=== PATIENT | male | born 1960 | race Caucasian/White ===

== ENCOUNTER → 2018-01-14 | Outpatient (CLI) | payer MEDICARE ==
--- NOTE | 2018-01-15 10:35 | XCELERA REPORT ---
[address] [address] Lower Extremity Arterial Evaluation Name: PATRICE MORGAN Age: 57 yrs Gender: Male : 1960 Patient Status: Outpatient Patient Location: Study Date: 01/14/2018 11:11 AM Procedure: A color flow and duplex scan of the lower extremity arteries was performed bilaterally with velocity and waveform anaylsis. Reason For Study: ULCER Ordering Physician: SONU NEWMAN Performed By: Joanie Mora Measurements and Calculations Right Left SLITTER CUT OFF OPERATOR PSV 161.5 188.6 cm/sec Prox PFA PSV 79.1 51.9 cm/sec Prox SFA PSV 143.8 139.0 cm/sec Mid SFA PSV -96.8 -87.7 cm/sec Dist SFA PSV -76.6 -95.9 cm/sec Prox Pop A PSV 52.8 114.1 cm/sec Dist KAUSHAL PSV 72.3 cm/sec Dist AUTO RESEARCH ENGINEER PSV 75.4 cm/sec Devaughn Pedis PSV 23.2 cm/sec Right Side Arterial Evaluation Below Knee amputation . Normal velocity and triphasic waveforms noted from the Common Femoral artery to the Popliteal artery . 0 % stenosis noted. Ankle Brachial index not applicable.. Left Side Arterial Evaluation Normal velocity and triphasic waveforms noted from the Common Femoral artery to the Popliteal artery. Biphasic in the infrageniculate vessels. 0-19% stenosis at the infrageniculate vessels. Ankle Brachial index not done due to bandaging. Interpretation Summary No hemodynamically significant lesions in the right lower extremity only, on duplex imaging, at rest. BKA. Mild hemodynamically significant lesions in the left lower extremity only, on duplex imaging, at rest. : SONU NEWMAN > Sonu Newman
== END ==
LOC: SP 10:41
PROVIDERS: ATTEND Surgery
DX: L97.222 Non-pressure chronic ulcer of left calf with fat layer exposed (principal)
CPT/HCPCS: 93925

== ENCOUNTER → 2018-02-15 | Outpatient (CLI) | payer MEDICARE ==
[2018-02-15 10:50] LABS: ABSOLUTE EOSINOPHILS # (AUTO) 0.1 10^3/uL (0.0-0.6); ABSOLUTE LYMPHOCYTES (AUTO) 1.5 10^3/uL (0.5-4.7); ABSOLUTE MONOCYTES (AUTO) 0.5 10^3/uL (0.1-1.4); ABSOLUTE NEUT (AUTO) 5.9 10^3/uL (1.7-8.2); BASOPHILS % (AUTO) 0.3 % (0-2); EOSINOPHILS % (AUTO) 1.4 % (0-6); HEMATOCRIT 39.7 % (37.9-51.0); HEMOGLOBIN 13.4 g/dL (13.5-17.0); LYMPHOCYTES % (AUTO) 18.4 % (13-45); MEAN CORPUSCULAR HEMOGLOBIN 28.6 pg (27.0-33.4); MEAN CORPUSCULAR HGB CONC 33.6 g/dL (32.0-36.0); MEAN CORPUSCULAR VOLUME 85 fl (80-97); MONOCYTES % (AUTO) 6.1 % (3-13); PLATELET COUNT 215 10^3/uL (150-450); RED BLOOD COUNT 4.67 10^6/uL (4.35-5.55); RED CELL DISTRIBUTION WIDTH 13.5 % (11.5-14.0); SEGMENTED NEUTROPHILS % (AUTO) 73.8 % (42-78); TOTAL CELLS COUNTED % (AUTO) 100 %
[2018-02-15 11:07] LABS: ALANINE AMINOTRANSFERASE 29 U/L (21-72); ALKALINE PHOSPHATASE 65 U/L (38-126); ANION GAP 12 (5-19); ASPARTATE AMINO TRANSFERASE 23 U/L (17-59); BILIRUBIN,DIRECT 0.3 mg/dL (0.0-0.4); BILIRUBIN,TOTAL 0.7 mg/dL (0.2-1.3); BLOOD UREA NITROGEN 15 mg/dL (7-20); CARBON DIOXIDE 36 mmol/L (22-30); CHLORIDE 94 mmol/L (98-107); GLUCOSE 164 mg/dL (75-110); POTASSIUM 4.2 mmol/L (3.6-5.0); SODIUM 141.8 mmol/L (137-145); TOTAL PROTEIN 7.5 g/dL (6.3-8.2)
== END ==
LOC: OD 09:47
PROVIDERS: ATTEND Surgery
DX: L97.222 Non-pressure chronic ulcer of left calf with fat layer exposed (principal)
CPT/HCPCS: 36415; 80053; 85025

== ENCOUNTER 2018-05-01 15:47 | Emergency (ER) | payer MEDICARE ==
[2018-05-01 15:55] VITALS: BP 144/66
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
== END 2018-05-01 16:26 | disposition home or self-care (01) ==
LOC: ER 15:47
DX: S29.9XXA Unspecified injury of thorax, initial encounter (principal); V89.2XXA Person injured in unspecified motor-vehicle accident, traffic, initial encounter; Z88.3 Allergy status to other anti-infective agents; E11.9 Type 2 diabetes mellitus without complications; Z89.511 Acquired absence of right leg below knee
CPT/HCPCS: 99282

== ENCOUNTER 2018-12-18 08:48 | Observation (INO) | payer MEDICARE ==
--- NOTE | 2018-12-18 10:20 | ER Document Report ---
ED Medical Screen (RME) - General Chief Complaint: Wound Infection Stated Complaint: FOOT PAIN Time Seen by Provider: 12/18/18 10:15 Primary Care Provider: TG ARANDA MD [Primary Care Provider] - Follow up as needed Notes: 58 years old male with a history of diabetes presents today with left foot ulcer which is oozing pus. He is an uncontrolled diabetic. He cannot afford to buy medications therefore he does not take anything. TRAVEL OUTSIDE OF THE [place] IN LAST 30 DAYS: No - Related Data Allergies/Adverse Reactions: sulfamethoxazole [From Bactrim] Allergy (Mild, Verified 12/18/18 08:49) trimethoprim [From Bactrim] Allergy (Mild, Verified 12/18/18 08:49) Past Medical History Endocrine Medical History: Reports: Hx Diabetes Mellitus Type 2 Renal/ Medical History: Denies: Hx Peritoneal Dialysis Past Surgical History: Reports: Hx Orthopedic Surgery - Right BKA Physical Exam - Vital signs Vitals: Temp Pulse Resp BP Pulse Ox 98.6 F 85 20 187/81 H 96 12/18/18 08:57 12/18/18 08:57 12/18/18 08:57 12/18/18 08:57 12/18/18 08:57 Course - Vital Signs Vital signs: Temp Pulse Resp BP Pulse Ox 98.6 F 85 20 187/81 H 96 12/18/18 08:57 12/18/18 08:57 12/18/18 08:57 12/18/18 08:57 12/18/18 08:57 Doctor's Discharge - Discharge Referrals: TG ARANDA MD [Primary Care Provider] - Follow up as needed
[2018-12-18 10:56] LABS: ABSOLUTE EOSINOPHILS # (AUTO) 0.1 10^3/uL (0.0-0.6); ABSOLUTE LYMPHOCYTES (AUTO) 1.3 10^3/uL (0.5-4.7); ABSOLUTE MONOCYTES (AUTO) 0.4 10^3/uL (0.1-1.4); BASOPHILS % (AUTO) 0.5 % (0-2); EOSINOPHILS % (AUTO) 1.6 % (0-6); HEMOGLOBIN 13.1 g/dL (13.5-17.0); LYMPHOCYTES % (AUTO) 19.6 % (13-45); MEAN CORPUSCULAR HGB CONC 34.4 g/dL (32.0-36.0); MEAN CORPUSCULAR VOLUME 87 fl (80-97); MONOCYTES % (AUTO) 5.5 % (3-13); PLATELET COUNT 191 10^3/uL (150-450); RED BLOOD COUNT 4.37 10^6/uL (4.35-5.55); RED CELL DISTRIBUTION WIDTH 12.9 % (11.5-14.0); SEGMENTED NEUTROPHILS % (AUTO) 72.8 % (42-78); TOTAL CELLS COUNTED % (AUTO) 100 %; WHITE BLOOD COUNT 6.9 10^3/uL (4.0-10.5)
[2018-12-18 11:23] LABS: ALANINE AMINOTRANSFERASE 13 U/L (21-72); ALBUMIN 4.1 g/dL (3.5-5.0); ALKALINE PHOSPHATASE 60 U/L (38-126); ANION GAP 10 (5-19); ASPARTATE AMINO TRANSFERASE 17 U/L (17-59); BILIRUBIN,DIRECT 0.3 mg/dL (0.0-0.4); BLOOD UREA NITROGEN 15 mg/dL (7-20); CALCIUM 9.5 mg/dL (8.4-10.2); CARBON DIOXIDE 29 mmol/L (22-30); CHLORIDE 100 mmol/L (98-107); GLUCOSE 216 mg/dL (75-110); POTASSIUM 4.5 mmol/L (3.6-5.0); SODIUM 139.4 mmol/L (137-145); TOTAL PROTEIN 7.4 g/dL (6.3-8.2)
--- NOTE | 2018-12-18 11:48 | RADIOLOGY REPORT (SQ) ---
EXAM DESCRIPTION: FOOT LEFT COMPLETE COMPLETED DATE/TIME: 12/18/2018 11:21 am REASON FOR STUDY: Osteomyelitis COMPARISON: None. NUMBER OF VIEWS: Three views. TECHNIQUE: AP, lateral and oblique without weight bearing radiographic images acquired of the left f oot. LIMITATIONS: None. FINDINGS: MINERALIZATION: Osteopenia. BONES: Deformity of the 5th digit. No obvious osteomyelitis. JOINTS: No erosions. No ray-articular osteopenia. No chondrocalcinosis. SOFT TISSUES: Soft tissue ulcer adjacent to the distal 5th metatarsal. OTHER: No other significant finding. IMPRESSION: Soft tissue ulcer. No obvious osteomyelitis. TECHNICAL DOCUMENTATION: JOB ID: [id number] [email or web address])- All Rights Reserved Reading location - IP/workstation name: [email or web address]
[2018-12-18] MEDS ORDERED: PIPERACILLIN/TAZOBACTAM 3.375 GM VIAL IV ONE (14:44)
[2018-12-18] MEDS ORDERED: VANCOMYCIN HCL INJ 1000 MG VIAL IV ONE (14:44)
[2018-12-18] MEDS ORDERED: FENTANYL CITRATE INJ/PF 100 MCG/2 ML AMPUL IV ONE (14:50)
[2018-12-18] MEDS ORDERED: ONDANSETRON HCL INJ/PF 4 MG/2 ML SDV IV ONE (14:50)
[2018-12-18] MEDS ORDERED: NORMAL SALINE 1000 ML 1,000 ML IV PRN (15:48)
[2018-12-18] MEDS ORDERED: GLUCAGON,HUMAN RECOMB 1 MG INJ IM PRN (15:48)
[2018-12-18] MEDS ORDERED: DEXTROSE 40% GEL 15 GM TUBE PO PRN ×2 (15:48)
[2018-12-18] MEDS ORDERED: DEXTROSE 50%-WATER 25 GM/50 ML DISP.SYRIN IV PRN ×2 (15:48)
[2018-12-18] MEDS ORDERED: VANCOMYCIN HCL 0 MG in DEXTROSE 5%-WATER 250 ML IV NR (16:00)
[2018-12-18 16:10] LABS: INTERNATIONAL RATION (INR) 0.94; PARTIAL THROMBOPLASTIN TIME 25.2 SEC (23.5-35.8); PROTHROMBIN TIME 13.1 SEC (11.4-15.4)
--- NOTE | 2018-12-18 17:40 | PDOC H&P ---
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 Patient says that he underwent shaving of a large painful callus on his left foot 4 weeks ago by his hull grinder. He says that during the procedure he did had some bleeding and thought it would eventually healed. He said that he started developing an increasing wound on the left plantar aspect of his left foot. He said that a week ago, he started noticing mostly serous discharge from the wound but later noticed foul-smelling discharge coming from the ulcer. He denies any fever or chills. In the ER, he was evaluated by surgery who did not deem he needs debridement or surgical intervention at this time but did recommend IV antibiotics. Past Medical History Endocrine Medical History: Reports: Diabetes Mellitus Type 2 Past Surgical History Past Surgical History: Reports: Orthopedic Surgery - Right BKA Social History Smoking Status: Former Smoker Family History Family History: Reviewed & Not Pertinent Parental Family History Reviewed: Yes - no premature CAD Children Family History Reviewed: No Sibling(s) Family History Reviewed.: No Medication/Allergy Allergies/Adverse Reactions: sulfamethoxazole [From Bactrim] Allergy (Mild, Verified 12/18/18 08:49) trimethoprim [From Bactrim] Allergy (Mild, Verified 12/18/18 08:49) Review of Systems All systems: reviewed and no additional remarkable complaints except as stated - as mentioned in HPI Physical Exam Vital Signs: Temp Pulse Resp BP Pulse Ox 98.6 F 85 20 187/81 H 96 12/18/18 08:57 12/18/18 08:57 12/18/18 08:57 12/18/18 08:57 12/18/18 08:57 Intake & Output 12/17/18 12/18/18 12/19/18 06:59 06:59 06:59 Weight 320 lb 8.834 oz General appearance: PRESENT: no acute distress, well-developed, well-nourished Head exam: PRESENT: atraumatic, normocephalic Eye exam: PRESENT: conjunctiva pink, EOMI, PERRLA. ABSENT: scleral icterus Ear exam: PRESENT: normal external ear exam Mouth exam: PRESENT: moist, tongue midline Neck exam: ABSENT: carotid bruit, JVD, lymphadenopathy, thyromegaly Respiratory exam: PRESENT: clear to auscultation flower. ABSENT: rales, rhonchi, wheezes Cardiovascular exam: PRESENT: RRR. ABSENT: diastolic murmur, rubs, systolic mur mur Pulses: PRESENT: normal dorsalis pedis pul Vascular exam: PRESENT: normal capillary refill GI/Abdominal exam: PRESENT: normal bowel sounds, soft. ABSENT: distended, guarding, mass, organolmegaly, rebound, tenderness Rectal exam: PRESENT: deferred Extremities exam: PRESENT: other - right BKA, note of an ulcer on the left foot, appears fluctuant with no active draiange on encounter or warmth Neurological exam: PRESENT: alert, awake, oriented to person, oriented to place, oriented to time, oriented to situation, CN II-XII grossly intact. ABSENT: motor sensory deficit Results Laboratory Results: 12/18/18 10:45 12/18/18 10:45 12/18/18 12/18/18 10:45 10:45 WBC 6.9 RBC 4.37 Hgb 13.1 L Hct 38.0 MCV 87 MCH 30.0 MCHC 34.4 RDW 12.9 Plt Count 191 Seg Neutrophils % 72.8 Lymphocytes % 19.6 Monocytes % 5.5 Eosinophils % 1.6 Basophils % 0.5 Absolute Neutrophils 5.0 Absolute Lymphocytes 1.3 Absolute Monocytes 0.4 Absolute Eosinophils 0.1 Absolute Basophils 0.0 Sodium 139.4 Potassium 4.5 Chloride 100 Carbon Dioxide 29 Anion Gap 10 BUN 15 Creatinine 0.72 Est GFR ( Amer) > 60 Est GFR (Non-Af Amer) > 60 Glucose 216 H Calcium 9.5 Total Bilirubin 1.0 AST 17 ALT 13 L Alkaline Phosphatase 60 Total Protein 7.4 Albumin 4.1 Impressions: Foot X-Ray 12/18/18 10:19 IMPRESSION: Soft tissue ulcer. No obvious osteomyelitis. Assessment & Plan - Diagnosis (1) Cellulitis Is this a current diagnosis for this admission?: Yes Plan: There is noticeable ulcer on the plantar aspect of the left foot. There is fluctuance but no noticeable significant erythema. No apparent necrotic tissue. As mentioned surgery has evaluated patient and has recommended IV antibiotics at this time. Per ER provider, day did not is some foul-smelling discharge coming out from the wound earlier. Unable to appreciate this during encounter. This could be likely a mild beginning cellulitis. Patient does have history of MRSA cellulitis on the same extremity. Will start patient on vancomycin for now. Will also order for wound culture. Surgery will reassess the patient tomorrow morning. (2) Diabetes mellitus Is this a current diagnosis for this admission?: Yes Plan: Accu-Cheks AC at bedtime. Start sliding scale insulin. - Time Time Spent: 30 to 50 Minutes
--- NOTE | 2018-12-18 17:55 | RADIOLOGY REPORT (SQ) ---
EXAM DESCRIPTION: MRI LT LOWER EXTREMITY COMBO COMPLETED DATE/TIME: 12/18/2018 5:42 pm REASON FOR STUDY: Left foot infection COMPARISON: Plain radiograph TECHNIQUE: Multiplanar imaging of the left foot to include T1-weighted, postcontrast T1-weighted, an d T2-weighted images. CONTRAST TYPE AND DOSE: 20 mL Dotarem. RENAL FUNCTION: Not indicated. ACR Type II contrast agent associated with few, if any, unconfounded cases of NSF LIMITATIONS: None. FINDINGS: BONE MARROW: No marrow signal alteration. Specifically no marrow replacement or marrow ed kalyan. No evidence for osteomyelitis. No cortical break through. Marked deformity secondary to prior amputations. SOFT TISSUES: Soft tissue granulation tissue along the 5th metatarsal. No focal abscess. Enhancemen t. OTHER: No other significant finding. IMPRESSION: NO EVIDENCE FOR OSTEOMYELITIS. Granulation tissue. No soft tissue abscess. TECHNICAL DOCUMENTATION: JOB ID: [id number] [employer]- All Rights Reserved Reading location - IP/workstation name: [email or web address]
[2018-12-18] MEDS: INSULIN LISPRO 100 UNIT/ML 3 ML VIAL SUBCUT SCH ×2 (20:04→22:57)
--- NOTE | 2018-12-18 20:49 | PDOC CONSULTATION ---
Consultation Consult Date: 12/18/18 Consult reason:: left foot ulcer History of Present Illness Admission Date/PCP: 12/18/18 16:12 TG ARANDA MD Patient complains of: drainage from left foot ulcer History of Present Illness: PATRICE MORGAN is a 58 year old male who is an insulin dependent diabetic post right BKA had callous from left foot debrided by his oil sprayer about 4 weeks ago. There was some bleeding at that time. A week ago started draining from the left foot and today noted foul smelling drainage. I have seen initially in ED when asked by one of the ED physicians to check the wound. There was a small amount of foul smelling drainage from a very small ulcer in the middle of callous from left lateral foot. No abscess could be appreciated, subsequent MRI showed no osteomyelitis and no abscess. Past Medical History Endocrine Medical History: Reports: Diabetes Mellitus Type 2 Past Surgical History Past Surgical History: Reports: Orthopedic Surgery - Right BKA Social History Smoking Status: Former Smoker - Advance Directive Resuscitation Status: Full Code Family History Family History: Reviewed & Not Pertinent Parental Family History Reviewed: Yes Children Family History Reviewed: No Sibling(s) Family History Reviewed.: No Medication/Allergy Allergies/Adverse Reactions: sulfamethoxazole [From Bactrim] Allergy (Mild, Verified 12/18/18 08:49) trimethoprim [From Bactrim] Allergy (Mild, Verified 12/18/18 08:49) Review of Systems Constitutional: ABSENT: other - no feve/chills Eyes: PRESENT: other - no visual/hearing changes Cardiovascular: PRESENT: other - no chest pains/cough Gastrointestinal: PRESENT: other - no pains Integumentary: PRESENT: other - left lateral foot with callous and a very small ulcer about 3-4 mm with small amount of foul smelling drainage Physical Exam Vital Signs: Temp Pulse Resp BP Pulse Ox 98.5 F 77 16 181/77 H 98 12/18/18 18:19 12/18/18 18:19 12/18/18 18:19 12/18/18 18:19 12/18/18 18:19 Intake & Output 12/17/18 12/18/18 12/19/18 06:59 06:59 06:59 Weight 2.58 kg General appearance: PRESENT: no acute distress Head exam: PRESENT: atraumatic Eye exam: PRESENT: conjunctiva pink Mouth exam: PRESENT: moist Neck exam: PRESENT: full ROM Respiratory exam: PRESENT: clear to auscultation flower Cardiovascular exam: PRESENT: RRR Pulses: PRESENT: normal radial pulses Vascular exam: PRESENT: normal capillary refill GI/Abdominal exam: PRESENT: soft, other - non tender Rectal exam: PRESENT: deferred Extremities exam: PRESENT: other - Right BKA Musculoskeletal exam: PRESENT: ambulatory Neurological exam: PRESENT: alert, oriented to person, oriented to place, oriented to time, oriented to situation Psychiatric exam: PRESENT: appropriate affect Skin exam: PRESENT: normal color, warm Results Laboratory Results: 12/18/18 10:45 12/18/18 10:45 12/18/18 12/18/18 12/18/18 10:45 10:45 15:44 WBC 6.9 RBC 4.37 Hgb 13.1 L Hct 38.0 MCV 87 MCH 30.0 MCHC 34.4 RDW 12.9 Plt Count 191 Seg Neutrophils % 72.8 Lymphocytes % 19.6 Monocytes % 5.5 Eosinophils % 1.6 Basophils % 0.5 Absolute Neutrophils 5.0 Absolute Lymphocytes 1.3 Absolute Monocytes 0.4 Absolute Eosinophils 0.1 Absolute Basophils 0.0 Sodium 139.4 Potassium 4.5 Chloride 100 Carbon Dioxide 29 Anion Gap 10 BUN 15 Creatinine 0.72 Est GFR ( Amer) > 60 Est GFR (Non-Af Amer) > 60 Glucose 216 H Lactic Acid Calcium 9.5 Total Bilirubin 1.0 AST 17 ALT 13 L Alkaline Phosphatase 60 Total Protein 7.4 Albumin 4.1 Blood Type O NEGATIVE Antibody Screen NEGATIVE 12/18/18 18:00 WBC RBC Hgb Hct MCV MCH MCHC RDW Plt Count Seg Neutrophils % Lymphocytes % Monocytes % Eosinophils % Basophils % Absolute Neutrophils Absolute Lymphocytes Absolute Monocytes Absolute Eosinophils Absolute Basophils Sodium Potassium Chloride Carbon Dioxide Anion Gap BUN Creatinine Est GFR ( Amer) Est GFR (Non-Af Amer) Glucose Lactic Acid 1.7 Calcium Total Bilirubin AST ALT Alkaline Phosphatase Total Protein Albumin Blood Type Antibody Screen Impressions: Foot X-Ray 12/18/18 10:19 IMPRESSION: Soft tissue ulcer. No obvious osteomyelitis. Lower Extremity MRI 12/18/18 14:51 IMPRESSION: NO EVIDENCE FOR OSTEOMYELITIS. Granulation tissue. No soft tissue abscess. Assessment & Plan - Diagnosis (1) Cellulitis Is this a current diagnosis for this admission?: Yes (2) Diabetes mellitus Is this a current diagnosis for this admission?: Yes - Time Time Spent: 30 to 50 Minutes - Inpatient Certification Medical Necessity: Need for IV Antibiotics - Plan Summary Plan Summary: Continue with IV antibiotics. No indication for surgical intervention at this time Agree with the patient to be followed at the wound care center
[2018-12-18] MEDS ORDERED: ACETAMINOPHEN 325 MG TABLET PO PRN (22:14)
[2018-12-18] MEDS ORDERED: HYDRALAZINE HCL INJ/PF 20 MG/1 ML SDV IV PRN (22:14)
[2018-12-18] MEDS ORDERED: SERTRALINE HCL 50 MG TABLET PO ONE (22:30)
[2018-12-18] MEDS ORDERED: INSULIN NPH (ISOPHANE), HUMAN 100 UNIT/ML 3 ML SUBCUT ONE (22:45)
[2018-12-18] MEDS ORDERED: AMLODIPINE BESYLATE 10 MG TABLET PO ONE (23:00)
[2018-12-18] MEDS: VANCOMYCIN HCL 1,500 MG in DEXTROSE 5%-WATER 250 ML IV SCH (23:00)
[2018-12-18] MEDS: KETOROLAC TROMETHAMINE INJ/PF 30 MG/1 ML SDV IV PRN (23:03)
--- NOTE | 2018-12-18 23:03 | ER Document Report ---
Entered by MARIA E VILLALTA SCRIBE 12/18/18 1511 Acting as scribe for:KAILA NIEVES DO ED Wound - General Chief Complaint: Wound Infection Stated Complaint: FOOT PAIN Time Seen by Provider: 12/18/18 10:15 Mode of Arrival: Ambulatory Information source: Patient Notes: 58-year-old male with diabetes who presents to the emergency department today with complaints of an infection to his left foot. Patient states this originally started when he was getting a callus shaved off by a flight service agent. Patient states that this area on his foot has been worsening over the last two weeks. 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 Patient denies usage of blood thinning medications. TRAVEL OUTSIDE OF THE [place] IN LAST 30 DAYS: No - Related Data Allergies/Adverse Reactions: sulfamethoxazole [From Bactrim] Allergy (Mild, Verified 12/18/18 08:49) trimethoprim [From Bactrim] Allergy (Mild, Verified 12/18/18 08:49) Past Medical History - General Information source: Patient - Social History Smoking Status: Former Smoker Cigarette use (# per day): No Chew tobacco use (# tins/day): No Frequency of alcohol use: None Drug Abuse: None Lives with: Family Family History: Reviewed & Not Pertinent Patient has suicidal ideation: No Patient has homicidal ideation: No Endocrine Medical History: Reports: Hx Diabetes Mellitus Type 2 Past Surgical History: Reports: Hx Orthopedic Surgery - Right BKA Review of Systems - Review of Systems Constitutional: See HPI, Diaphoresis EENT: No symptoms reported Cardiovascular: No symptoms reported Respiratory: No symptoms reported Gastrointestinal: No symptoms reported Genitourinary: No symptoms reported Male Genitourinary: No symptoms reported Musculoskeletal: No symptoms reported Skin: See HPI, Lesions Hematologic/Lymphatic: No symptoms reported Neurological/Psychological: No symptoms reported -: Yes All other systems reviewed and negative Physical Exam - Vital signs Vitals: Temp Pulse Resp BP Pulse Ox 98.6 F 85 20 187/81 H 96 12/18/18 08:57 12/18/18 08:57 12/18/18 08:57 12/18/18 08:57 12/18/18 08:57 Interpretation: Normal - General General appearance: Appears well, Alert - HEENT Head: Normocephalic, Atraumatic Eyes: Normal Pupils: PERRL - Respiratory Respiratory status: No respiratory distress Chest status: Nontender Breath sounds: Normal Chest palpation: Normal - Cardiovascular Rhythm: Regular Heart sounds: Normal auscultation Murmur: No - Abdominal Inspection: Normal Distension: No distension Bowel sounds: Normal Tenderness: Nontender Organomegaly: No organomegaly - Back Back: Normal, Nontender - Extremities General upper extremity: Normal inspection, Nontender, Normal color, Normal ROM, Normal temperature General lower extremity: Tender, Normal ROM. No: Negin's sign Notes: Patient with BKA on right Left foot with area of edema, tenderness, and drainage over fifth metatarsal. - Neurological Neuro grossly intact: Yes Cognition: Normal Orientation: AAOx4 [place] Coma Scale Eye Opening: Spontaneous [place]za Coma Scale Verbal: Oriented [place] Coma Scale Motor: Obeys Commands [place] Coma Scale Total: 15 Speech: Normal Motor strength normal: LUE, RUE, LLE, RLE Sensory: Normal - Psychological Associated symptoms: Normal affect, Normal mood - Skin Skin Temperature: Warm Skin Moisture: Dry Skin Color: Normal Course - Re-evaluation Re-evalutation: 12/18/18 14:30 Dr. Reese came to see the patient, requests admission for IV antibiotics, will not go to OR now. Patient with infection of left foot and concern for deeper infection. General surgery has been consulted and patient does not need debridement at this time. Discussed with hospitalist and will keep for IV antibiotics. Culture sent. Patient is agreeable to this plan. - Vital Signs Vital signs: Temp Pulse Resp BP Pulse Ox 98.5 F 77 16 181/77 H 98 12/18/18 18:19 12/18/18 18:19 12/18/18 18:19 12/18/18 18:19 12/18/18 18:19 - Laboratory Result Diagrams: 12/18/18 10:45 12/18/18 10:45 Laboratory results interpreted by me: 12/18/18 12/18/18 12/18/18 10:45 10:45 10:45 Hgb 13.1 L Glucose 216 H Hemoglobin A1c % 7.8 H ALT 13 L Discharge - Discharge Clinical Impression: Diabetic infection of left foot Condition: Stable Disposition: ADMITTED OBSERVATION Scribe Attestation: 12/18/18 23:03 I personally performed the services described in the documentation, reviewed and edited the documentation which was dictated to the scribe in my presence, and it accurately records my words and actions. I personally performed the services described in the documentation, reviewed and edited the documentation which was dictated to the scribe in my presence, and it accurately records my words and actions.
[2018-12-19] MEDS: VANCOMYCIN HCL 1,500 MG in DEXTROSE 5%-WATER 250 ML IV SCH ×2 (05:14→14:26)
[2018-12-19] MEDS ORDERED: LISINOPRIL 10 MG TABLET PO SCH (08:00)
[2018-12-19] MEDS ORDERED: FONDAPARINUX SODIUM INJ 2.5 MG/0.5 ML DISP.SYRIN SUBCUT SCH (08:00)
[2018-12-19] MEDS: INSULIN LISPRO 100 UNIT/ML 3 ML VIAL SUBCUT SCH ×2 (09:05→12:28)
[2018-12-19] MEDS: KETOROLAC TROMETHAMINE INJ/PF 30 MG/1 ML SDV IV PRN (09:57)
[2018-12-19] MEDS ORDERED: AMLODIPINE BESYLATE 10 MG TABLET PO SCH (10:00)
[2018-12-19] MEDS ORDERED: INSULIN NPH (ISOPHANE), HUMAN 100 UNIT/ML 3 ML SUBCUT SCH (10:00)
--- NOTE | 2018-12-19 15:28 | PDOC DISCHARGE SUMMARY ---
General - Admit/Disc Date/PCP Admission Date/Primary Care Provider: 12/18/18 16:12 TG ARANDA MD Discharge Date: 12/19/18 - Discharge Diagnosis (1) Diabetic infection of left foot Is this a current diagnosis for this admission?: Yes (2) Type 2 diabetes mellitus Is this a current diagnosis for this admission?: Yes (3) Hypertension Is this a current diagnosis for this admission?: Yes - Additional Information Resuscitation Status: Full Code Prescriptions: Clindamycin HCl 300 mg PO TID #30 capsule Home Medications: Amlodipine Besylate [Norvasc 10 mg Tablet] 10 mg PO DAILY 12/18/18 Aspirin [Ecotrin 81 mg EC Tablet] 81 mg PO DAILY 12/18/18 Calcium Carbonate/Vitamin D3 [Calcium 600 + Vit D Tablet] 1 tab PO DAILY 9 Cholecalciferol (Vitamin D3) [Vitamin D3 1000 Unit Tablet] 1,000 unit PO DAILY 12/18/18 Diclofenac Sodium [Voltaren 50 mg Tablet.dr] 100 mg PO QPM 12/18/18 Furosemide [Lasix 40 mg Tablet] 80 mg PO QAM 12/18/18 Gabapentin [Neurontin] 1,200 mg PO QAM 12/18/18 Glipizide [Glucotrol] 10 mg PO DAILY 12/18/18 Insulin Regular, Human [Humulin R (Reg) Insulin 100 unit/mL] 15 unit SUBCUT TID 12/18/18 Lisinopril [Prinivil] 10 mg PO QAM 12/18/18 Lovastatin 40 mg PO QPM 12/18/18 Metformin HCl [Glucophage Xr] 1,500 mg PO QAM 12/18/18 Metformin HCl [Glucophage Xr] 750 mg PO QPM 12/18/18 Multivitamin [Multiple Vitamins] 1 each PO DAILY 12/18/18 NPH, Human Insulin Isophane [Novolin N (NPH) Insulin 100 unit/mL] 40 unit SUBCUT BID 12/18/18 Mclain-3 Fatty Acids/Fish Oil [Fish Oil 300 mg Softgel] 1 each PO DAILY 12/18/18 Potassium Gluconate [Potassium] 600 mg PO DAILY 12/18/18 Sertraline HCl [Zoloft] 200 mg PO QPM 12/18/18 Vitamin A 8,000 unit PO DAILY 12/18/18 Clindamycin HCl 300 mg PO TID #30 capsule 12/19/18 History of Present Illness History of Present Illness: PATRICE MORGAN is a 58 year old male with a past medical history of insulin- dependent diabetes mellitus, diabetic neuropathy, prior right BKA, history of MRSA cellulitis on the left leg and hypertension who presented with draining wound on the left foot. Patient says that he underwent shaving of a large painful callus on his left foot 4 weeks ago by his health inspector. He says that during the procedure he did had some bleeding and thought it would eventually healed. He said that he started developing an increasing wound on the left plantar aspect of his left foot. He said that a week ago, he started noticing mostly serous discharge from the wound but later noticed foul-smelling discharge coming from the ulcer. He denies any fever or chills. In the ER, he was evalu ated by surgery who did not deem he needs debridement or surgical intervention at this time but did recommend IV antibiotics. Hospital Course Hospital Course: This is a very pleasant 58 years old male patient with past medical history of diabetes mellitus, hypertension, morbid obesity, history of right BKA and history of MRSA cellulitis in the left leg, presented with left diabetic wound. Of note about 4 weeks ago his health inspector debrided large painful callus on his left foot, and following the debridement he started to bleed and later it is secondarily infected and started to drain foul-smelling discharge. Patient denies any fever chills palpitation, diaphoresis, nausea or vomiting. His MRI of the involved foot ruled out osteomyelitis. Patient has been started empirically on Zosyn and vancomycin. Patient has been evaluated by Dr. Macias who states no need for debridement and he recommended to local wound care at wound care center. 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 I advised him to follow-up at the wound care clinic. I will discharge him with clindamycin. Physical Exam Vital Signs: Temp Pulse Resp BP Pulse Ox 98.3 F 81 16 164/72 H 95 12/19/18 12:00 12/19/18 12:00 12/19/18 12:00 12/19/18 12:00 12/19/18 12:00 Intake & Output 12/18/18 12/19/18 12/20/18 06:59 06:59 06:59 Intake Total 1337 Balance 1337 Weight 146.8 kg General appearance: PRESENT: no acute distress, morbidly obese Neck exam: ABSENT: carotid bruit, JVD, lymphadenopathy, thyromegaly Respiratory exam: PRESENT: clear to auscultation flower. ABSENT: rales, rhonchi, wheezes Cardiovascular exam: PRESENT: RRR. ABSENT: diastolic murmur, rubs, systolic murmur GI/Abdominal exam: PRESENT: normal bowel sounds, soft. ABSENT: distended, guarding, mass, organolmegaly, rebound, tenderness Extremities exam: PRESENT: other - Right BKA. Small draining ulcer on the left foot. Neurological exam: PRESENT: alert, awake, oriented to time, oriented to situation Psychiatric exam: PRESENT: normal mood Results Laboratory Results: 12/18/18 10:45 12/18/18 10:45 12/18/18 12/18/18 15:44 18:00 Lactic Acid 1.7 Blood Type O NEGATIVE Antibody Screen NEGATIVE Impressions: Foot X-Ray 12/18/18 10:19 IMPRESSION: Soft tissue ulcer. No obvious osteomyelitis. Lower Extremity MRI 12/18/18 14:51 IMPRESSION: NO EVIDENCE FOR OSTEOMYELITIS. Granulation tissue. No soft tissue abscess. Qualifiers - * PATIENT BEING DISCHARGED WITH ANY OF THE FOLLOWING DIAGNOSIS: No
[2018-12-19 16:21] VITALS: BP 181/77
[2018-12-19] MEDS ORDERED: SERTRALINE HCL 50 MG TABLET PO SCH (18:00)
== END 2018-12-19 17:28 | disposition home or self-care (01) ==
LOC: ER 08:48 → EH 16:12 → 4S 18:17
PROVIDERS: ADMIT Internal Medicine; ATTEND Internal Medicine
DX: E11.621 Type 2 diabetes mellitus with foot ulcer (principal); L97.529 Non-pressure chronic ulcer of other part of left foot with unspecified severity; E11.40 Type 2 diabetes mellitus with diabetic neuropathy, unspecified; I10 Essential (primary) hypertension; E66.01 Morbid (severe) obesity due to excess calories; L84 Corns and callosities; R61 Generalized hyperhidrosis; Z89.511 Acquired absence of right leg below knee; Z79.82 Long term (current) use of aspirin; Z79.899 Other long term (current) drug therapy; Z79.4 Long term (current) use of insulin; Z86.14 Personal history of Methicillin resistant Staphylococcus aureus infection; Z63.6 Dependent relative needing care at home; Z87.891 Personal history of nicotine dependence; Z98.890 Other specified postprocedural states
CPT/HCPCS: 99285; 96375; 96365; 96367; 86900; 86901; 36415 ×2; 87040; 87070; 87205; 86850; 82962 ×2; 85025; 85610; 85730; 87077; 80053; 87186; 80202; 83036; 83605; 73720; 73630; G0378 ×3; A9576; A9270 ×9; J3010; J1885 ×2; J1652; J2405; J7060 ×2; J7030; J3370 ×2; J2543; J1815

== ENCOUNTER 2019-01-01 15:01 | Inpatient (IN) | payer MEDICARE ==
[2019-01-01] MEDS ORDERED: VANCOMYCIN HCL INJ 1000 MG VIAL IV ONE (16:03)
[2019-01-01] MEDS ORDERED: NORMAL SALINE 1000 ML 1,000 ML IV ONE (16:03)
[2019-01-01] MEDS ORDERED: PIPERACILLIN/TAZOBACTAM 4.5 GM VIAL IV ONE (16:03)
[2019-01-01] MEDS ORDERED: ACETAMINOPHEN 325 MG TABLET PO ONE (16:03)
[2019-01-01] MEDS ORDERED: IBUPROFEN SUSP 100 MG/5 ML ORAL SYRINGE PO ONE (16:08)
--- NOTE | 2019-01-01 16:17 | ER Document Report ---
ED Medical Screen (RME) - General Chief Complaint: Fever Stated Complaint: FLU LIKE SYMPTOMS Time Seen by Provider: 01/01/19 16:15 Primary Care Provider: TG ARANDA MD [Primary Care Provider] - Follow up as needed TRAVEL OUTSIDE OF THE [place] IN LAST 30 DAYS: No - HPI Notes: 01/01/19 16:16 Patient presented to the ED complaining of fever and left foot ulcer which has eroded to the bone. Patient is a diabetic. Physical exam showed morbid obesity and left foot ulcer which is suspicious for osteomyelitis. - Related Data Allergies/Adverse Reactions: sulfamethoxazole [From Bactrim] Allergy (Mild, Verified 01/01/19 15:07) trimethoprim [From Bactrim] Allergy (Mild, Verified 01/01/19 15:07) Past Medical History - Social History Chew tobacco use (# tins/day): No Frequency of alcohol use: None Drug Abuse: None Endocrine Medical History: Reports: Hx Diabetes Mellitus Type 2 Renal/ Medical History: Denies: Hx Peritoneal Dialysis Past Surgical History: Reports: Hx Orthopedic Surgery - Right BKA Doctor's Discharge - Discharge Referrals: TG ARANDA MD [Primary Care Provider] - Follow up as needed
[2019-01-01 16:32] LABS: ABSOLUTE LYMPHOCYTES (AUTO) 0.5 10^3/uL (0.5-4.7); ABSOLUTE MONOCYTES (AUTO) 0.6 10^3/uL (0.1-1.4); ABSOLUTE NEUT (AUTO) 6.1 10^3/uL (1.7-8.2); BASOPHILS % (AUTO) 0.2 % (0-2); EOSINOPHILS % (AUTO) 0.4 % (0-6); HEMATOCRIT 37.7 % (37.9-51.0); HEMOGLOBIN 12.9 g/dL (13.5-17.0); LYMPHOCYTES % (AUTO) 6.4 % (13-45); MEAN CORPUSCULAR HEMOGLOBIN 29.3 pg (27.0-33.4); MEAN CORPUSCULAR HGB CONC 34.2 g/dL (32.0-36.0); MEAN CORPUSCULAR VOLUME 86 fl (80-97); MONOCYTES % (AUTO) 8.4 % (3-13); PLATELET COUNT 189 10^3/uL (150-450); RED CELL DISTRIBUTION WIDTH 12.7 % (11.5-14.0); SEGMENTED NEUTROPHILS % (AUTO) 84.6 % (42-78); TOTAL CELLS COUNTED % (AUTO) 100 %; WHITE BLOOD COUNT 7.2 10^3/uL (4.0-10.5)
[2019-01-01 16:36] LABS: VENOUS BLOOD BASE EXCESS 2.9 mmol/L; VENOUS BLOOD HCO3 26.2 mmol/L (20-32); VENOUS BLOOD PCO2 35.9 mmHg (35-63); VENOUS BLOOD PH 7.48 (7.30-7.42)
[2019-01-01 16:40] LABS: INTERNATIONAL RATION (INR) 1.09; PROTHROMBIN TIME 14.7 SEC (11.4-15.4)
[2019-01-01 16:41] LABS: PARTIAL THROMBOPLASTIN TIME 39.9 SEC (23.5-35.8)
[2019-01-01 16:54] LABS: ALANINE AMINOTRANSFERASE 29 U/L (21-72); ALBUMIN 3.8 g/dL (3.5-5.0); ALKALINE PHOSPHATASE 75 U/L (38-126); ANION GAP 13 (5-19); ASPARTATE AMINO TRANSFERASE 31 U/L (17-59); BILIRUBIN,DIRECT 0.4 mg/dL (0.0-0.4); BILIRUBIN,TOTAL 0.9 mg/dL (0.2-1.3); BLOOD UREA NITROGEN 16 mg/dL (7-20); CALCIUM 8.7 mg/dL (8.4-10.2); CARBON DIOXIDE 25 mmol/L (22-30); CHLORIDE 91 mmol/L (98-107); GLUCOSE 201 mg/dL (75-110); SODIUM 129.3 mmol/L (137-145); TOTAL PROTEIN 7.3 g/dL (6.3-8.2)
--- NOTE | 2019-01-01 16:58 | RADIOLOGY REPORT (SQ) ---
EXAM DESCRIPTION: CHEST SINGLE VIEW COMPLETED DATE/TIME: 01/01/2019 4:45 pm REASON FOR STUDY: fever COMPARISON: None. EXAM PARAMETERS: NUMBER OF VIEWS: One view. TECHNIQUE: Single frontal radiographic view of the chest acquired. RADIATION DOSE: NA LIMITATIONS: None. FINDINGS: LUNGS AND PLEURA: No opacities, masses or pneumothorax. No pleural effusion. MEDIASTINUM AND HILAR STRUCTURES: No masses. Contour normal. HEART AND VASCULAR STRUCTURES: Heart normal in size. Normal vasculature. BONES: No acute findings. HARDWARE: None in the chest. OTHER: No other significant finding. IMPRESSION: NO ACUTE RADIOGRAPHIC FINDING IN THE CHEST. TECHNICAL DOCUMENTATION: JOB ID: [id number] [employer]- All Rights Reserved Reading location - IP/workstation name: [email or web address]
--- NOTE | 2019-01-01 16:58 | RADIOLOGY REPORT (SQ) ---
EXAM DESCRIPTION: FOOT LEFT COMPLETE COMPLETED DATE/TIME: 01/01/2019 4:45 pm REASON FOR STUDY: Diabetic foot ulcer COMPARISON: 12/18/2018. NUMBER OF VIEWS: Three views. TECHNIQUE: AP, lateral and oblique radiographic images acquired of the left foot. LIMITATIONS: None. FINDINGS: MINERALIZATION: Normal. BONES: No acute fracture or dislocation. Chronic appearing deformity of the distal 5th metatarsal. No worrisome bone lesions. JOINTS: No effusions. SOFT TISSUES: Superficial ulceration in the soft tissues adjacent to the 5th MTP joint. No foreign b renate. OTHER: No other significant finding. IMPRESSION: SUPERFICIAL SOFT TISSUE ULCERATION ADJACENT TO THE 5TH TOE. NO RADIOPAQUE FOREIGN BODY. CHRONIC APPEARING DEFORMITY OF THE DISTAL 5TH METATARSAL. NO DEFINITIVE RADIOGRAPHIC FINDINGS OF O STEOMYELITIS. TECHNICAL DOCUMENTATION: JOB ID: [id number] [employer]- All Rights Reserved Reading location - IP/workstation name: [email or web address]
--- NOTE | 2019-01-01 18:11 | ER Document Report ---
ED Fever - General Chief Complaint: Fever Stated Complaint: FLU LIKE SYMPTOMS Time Seen by Provider: 01/01/19 18:11 Mode of Arrival: Ambulatory Information source: Patient Notes: HISTORY OF PRESENT ILLNESS: Patient is a 58-year-old male with a past medical history of poorly controlled diabetes status post right [id number] amputation who presents with pain and swelling to the left foot secondary to diabetic foot ulcer. Patient states he has been going to wound care for the past 2 months and was sent to the hospital today because "they probed it and it went to close to the bone." Location: Left foot Onset: 2 months ago Provocation: Walking Quality: Aching/burning Radiation: None Severity: Moderate Timing: Constant Associated symptoms: No fevers or chills, no cough or congestion, no chest pain or shortness of breath REVIEW OF SYSTEMS: CONSTITUTIONAL : Denies fever or chills, no sweats. Denies recent illness. EENT: Denies eye, ear, throat, or mouth pain or symptoms. Denies nasal or sinus congestion. CARDIOVASCULAR: Denies chest pain. RESPIRATORY: Denies cough, cold, or chest congestion. Denies shortness of breath, difficulty breathing, or wheezing. GASTROINTESTINAL: Denies abdominal pain. Denies nausea, vomiting, or diarrhea. Denies constipation. GENITOURINARY: Denies difficulty urinating, painful urination, burning, frequency, or blood in urine. MUSCULOSKELETAL: Positive for left foot pain and drainage from an ulcer. Denies neck or back pain or joint pain or swelling. SKIN: Denies rash or skin lesions. HEMATOLOGIC : Denies easy bruising or bleeding. LYMPHATIC: Denies swollen, enlarged glands. NEUROLOGICAL: Denies altered mental status or loss of consciousness. Denies headache. Denies weakness or paralysis or loss of use of either side. Denies problems with gait or speech. Denies sensory or motor loss. PSYCHIATRIC: Denies anxiety or stress or depression. All other systems reviewed and negative. PHYSICAL EXAMINATION: GENERAL: Well-appearing, well-nourished and in no acute distress. HEAD: Atraumatic, normocephalic. No scalp deformity, depression, or crepitance. EYES: Pupils are 3 mm and equal/round/reactive to light, extraocular movements intact, sclera anicteric, conjunctiva are normal. ENT: Nares patent bilaterally, oropharynx clear without exudates or palatal petechia. Moist mucous membranes. No tonsil hypertrophy. NECK: Normal range of motion, supple without lymphadenopathy. LUNGS: Breath sounds present, equal, and clear to auscultation bilaterally. No wheezes, rales, or rhonchi. HEART: Regular rate and rhythm without murmurs, rubs, or gallops. 2+ peripheral pulses. Normal capillary refill. ABDOMEN: Soft, nontender, nondistended. Normoactive bowel sounds. No guarding, no rebound. No masses appreciated. BACK: Normal contour, no midline tenderness. Rectal exam deferred. GENITAL: Deferred. EXTREMITIES: 2.5-3 cm ulceration to the volar surface of the left foot adjacent to the fifth metatarsal, mild purulent drainage, erythema and significant edema of the entire left foot. Normal range of motion, no pitting or edema. No cyanosis. NEUROLOGICAL: No focal neurological deficits. Moves all extremities spon taneously and on command. PSYCH: Normal mood, normal affect. No suicidal thoughts/ideations. No ho mocidal thoughts/ideations. No hallucinations. SKIN: Warm, dry, normal turgor, no rashes or lesions noted. ASSESSMENT AND PLAN: This patient is a 58-year-old male who presents with diabetic foot ulcer to the left foot with likely cellulitis of the entire foot, question osteomyelitis. 1. Will obtain labs, urine, x-ray of the left foot, CRP/ESR, and give IV vancomycin with cefepime. 2. Will admit to the hospital. TRAVEL OUTSIDE OF THE [place] IN LAST 30 DAYS: No - Related Data Allergies/Adverse Reactions: sulfamethoxazole [From Bactrim] Allergy (Mild, Verified 01/01/19 15:07) trimethoprim [From Bactrim] Allergy (Mild, Verified 01/01/19 15:07) Past Medical History - General Information source: Patient - Social History Smoking Status: Never Smoker Chew tobacco use (# tins/day): No Frequency of alcohol use: None Drug Abuse: None Lives with: Family Family History: Reviewed & Not Pertinent Patient has suicidal ideation: No Patient has homicidal ideation: No - Past Medical History Cardiac Medical History: Reports: None Pulmonary Medical History: Reports: None EENT Medical History: Reports: None Neurological Medical History: Reports: None Endocrine Medical History: Reports: Hx Diabetes Mellitus Type 2 Renal/ Medical History: Reports: None. Denies: Hx Peritoneal Dialysis Malignancy Medical History: Reports None GI Medical History: Reports: None Musculoskeletal Medical History: Reports Hx Musculoskeletal Deformity Skin Medical History: Reports None Psychiatric Medical History: Reports: None Traumatic Medical History: Reports: None Infectious Medical History: Reports: None Past Surgical History: Reports: Hx Orthopedic Surgery - Right BKA - Immunizations Immunizations up to date: Yes Hx Diphtheria, Pertussis, Tetanus Vaccination: Yes History of Influenza Vaccine for 07/2017 - 12/2017 Season: Yes Physical Exam - Vital signs Vitals: Temp Pulse Resp BP Pulse Ox 103.0 F H 126 H 20 123/62 93 01/01/19 15:36 01/01/19 15:36 01/01/19 15:36 01/01/19 15:36 01/01/19 15:36 Course - Re-evaluation Re-evalutation: 01/02/19 03:37 Patient is admitted to the hospital - Vital Signs Vital signs: Temp Pulse Resp BP Pulse Ox 98.5 F 92 19 134/73 H 99 01/02/19 00:46 01/02/19 00:46 01/02/19 00:46 01/02/19 00:46 01/02/19 00:46 - Laboratory Result Diagrams: 01/01/19 16:16 01/01/19 16:16 Laboratory results interpreted by me: 01/01/19 01/01/19 01/01/19 16:16 16:16 16:16 Hgb 12.9 L Hct 37.7 L Seg Neutrophils % 84.6 H Lymphocytes % 6.4 L ESR APTT 39.9 H VBG pH Sodium 129.3 L Chloride 91 L Glucose 201 H C-Reactive Protein Urine Protein Urine Ketones Ur Leukocyte Esterase 01/01/19 01/01/19 01/01/19 16:16 16:16 16:16 Hgb Hct Seg Neutrophils % Lymphocytes % ESR 92 H APTT VBG pH 7.48 H Sodium Chloride Glucose C-Reactive Protein 222.3 H Urine Protein Urine Ketones Ur Leukocyte Esterase 01/01/19 18:00 Hgb Hct Seg Neutrophils % Lymphocytes % ESR APTT VBG pH Sodium Chloride Glucose C-Reactive Protein Urine Protein 30 H Urine Ketones TRACE H Ur Leukocyte Esterase TRACE H - Diagnostic Test Radiology reviewed: Image reviewed, Reports reviewed - EKG Interpretation by Me EKG shows normal: Sinus rhythm Rate: Tachycardia Rhythm: NSR [place]/QRS: No: Right axis deviation, Left axis deviation, RBBB, LBBB, IVCD, LAHB/LAFB, LPHB/LPFB, Bifasicular block Voltage: No: Increased voltage, Consistant with LVH, Decreased voltage, Throughout, Limb leads P Waves: No: DEX, LAE, Absent, AV Dissociation, Other Heart block present: No: 1st Degree, Mobitz 1, Mobitz 2, CHB (3rd degree block) When compared to previous EKG there are: No significant change - Consults Dr. Christine Time consulted: 21:35 - will admit Consulted provider: will come to ER Dr. Staples Time consulted: 21:49 - will come see in the ER Consulted provider: will come to ER Discharge - Discharge Clinical Impression: Diabetic ulcer of foot associated with diabetes mellitus due to underlying condition, limited to breakdown of skin Qualifiers: Diabetic foot ulcer location: unspecified part of foot Laterality: left Qualified Code(s): E08.621 - Diabetes mellitus due to underlying condition with foot ulcer Condition: Stable Disposition: ADMITTED INPATIENT Admitting Provider: Hospitalist Unit Admitted: Medical Floor
[2019-01-01 18:25] LABS: APPEARANCE,URINE SLIGHTLY-CLOUDY; BILIRUBIN,URINE NEGATIVE (NEGATIVE); COLOR,URINE AMBER; GLUCOSE, URINE NEGATIVE (NEGATIVE); KETONES,URINE TRACE mg/dL (NEGATIVE); LEUKOCYTE ESTERASE,URINE TRACE (NEGATIVE); NITRITE,URINE NEGATIVE (NEGATIVE); PROTEIN,URINE 30 mg/dL (NEGATIVE); URINE SPECIFIC GRAVITY 1.025; UROBILINOGEN,URINE NEGATIVE mg/dL (<2.0)
[2019-01-01 18:49] LABS: A TYPE INFLUENZA AG NEGATIVE (NEGATIVE); B INFLUENZA AG NEGATIVE (NEGATIVE)
[2019-01-01] MEDS ORDERED: MORPHINE SULFATE 10 MG/ML INJ IV ONE (19:17)
--- NOTE | 2019-01-01 19:22 | EKG REPORT ---
SEVERITY:- OTHERWISE NORMAL ECG - SINUS TACHYCARDIA : Confirmed by: Vicente Jaimes MD 01-Jan-2019 19:22:09
[2019-01-02] MEDS ORDERED: ACETAMINOPHEN 325 MG TABLET PO PRN (00:10)
[2019-01-02] MEDS ORDERED: GLUCAGON,HUMAN RECOMB 1 MG INJ IM PRN (00:10)
[2019-01-02] MEDS ORDERED: MAG HYDROX/AL HYDROX/SIMETH SUSP 30 ML UDCUP PO PRN (00:10)
[2019-01-02] MEDS ORDERED: DEXTROSE 40% GEL 15 GM TUBE PO PRN ×4 (00:10→00:35)
[2019-01-02] MEDS ORDERED: IPRATROPIUM/ALBUTEROL 0.5-2.5 MG/3 ML AMPUL NEB PRN (00:10)
[2019-01-02] MEDS ORDERED: DEXTROSE 50%-WATER 25 GM/50 ML DISP.SYRIN IV PRN ×4 (00:10→00:35)
--- NOTE | 2019-01-02 00:23 | PDOC H&P ---
History of Present Illness Admission Date/PCP: 01/01/19 21:57 TG ARANDA MD Patient complains of: Draining left foot wound History of Present Illness: PATRICE MORGAN is a 58 year old male with a past medical history of hypertension, diabetes, diabetic neuropathy, morbid obesity, right BKA and cupcake dependency. Patient presents with chronic, malodorous, packed ulcer at the base of the left metatarsal head after referral from the wound care center. He has had purulent discharge without significant pain but developed subjective fever prompting his referral to the emergency department. Patient's wound culture from 2 weeks ago grew community acquired MRSA sensitive to clindamycin. He completed an oral regiment 1 week ago with return of symptoms. In the emergency room he receives empiric antibiotics and referred to the hospitalist for admission as he refuses surgical debridement. Patient insists on diabetic lifestyle and diet compliance while unwrapping a vending machine cupcake. Past Medical History Cardiac Medical History: Reports: None Pulmonary Medical History: Reports: None EENT Medical History: Reports: None Neurological Medical History: Reports: None Endocrine Medical History: Reports: Diabetes Mellitus Type 2 Renal/ Medical History: Reports: None Malignancy Medical History: Reports: None GI Medical History: Reports: None Skin Medical History: Reports: None Psychiatric Medical History: Reports: None Traumatic Medical History: Reports: None Infectious Medical History: Reports: None Past Surgical History Past Surgical History: Reports: Orthopedic Surgery - Right BKA Social History Information Source: Patient, [facility] Records Lives with: Family Smoking Status: Never Smoker - Advance Directive Resuscitation Status: Full Code Family History Family History: Reviewed & Not Pertinent Parental Family History Reviewed: Yes Children Family History Reviewed: Yes Sibling(s) Family History Reviewed.: Yes Medication/Allergy Home Medications: Amlodipine Besylate [Norvasc 10 mg Tablet] 10 mg PO DAILY 12/18/18 Aspirin [Ecotrin 81 mg EC Tablet] 81 mg PO DAILY 12/18/18 Calcium Carbonate/Vitamin D3 [Calcium 600 + Vit D Tablet] 1 tab PO DAILY 12/18/18 Cholecalciferol (Vitamin D3) [Vitamin D3 1000 Unit Tablet] 1,000 unit PO DAILY 12/18/18 Diclofenac Sodium [Voltaren 50 mg Tablet.dr] 100 mg PO QPM 12/18/18 Furosemide [Lasix 40 mg Tablet] 80 mg PO QAM 12/18/18 Gabapentin [Neurontin] 1,200 mg PO QAM 12/18/18 Glipizide [Glucotrol] 10 mg PO DAILY 12/18/18 Insulin Regular, Human [Humulin R (Reg) Insulin 100 unit/mL] 15 unit SUBCUT TID 12/18/18 Lisinopril [Prinivil] 10 mg PO QAM 12/18/18 Lovastatin 40 mg PO QPM 12/18/18 Metformin HCl [Glucophage Xr] 1,500 mg PO QAM 12/18/18 Metformin HCl [Glucophage Xr] 750 mg PO QPM 12/18/18 Multivitamin [Multiple Vitamins] 1 each PO DAILY 12/18/18 NPH, Human Insulin Isophane [Novolin N (NPH) Insulin 100 unit/mL] 40 unit SUBCUT BID 12/18/18 [place]-3 Fatty Acids/Fish Oil [Fish Oil 300 mg Softgel] 1 each PO DAILY 12/18/18 Potassium Gluconate [Potassium] 600 mg PO DAILY 12/18/18 Sertraline HCl [Zoloft] 200 mg PO QPM 12/18/18 Vitamin A 8,000 unit PO DAILY 12/18/18 Clindamycin HCl 300 mg PO TID #30 capsule 12/19/18 Allergies/Adverse Reactions: sulfamethoxazole [From Bactrim] Allergy (Mild, Verified 01/01/19 15:07) trimethoprim [From Bactrim] Allergy (Mild, Verified 01/01/19 15:07) Review of Systems Constitutional: ABSENT: chills, fever(s), headache(s), weight gain, weight loss Eyes: ABSENT: visual disturbances Ears: ABSENT: hearing changes Cardiovascular: ABSENT: chest pain, dyspnea on exertion, edema, orthropnea, palpitations Respiratory: ABSENT: cough, hemoptysis Gastrointestinal: ABSENT: abdominal pain, constipation, diarrhea, hematemesis, hematochezia, nausea, vomiting Genitourinary: ABSENT: dysuria, hematuria Musculoskeletal: ABSENT: joint swelling Integumentary: ABSENT: rash, wounds Neurological: ABSENT: abnormal gait, abnormal speech, confusion, dizziness, focal weakness, syncope Psychiatric: ABSENT: anxiety, depression, homidical ideation, suicidal ideation Endocrine: ABSENT: cold intolerance, heat intolerance, polydipsia, polyuria Hematologic/Lymphatic: ABSENT: easy bleeding, easy bruising Physical Exam Vital Signs: Temp Pulse Resp BP Pulse Ox 98.2 F 18 142/75 H 93 01/01/19 22:02 01/01/19 22:02 01/01/19 22:02 01/01/19 18:02 Intake & Output 12/31/18 01/01/19 01/02/19 11:59 11:59 11:59 Intake Total 1000 Balance 1000 Weight 146.964 kg General appearance: PRESENT: no acute distress, well-developed, well-nourished Head exam: PRESENT: atraumatic, normocephalic Eye exam: PRESENT: conjunctiva pink, EOMI, PERRLA. ABSENT: scleral icterus Ear exam: PRESENT: normal external ear exam Mouth exam: PRESENT: moist, tongue midline Neck exam: ABSENT: carotid bruit, JVD, lymphadenopathy, thyromegaly Respiratory exam: PRESENT: clear to auscultation flower. ABSENT: rales, rhonchi, wheezes Cardiovascular exam: PRESENT: RRR. ABSENT: diastolic murmur, rubs, systolic murmur Pulses: PRESENT: normal dorsalis pedis pul Vascular exam: PRESENT: normal capillary refill GI/Abdominal exam: PRESENT: normal bowel sounds, soft. ABSENT: distended, guar ding, mass, organolmegaly, rebound, tenderness Rectal exam: PRESENT: deferred Extremities exam: PRESENT: full ROM. ABSENT: calf tenderness, clubbing, pedal edema Neurological exam: PRESENT: alert, awake, oriented to person, oriented to place, oriented to time, oriented to situation, CN II-XII grossly intact. ABSENT: motor sensory deficit Psychiatric exam: PRESENT: appropriate affect, normal mood. ABSENT: homicidal ideation, suicidal ideation Skin exam: PRESENT: dry, intact, warm, other - 1 x 1 cm ulcer to the head of the right fifth metatarsal with packing and malodorous discharge. ABSENT: cyanosis, rash Results Laboratory Results: 01/01/19 16:16 01/01/19 16:16 01/01/19 01/01/19 01/01/19 16:16 16:16 16:16 WBC 7.2 RBC 4.40 Hgb 12.9 L Hct 37.7 L MCV 86 MCH 29.3 MCHC 34.2 RDW 12.7 Plt Count 189 Seg Neutrophils % 84.6 H Lymphocytes % 6.4 L Monocytes % 8.4 Eosinophils % 0.4 Basophils % 0.2 Absolute Neutrophils 6.1 Absolute Lymphocytes 0.5 Absolute Monocytes 0.6 Absolute Eosinophils 0.0 Absolute Basophils 0.0 VBG pH VBG pCO2 VBG HCO3 VBG Base Excess Sodium 129.3 L Potassium 4.0 Chloride 91 L Carbon Dioxide 25 Anion Gap 13 BUN 16 Creatinine 1.00 Est GFR ( Amer) > 60 Est GFR (Non-Af Amer) > 60 Glucose 201 H Lactic Acid 1.0 Calcium 8.7 Total Bilirubin 0.9 AST 31 ALT 29 Alkaline Phosphatase 75 C-Reactive Protein Total Protein 7.3 Albumin 3.8 Urine Color Urine Appearance Urine pH Ur Specific [place] Urine Protein Urine Glucose (UA) Urine Ketones Urine Blood Urine Nitrite Ur Leukocyte Esterase Urine WBC (Auto) Urine RBC (Auto) 01/01/19 01/01/19 01/01/19 16:16 16:16 18:00 WBC RBC Hgb Hct MCV MCH MCHC RDW Plt Count Seg Neutrophils % Lymphocytes % Monocytes % Eosinophils % Basophils % Absolute Neutrophils Absolute Lymphocytes Absolute Monocytes Absolute Eosinophils Absolute Basophils VBG pH 7.48 H VBG pCO2 35.9 VBG HCO3 26.2 VBG Base Excess 2.9 Sodium Potassium Chloride Carbon Dioxide Anion Gap BUN Creatinine Est GFR ( Amer) Est GFR (Non-Af Amer) Glucose Lactic Acid Calcium Total Bilirubin AST ALT Alkaline Phosphatase C-Reactive Protein 222.3 H Total Protein Albumin Urine Color [place] Urine Appearance SLIGHTLY-CLOUDY Urine pH 5.0 Ur Specific [place] 1.025 Urine Protein 30 H Urine Glucose (UA) NEGATIVE Urine Ketones TRACE H Urine Blood NEGATIVE Urine Nitrite NEGATIVE Ur Leukocyte Esterase TRACE H Urine WBC (Auto) 3 Urine RBC (Auto) 2 Impressions: Chest X-Ray 01/01/19 16:04 IMPRESSION: NO ACUTE RADIOGRAPHIC FINDING IN THE CHEST. Foot X-Ray 01/01/19 16:08 IMPRESSION: SUPERFICIAL SOFT TISSUE ULCERATION ADJACENT TO THE 5TH TOE. NO RADIOPAQUE FOREIGN BODY. CHRONIC APPEARING DEFORMITY OF THE DISTAL 5TH METATARSAL. NO DEFINITIVE RADIOGRAPHIC FINDINGS OF OSTEOMYELITIS. Assessment & Plan - Diagnosis (1) Diabetic ulcer of foot associated with diabetes mellitus due to underlying condition, limited to breakdown of skin Qualifiers: Diabetic foot ulcer location: unspecified part of foot Laterality: left Qualified Code(s): E08.621 - Diabetes mellitus due to underlying condition with foot ulcer; L97.521 - Non-pressure chronic ulcer of other part of left foot limited to breakdown of skin Is this a current diagnosis for this admission?: Yes Plan: Failed conservative management of IV antibiotics susceptible to cultured organism. Resistant to surgical intervention, continue IV clindamycin, follow- up CBC and surgical consult. (2) Diabetes mellitus Is this a current diagnosis for this admission?: Yes Plan: Obtain outpatient regiment, Humalog sliding scale, follow-up A1c, education (3) Morbid obesity with BMI of 45.0-49.9, adult Is this a current diagnosis for this admission?: Yes Plan: Morbid obesity will evaluate for metabolic cause with evaluation of thyroid function and dietitian consultation - Time Time Spent: 30 to 50 Minutes
[2019-01-02] MEDS ORDERED: GLUCAGON,HUMAN RECOMB 1 MG INJ SUBCUT PRN (00:35)
[2019-01-02] MEDS: OXYCODONE-ACETAMINOPHEN 5-325 MG TABLET PO PRN ×3 (01:54→21:47)
[2019-01-02] MEDS: CLINDAMYCIN 900 MG/D5W RTU 900 MG/50 ML RTUPB IV SCH ×3 (02:00→18:20)
[2019-01-02 05:41] LABS: HEMATOCRIT 33.4 % (37.9-51.0); HEMOGLOBIN 11.6 g/dL (13.5-17.0); MEAN CORPUSCULAR HEMOGLOBIN 29.8 pg (27.0-33.4); MEAN CORPUSCULAR HGB CONC 34.8 g/dL (32.0-36.0); MEAN CORPUSCULAR VOLUME 85 fl (80-97); PLATELET COUNT 156 10^3/uL (150-450); RED BLOOD COUNT 3.91 10^6/uL (4.35-5.55); RED CELL DISTRIBUTION WIDTH 12.4 % (11.5-14.0); WHITE BLOOD COUNT 5.8 10^3/uL (4.0-10.5)
[2019-01-02 05:57] LABS: ANION GAP 9 (5-19); BLOOD UREA NITROGEN 16 mg/dL (7-20); CALCIUM 8.2 mg/dL (8.4-10.2); CARBON DIOXIDE 27 mmol/L (22-30); CHLORIDE 97 mmol/L (98-107); GLUCOSE 223 mg/dL (75-110); POTASSIUM 3.3 mmol/L (3.6-5.0)
[2019-01-02] MEDS: HEPARIN SOD (PORCINE) 5,000 UNIT/ML 1 ML SYRINGE SUBCUT SCH ×4 (06:15→21:43)
[2019-01-02 06:29] LABS: ABSOLUTE LYMPHOCYTES# (MANUAL) 0.8 10^3/uL (0.5-4.7); ABSOLUTE MONOCYTES # (MANUAL) 0.7 10^3/uL (0.1-1.4); ABSOLUTE NEUTROPHILS# (MANUAL) 4.2 10^3/uL (1.7-8.2); BAND NEUTROPHILS % (MANUAL) 4 % (3-5); BASOPHILS % (MANUAL) 0 % (0-2); EOSINOPHILS % (MANUAL) 2 % (0-6); LYMPHOCYTES % (MANUAL) 14 % (13-45); MONOCYTES % (MANUAL) 12 % (3-13); PLATELET COMMENT ADEQUATE; POLYCHROMASIA 1+; ROULEAUX 1+; SEGMENTED NEUTROPHILS % (MAN) 68 % (42-78); TOTAL CELLS COUNTED 100
[2019-01-02] MEDS ORDERED: POTASSIUM CHLORIDE 10 MEQ CAPSULE.ER PO ONE (08:12)
[2019-01-02] MEDS: DOCUSATE SODIUM 100 MG CAPSULE PO SCH ×2 (09:18→18:20)
[2019-01-02] MEDS: INSULIN LISPRO 100 UNIT/ML 3 ML VIAL SUBCUT SCH ×3 (13:00→21:44)
--- NOTE | 2019-01-02 17:21 | PDOC CONSULTATION ---
Consultation Consult Date: 01/02/19 Consult reason:: diabetic foot infection History of Present Illness Admission Date/PCP: 01/01/19 21:57 TG ARANDA MD Patient complains of: pus draining from foot History of Present Illness: PATRICE MORGAN is a 58 year old male seen in consultation at the request of Dr. Christine. The patient has a left plantar foot ulcer that is being followed by the wound care clinic. The patient presented to the wound care clinic yesterday and purulent material was found to emanate from the ulcer. The patient was sent to the hospital for evaluation. The ulcer has been present for several weeks. He is undergone serial debridements of the wound care clinic. Shefali olson reports that he does have fevers and chills. He does not have significant amounts of pain in the foot, due to neuropathy. He does have fatigue and malaise. He denies chest pain, shortness of breath, dizziness, orthostasis, blurry vision, abdominal pain, melena, hematochezia, hematemesis. Patient has had a previous right below-knee amputation secondary to diabetes related complications. Past Medical History Cardiac Medical History: Reports: None Pulmonary Medical History: Reports: None EENT Medical History: Reports: None Neurological Medical History: Reports: None Endocrine Medical History: Reports: Diabetes Mellitus Type 2 Renal/ Medical History: Reports: None Malignancy Medical History: Reports: None GI Medical History: Reports: None Skin Medical History: Reports: None Psychiatric Medical History: Reports: None Traumatic Medical History: Reports: None Infectious Medical History: Reports: None Past Surgical History Past Surgical History: Reports: Orthopedic Surgery - Right BKA Social History Lives with: Family Smoking Status: Never Smoker Frequency of Alcohol Use: None Hx Recreational Drug Use: No Hx Prescription Drug Abuse: No - Advance Directive Resuscitation Status: Full Code Family History Family History: Reviewed & Not Pertinent Parental Family History Reviewed: Yes Children Family History Reviewed: Yes Sibling(s) Family History Reviewed.: Yes Medication/Allergy Home Medications: Amlodipine Besylate [Norvasc 10 mg Tablet] 10 mg PO DAILY 12/18/18 Aspirin [Ecotrin 81 mg EC Tablet] 81 mg PO DAILY 12/18/18 Calcium Carbonate/Vitamin D3 [Calcium 600 + Vit D Tablet] 1 tab PO DAILY 12/18/18 Cholecalciferol (Vitamin D3) [Vitamin D3 1000 Unit Tablet] 1,000 unit PO DAILY 12/18/18 Diclofenac Sodium [Voltaren 50 mg Tablet.dr] 100 mg PO QPM 12/18/18 Furosemide [Lasix 40 mg Tablet] 80 mg PO QAM 12/18/18 Gabapentin [Neurontin] 1,200 mg PO QAM 12/18/18 Glipizide [Glucotrol] 10 mg PO DAILY 12/18/18 Insulin Regular, Human [Humulin R (Reg) Insulin 100 unit/mL] 15 unit SUBCUT TID 12/18/18 Lisinopril [Prinivil] 10 mg PO QAM 12/18/18 Lovastatin 40 mg PO QPM 12/18/18 Metformin HCl [Glucophage Xr] 1,500 mg PO QAM 12/18/18 Metformin HCl [Glucophage Xr] 750 mg PO QPM 12/18/18 Multivitamin [Multiple Vitamins] 1 each PO DAILY 12/18/18 NPH, Human Insulin Isophane [Novolin N (NPH) Insulin 100 unit/mL] 40 unit SUBCUT BID 12/18/18 [place]-3 Fatty Acids/Fish Oil [Fish Oil 300 mg Softgel] 1 each PO DAILY 12/18/18 Potassium Gluconate [Potassium] 600 mg PO DAILY 12/18/18 Sertraline HCl [Zoloft] 200 mg PO QPM 12/18/18 Vitamin A 8,000 unit PO DAILY 12/18/18 Clindamycin HCl 300 mg PO TID #30 capsule 12/19/18 Allergies/Adverse Reactions: sulfamethoxazole [From Bactrim] Allergy (Mild, Verified 01/01/19 15:07) trimethoprim [From Bactrim] Allergy (Mild, Verified 01/01/19 15:07) Review of Systems Constitutional: PRESENT: chills, fatigue, fever(s). ABSENT: headache(s) Eyes: ABSENT: visual disturbances Ears: ABSENT: hearing changes Nose, Mouth, and Throat: ABSENT: mouth pain, sore throat Cardiovascular: ABSENT: chest pain, dyspnea on exertion Respiratory: ABSENT: cough Gastrointestinal: ABSENT: abdominal pain, bloating Genitourinary: ABSENT: dysuria Musculoskeletal: ABSENT: back pain Integumentary: PRESENT: erythema - Left foot, wounds - Left foot Neurological: PRESENT: other - Peripheral lower extremity neuropathy. ABSENT: abnormal movements, abnormal speech, confusion, convulsions, dizziness Psychiatric: ABSENT: anxiety, depression Endocrine: ABSENT: cold intolerance, heat intolerance Hematologic/Lymphatic: ABSENT: easy bleeding, easy bruising Physical Exam Vital Signs: Temp Pulse Resp BP Pulse Ox 98.5 F 92 19 134/73 H 99 01/02/19 00:46 01/02/19 00:46 01/02/19 00:46 01/02/19 00:46 01/02/19 00:46 Intake & Output 12/31/18 01/01/19 01/02/19 06:59 06:59 06:59 Intake Total 1330 Output Total 400 Balance 930 Weight 142.5 kg General appearance: PRESENT: no acute distress, cooperative Head exam: PRESENT: atraumatic, normocephalic Eye exam: PRESENT: EOMI, PERRLA. ABSENT: scleral icterus Mouth exam: PRESENT: moist, neck supple Neck exam: ABSENT: meningismus, tenderness, thyromegaly, tracheal deviation Respiratory exam: PRESENT: clear to auscultation flower, unlabored. ABSENT: chest wall tenderness, tachypnea, wheezes Cardiovascular exam: PRESENT: RRR Pulses: PRESENT: normal radial pulses GI/Abdominal exam: PRESENT: soft. ABSENT: distended, firm, guarding, tenderness Rectal exam: PRESENT: deferred Extremities exam: PRESENT: other - Ulcer to the plantar surface of the left lateral foot. There is erythema involving the lateral aspect of the foot. There is purulent material emanating from the ulcer. Neurological exam: PRESENT: alert, awake, oriented to person, oriented to place, oriented to time, oriented to situation, CN II-XII grossly intact Psychiatric exam: PRESENT: anxious. ABSENT: agitated, depressed Focused psych exam: ABSENT: delusional Skin exam: PRESENT: erythema - Left foot. ABSENT: cyanosis, jaundice Results Laboratory Results: 01/02/19 04:21 01/01/19 01/01/19 01/01/19 16:16 16:16 16:16 WBC 7.2 RBC 4.40 Hgb 12.9 L Hct 37.7 L MCV 86 MCH 29.3 MCHC 34.2 RDW 12.7 Plt Count 189 Seg Neutrophils % 84.6 H Lymphocytes % 6.4 L Monocytes % 8.4 Eosinophils % 0.4 Basophils % 0.2 Absolute Neutrophils 6.1 Absolute Lymphocytes 0.5 Absolute Monocytes 0.6 Absolute Eosinophils 0.0 Absolute Basophils 0.0 VBG pH VBG pCO2 VBG HCO3 VBG Base Excess Sodium 129.3 L Potassium 4.0 Chloride 91 L Carbon Dioxide 25 Anion Gap 13 BUN 16 Creatinine 1.00 Est GFR ( Amer) > 60 Est GFR (Non-Af Amer) > 60 Glucose 201 H Lactic Acid 1.0 Calcium 8.7 Total Bilirubin 0.9 AST 31 ALT 29 Alkaline Phosphatase 75 C-Reactive Protein Total Protein 7.3 Albumin 3.8 Urine Color Urine Appearance Urine pH Ur Specific [place] Urine Protein Urine Glucose (UA) Urine Ketones Urine Blood Urine Nitrite Ur Leukocyte Esterase Urine WBC (Auto) Urine RBC (Auto) 01/01/19 01/01/19 01/01/19 16:16 16:16 18:00 WBC RBC Hgb Hct MCV MCH MCHC RDW Plt Count Seg Neutrophils % Lymphocytes % Monocytes % Eosinophils % Basophils % Absolute Neutrophils Absolute Lymphocytes Absolute Monocytes Absolute Eosinophils Absolute Basophils VBG pH 7.48 H VBG pCO2 35.9 VBG HCO3 26.2 VBG Base Excess 2.9 Sodium Potassium Chloride Carbon Dioxide Anion Gap BUN Creatinine Est GFR ( Amer) Est GFR (Non-Af Amer) Glucose Lactic Acid Calcium Total Bilirubin AST ALT Alkaline Phosphatase C-Reactive Protein 222.3 H Total Protein Albumin Urine Color [place] Urine Appearance SLIGHTLY-CLOUDY Urine pH 5.0 Ur Specific [place] 1.025 Urine Protein 30 H Urine Glucose (UA) NEGATIVE Urine Ketones TRACE H Urine Blood NEGATIVE Urine Nitrite NEGATIVE Ur Leukocyte Esterase TRACE H Urine WBC (Auto) 3 Urine RBC (Auto) 2 01/02/19 04:21 WBC RBC Hgb Hct MCV MCH MCHC RDW Plt Count Seg Neutrophils % Lymphocytes % Monocytes % Eosinophils % Basophils % Absolute Neutrophils Absolute Lymphocytes Absolute Monocytes Absolute Eosinophils Absolute Basophils VBG pH VBG pCO2 VBG HCO3 VBG Base Excess Sodium 133.0 L Potassium 3.3 L Chloride 97 L Carbon Dioxide 27 Anion Gap 9 BUN 16 Creatinine 0.82 Est GFR ( Amer) > 60 Est GFR (Non-Af Amer) > 60 Glucose 223 H Lactic Acid Calcium 8.2 L Total Bilirubin AST ALT Alkaline Phosphatase C-Reactive Protein Total Protein Albumin Urine Color Urine Appearance Urine pH Ur Specific [place] Urine Protein Urine Glucose (UA) Urine Ketones Urine Blood Urine Nitrite Ur Leukocyte Esterase Urine WBC (Auto) Urine RBC (Auto) Impressions: Chest X-Ray 01/01/19 16:04 IMPRESSION: NO ACUTE RADIOGRAPHIC FINDING IN THE CHEST. Foot X-Ray 01/01/19 16:08 IMPRESSION: SUPERFICIAL SOFT TISSUE ULCERATION ADJACENT TO THE 5TH TOE. NO RADIOPAQUE FOREIGN BODY. CHRONIC APPEARING DEFORMITY OF THE DISTAL 5TH METATARSAL. NO DEFINITIVE RADIOGRAPHIC FINDINGS OF OSTEOMYELITIS. Assessment & Plan - Diagnosis (1) Diabetic infection of left foot Is this a current diagnosis for this admission?: Yes - Plan Summary Plan Summary: There is a 58-year-old male with a diabetic foot infection of the left foot. Patient has purulent material emanating from the wound. He has an x-ray that does not show obvious osteomyelitis. I have recommended surgical intervention to open the foot and provide adequate removal of the purulent material and infection. The patient reports that he cannot be "down for that long". The patient has to work to support his . I discussed with him the high failure rates associated with antibiotics alone in the treatment of a diabetic foot abscess. At this time, the patient reports that he cannot afford to be off of his feet and is refusing surgical intervention. He requests that IV antibiotics be arranged. I will restart the patient's diet. The patient request to be seen again at the wound care clinic for any further debridement or surgical intervention. I will see the patient again on an as-needed basis. Please renotify with any questions or concerns.
--- NOTE | 2019-01-02 20:58 | PDOC PROGRESS REPORT ---
Subjective Progress Note for:: 01/02/19 Subjective:: PATRICE MORGAN is a 58 year old male with a past medical history of hypertension, diabetes, diabetic neuropathy, morbid obesity, right BKA and chronic DM foot wound to the left foot followed by the [facility]ound Care clinic who was admitted 01/01/19 for chronic foot wound infection. The patient was seen on morning rounds. HE was found sitting up to the edge of the bed on room air. He was agitated and asking for food. The patient quickly became emotional over recommendations for surgical debridement. He expressed that surgery had already told him this morning that they would arrange for outpatient IV antibiotics. He was seen again this afternoon and at that time, much calmer and agreeable to discussing proposed plans of care (excluding surgical intervention). He does acknowledge that he is at increased risk of infections, sepsis, amputation need, and even if the wound is not appropriately managed. He wishes to delay any surgical interventions as long as possible. He asks that we explore the possibility of superintendent container terminal IV abx prior to surgery. He denies fever, chills, and body aches this morning (sx were present on admission). He further denies chest pain, palpitations, shortness of breath, abd pain, nausea and vomiting. He has no other questions or concerns. No concerns per nursing. Reason For Visit: DM FOOT CELLULITIS MORBID OBESITY HYPONATREMIA Physical Exam Vital Signs: Temp Pulse Resp BP Pulse Ox 100.3 F 105 H 17 167/72 H 96 01/02/19 19:26 01/02/19 19:26 01/02/19 19:26 01/02/19 19:26 01/02/19 19:26 Intake & Output 01/01/19 01/02/19 01/03/19 06:59 06:59 06:59 Intake Total 1330 850 Output Total 400 Balance 930 850 Weight 142.5 kg General appearance: PRESENT: no acute distress, morbidly obese, well-developed, well-nourished Head exam: PRESENT: atraumatic, normocephalic Eye exam: PRESENT: conjunctiva pink, EOMI, PERRLA. ABSENT: scleral icterus Mouth exam: PRESENT: moist, tongue midline Neck exam: ABSENT: carotid bruit, JVD, lymphadenopathy, thyromegaly Respiratory exam: PRESENT: clear to auscultation flower, symmetrical, unlabored. ABSENT: rales, rhonchi, wheezes Cardiovascular exam: PRESENT: RRR. ABSENT: diastolic murmur, rubs, systolic murmur Pulses: PRESENT: +1 pedal pulses bilateral - Left, other - BKA right Vascular exam: PRESENT: normal capillary refill Rectal exam: PRESENT: deferred Extremities exam: PRESENT: full ROM. ABSENT: calf tenderness, clubbing, pedal edema Neurological exam: PRESENT: alert, awake, oriented to person, oriented to place, oriented to time, oriented to situation, CN II-XII grossly intact. ABSENT: motor sensory deficit Psychiatric exam: PRESENT: agitated - resolved in the afternoon, anxious, appropriate affect, normal mood. ABSENT: homicidal ideation, suicidal ideation Skin exam: PRESENT: dry, warm, other - Left lateral foot edema and dark/purple erythema. Plantar ulceration w/ purulent drainage.. ABSENT: cyanosis, rash Results Laboratory Results: 01/02/19 04:21 01/02/19 04:21 01/01/19 01/02/19 01/02/19 16:16 04:21 04:21 WBC 5.8 RBC 3.91 L Hgb 11.6 L Hct 33.4 L MCV 85 MCH 29.8 MCHC 34.8 RDW 12.4 Plt Count 156 Seg Neutrophils % Not Reportable Lymphocytes % Not Reportable Monocytes % Not Reportable Eosinophils % Not Reportable Basophils % Not Reportable Absolute Neutrophils Not Reportable Absolute Lymphocytes Not Reportable Absolute Monocytes Not Reportable Absolute Eosinophils Not Reportable Absolute Basophils Not Reportable Sodium 133.0 L Potassium 3.3 L Chloride 97 L Carbon Dioxide 27 Anion Gap 9 BUN 16 Creatinine 0.82 Est GFR ( Amer) > 60 Est GFR (Non-Af Amer) > 60 Glucose 223 H Calcium 8.2 L C-Reactive Protein 222.3 H Impressions: Chest X-Ray 01/01/19 16:04 IMPRESSION: NO ACUTE RADIOGRAPHIC FINDING IN THE CHEST. Foot X-Ray 01/01/19 16:08 IMPRESSION: SUPERFICIAL SOFT TISSUE ULCERATION ADJACENT TO THE 5TH TOE. NO RADIOPAQUE FOREIGN BODY. CHRONIC APPEARING DEFORMITY OF THE DISTAL 5TH METATARSAL. NO DEFINITIVE RADIOGRAPHIC FINDINGS OF OSTEOMYELITIS. Assessment & Plan - Diagnosis (1) Diabetic infection of left foot Is this a current diagnosis for this admission?: Yes Plan: Acute on chronic diabetic foot infection; followed by the [facility]ound Care [facility]. Previous wound cultures w/ MSSA. Patient previously treated with p.o. clindamycin; wound rapidly worsened after completion of course. Blood cultures pending. Surgery is consulted; has signed off as patient declines surgical interventions. Will apply wet-to-dry w/ daikens dressing twice daily. Continue IV clindamycin. Will consult infectious disease for antibiotic recommendations (likely PICC with 6 weeks therapy). (2) Diabetes mellitus Qualifiers: Diabetes mellitus type: type 2 Diabetes mellitus superintendent container terminal insulin use: with superintendent container terminal use Diabetes mellitus complication status: with skin complications Diabetes mellitus complication detail: with foot ulcer Quali fied Code(s): E11.621 - Type 2 diabetes mellitus with foot ulcer; L97.509 - Non-pressure chronic ulcer of other part of unspecified foot with unspecified severity; Z79.4 - USP (current) use of insulin Is this a current diagnosis for this admission?: Yes Plan: The patient is placed on a consistent carb diet with bgl checks ACHS and Humalog for sliding scale coverage. Patient utilized NPH 40 units BID at home (nonformulary). Will place on reduced dose Lantus 20 units BID as patient is likely to be more compliant with dietary recommendations while admitted. The timber framer helper and registered massage therapist are consulted. Hypoglycemia protocol in place. (3) Hypertension Qualifiers: Hypertension type: essential hypertension Qualified Code(s): I10 - Es sential (primary) hypertension Is this a current diagnosis for this admission?: Yes Plan: Resume home dose amlodipine. (4) Morbid obesity with BMI of 45.0-49.9, adult Is this a current diagnosis for this admission?: Yes Plan: Dietary discretion and lifestyle modifications are advised. Patient has lost 8 lbs since previous admission (1 month ago); 50 lbs over last 6 months. The registered massage therapist and timber framer helper are consulted. - Time Time Spent with patient: 25-34 minutes Medications reviewed and adjusted accordingly: Yes Anticipated discharge: Home with Homehealth Within: within 72 hours - Inpatient Certification Based on my medical assessment, after consideration of the patient's comorbidities, presenting symptoms, or acuity I expect that the services needed warrant INPATIENT care.: Yes I certify that my determination is in accordance with my understanding of Medicare's requirements for reasonable and necessary INPATIENT services [42 CFR 412.3e].: Yes Medical Necessity: Need for IV Antibiotics
[2019-01-03] MEDS: INSULIN GLARGINE,HUM.REC.ANLOG 300 UNIT/3 ML INSULN.PEN SUBCUT SCH ×3 (03:04→21:57)
[2019-01-03] MEDS: CLINDAMYCIN 900 MG/D5W RTU 900 MG/50 ML RTUPB IV SCH ×3 (03:15→17:59)
[2019-01-03 06:14] LABS: ABSOLUTE EOSINOPHILS # (AUTO) 0.1 10^3/uL (0.0-0.6); ABSOLUTE LYMPHOCYTES (AUTO) 1.1 10^3/uL (0.5-4.7); ABSOLUTE MONOCYTES (AUTO) 0.6 10^3/uL (0.1-1.4); ABSOLUTE NEUT (AUTO) 4.7 10^3/uL (1.7-8.2); BASOPHILS % (AUTO) 0.4 % (0-2); EOSINOPHILS % (AUTO) 1.9 % (0-6); HEMATOCRIT 32.8 % (37.9-51.0); HEMOGLOBIN 11.3 g/dL (13.5-17.0); LYMPHOCYTES % (AUTO) 16.5 % (13-45); MEAN CORPUSCULAR HEMOGLOBIN 29.7 pg (27.0-33.4); MEAN CORPUSCULAR HGB CONC 34.5 g/dL (32.0-36.0); MEAN CORPUSCULAR VOLUME 86 fl (80-97); MONOCYTES % (AUTO) 9.2 % (3-13); PLATELET COUNT 172 10^3/uL (150-450); RED BLOOD COUNT 3.82 10^6/uL (4.35-5.55); RED CELL DISTRIBUTION WIDTH 12.7 % (11.5-14.0); TOTAL CELLS COUNTED % (AUTO) 100 %; WHITE BLOOD COUNT 6.6 10^3/uL (4.0-10.5)
[2019-01-03 06:37] LABS: ANION GAP 10 (5-19); BLOOD UREA NITROGEN 11 mg/dL (7-20); CALCIUM 8.6 mg/dL (8.4-10.2); CARBON DIOXIDE 28 mmol/L (22-30); CHLORIDE 99 mmol/L (98-107); GLUCOSE 179 mg/dL (75-110)
[2019-01-03] MEDS: HEPARIN SOD (PORCINE) 5,000 UNIT/ML 1 ML SYRINGE SUBCUT SCH ×3 (06:43→21:47)
[2019-01-03] MEDS: DOCUSATE SODIUM 100 MG CAPSULE PO SCH ×2 (11:08→17:59)
[2019-01-03] MEDS: AMLODIPINE BESYLATE 10 MG TABLET PO SCH (11:08)
[2019-01-03] MEDS: OXYCODONE-ACETAMINOPHEN 5-325 MG TABLET PO PRN ×2 (11:16→20:20)
[2019-01-03] MEDS: INSULIN LISPRO 100 UNIT/ML 3 ML VIAL SUBCUT SCH ×5 (12:55→21:54)
[2019-01-03] MEDS: SODIUM HYPOCHLORITE 0.25% SOLN 473 ML BOTTLE TP SCH ×2 (14:58→21:48)
--- NOTE | 2019-01-03 15:46 | PDOC PROGRESS REPORT ---
Subjective Progress Note for:: 01/03/19 Subjective:: PATRICE MORGAN is a 58 year old male with a past medical history of hypertension, diabetes, diabetic neuropathy, morbid obesity, right BKA and chronic DM foot wound to the left foot followed by the Wound Care clinic who was admitted 01/01/19 for chronic foot wound infection. The patient was seen on morning rounds. He was found sitting up to the edge of the bed on room air. He reports that he is doing well today and has no new concerns. He denies fever, chills, and body aches this morning (sx were present on admission). He further denies chest pain, palpitations, shortness of breath, abd pain, nausea and vomiting or discomfort to left foot. He has no other questions or concerns. No concerns per nursing. Reason For Visit: ACUTE ON CHRONIC FOOT WOUND Physical Exam Vital Signs: Temp Pulse Resp BP Pulse Ox 97.4 F 92 20 146/97 H 93 01/03/19 11:41 01/03/19 11:41 01/03/19 11:41 01/03/19 11:41 01/03/19 11:41 Intake & Output 01/02/19 01/03/19 01/04/19 06:59 06:59 06:59 Intake Total 1330 1749 Output Total 400 1200 Balance 930 549 Weight 142.5 kg 143.1 kg 143.1 kg General appearance: PRESENT: no acute distress, morbidly obese, well-developed Head exam: PRESENT: atraumatic, normocephalic Eye exam: PRESENT: conjunctiva pink, EOMI, PERRLA Mouth exam: PRESENT: moist Neck exam: PRESENT: full ROM Respiratory exam: PRESENT: clear to auscultation flower, symmetrical, unlabored Cardiovascular exam: PRESENT: RRR Pulses: PRESENT: +1 pedal pulses bilateral - left, other - right BKA GI/Abdominal exam: PRESENT: normal bowel sounds, soft. ABSENT: tenderness Extremities exam: PRESENT: full ROM Musculoskeletal exam: PRESENT: ambulatory Neurological exam: PRESENT: alert, awake, oriented to person, oriented to place, oriented to time, oriented to situation, CN II-XII grossly intact. ABSENT: motor sensory deficit Psychiatric exam: PRESENT: appropriate affect, normal mood. ABSENT: homicidal ideation, suicidal ideation Skin exam: PRESENT: dry, warm. ABSENT: cyanosis, intact - Left lateral foot edema and dark/purple erythema. Plantar ulceration w/ purulent, foul smelling, drainage, rash Results Laboratory Results: 01/03/19 05:06 01/03/19 05:06 01/03/19 01/03/19 05:06 05:06 WBC 6.6 RBC 3.82 L Hgb 11.3 L Hct 32.8 L MCV 86 MCH 29.7 MCHC 34.5 RDW 12.7 Plt Count 172 Seg Neutrophils % 72.0 Lymphocytes % 16.5 Monocytes % 9.2 Eosinophils % 1.9 Basophils % 0.4 Absolute Neutrophils 4.7 Absolute Lymphocytes 1.1 Absolute Monocytes 0.6 Absolute Eosinophils 0.1 Absolute Basophils 0.0 Sodium 137.0 Potassium 4.0 Chloride 99 Carbon Dioxide 28 Anion Gap 10 BUN 11 Creatinine 0.71 Est GFR ( Amer) > 60 Est GFR (Non-Af Amer) > 60 Glucose 179 H Calcium 8.6 01/01/19 18:00 Clean Catch Midstream Urine Culture - Final Pseudomonas Aeruginosa Impressions: Chest X-Ray 01/01/19 16:04 IMPRESSION: NO ACUTE RADIOGRAPHIC FINDING IN THE CHEST. Foot X-Ray 01/01/19 16:08 IMPRESSION: SUPERFICIAL SOFT TISSUE ULCERATION ADJACENT TO THE 5TH TOE. NO RADIOPAQUE FOREIGN BODY. CHRONIC APPEARING DEFORMITY OF THE DISTAL 5TH METATARSAL. NO DEFINITIVE RADIOGRAPHIC FINDINGS OF OSTEOMYELITIS. Assessment & Plan - Diagnosis (1) Diabetic infection of left foot Is this a current diagnosis for this admission?: Yes Plan: Acute on chronic diabetic foot infection; followed by the Wound Care Clinic. Previous wound cultures w/ MSSA. Patient previously treated with p.o. clindamycin; wound rapidly worsened after completion of course. Blood cultures negative at 24 hours. Surgery was consulted; has signed off as patient declines surgical interventions. Will apply wet-to-dry w/ dakens dressing twice daily. Continue IV clindamycin. Will consult infectious disease for antibiotic recommendations (likely PICC with 6 weeks therapy). Patient has been educated that this treatment course has high probability of failure. He continues to decline surgical intervention. (2) Diabetes mellitus Qualifiers: Diabetes mellitus type: type 2 Diabetes mellitus termite treater insulin use: with termite treater use Diabetes mellitus complication status: with skin complications Diabetes mellitus complication detail: with foot ulcer Qualified Code(s): E11.621 - Type 2 diabetes mellitus with foot ulcer; L97.509 - Non-pressure chronic ulcer of other part of unspecified foot with unspecified severity; Z79.4 - prison (current) use of insulin Is this a current diagnosis for this admission?: Yes Plan: The patient is placed on a consistent carb diet with bgl checks ACHS and Humalog for sliding scale coverage. Patient utilized NPH 40 units BID at home (nonformulary). Will place on reduced dose Lantus 20 units BID as patient is likely to be more compliant with dietary recommendations while admitted. The certified diabetes educator and registered nurse cardiac telemetry are consulted. Hypoglycemia protocol in place. (3) Hypertension Qualifiers: Hypertension type: essential hypertension Qualified Code(s): I10 - Essential (primary) hypertension Is this a current diagnosis for this admission?: Yes Plan: Remains somewhat hypertensive; 151/70 Continue home dose amlodipine. Will start low dose lisinopril for HTN and renal protective properties in DM patient. (4) Morbid obesity with BMI of 45.0-49.9, adult Is this a current diagnosis for this admission?: Yes Plan: Dietary discretion and lifestyle modifications are advised. Patient has lost 8 lbs since previous admission (1 month ago); 50 lbs over last 6 months. The registered nurse cardiac telemetry and certified diabetes educator are consulted. - Time Time Spent with patient: 15-24 minutes Medications reviewed and adjusted accordingly: Yes Anticipated discharge: Home Within: within 72 hours
--- NOTE | 2019-01-03 17:05 | Progress Note ---
Provider Note Provider Note: ID Consult Note Asked to review patient's chart by Adina Camarillo NP. Pt not seen or examined. Mr. Gupta is a 58 year old morbidly obese man who has PMH/PSH including HTN, DM, diabetic neuropathy, former tobacco use and s/p R BKA due to diabetic complications who presented to the ED on 01/01/19 with chronic malodorous L lateral foot ulcer and flu-like symptoms (fatigue, malaise, subjective fever and chills, headache). Wound dimensions were noted to be 1.3 x 1.7 x 2.5 cm deep. Bone was reported to be exposed. On admission he was noted to have redness and swelling of the lateral L foot and purulent drainage emanating from the ulcer. Pt had fever of 103 F on presentation. Blood cultures drawn on admission are negative. ESR was 92. CRP was 223.Plain films of the foot showed no definitive radiographic findings of osteomyelitis. The patient was evaluated by Surgery, but he refused any surgical intervention for suspected diabetic foot abscess, and wants IV antibiotics arranged. Notably, the patient also had a recent prior admission for malodorous draining L foot wound. Plain films and MRI at that time showed no evidence of osteomyelitis. A culture (unclear how it was obtained) from the foot L on 12/18/18 grew 4+ Staph aureus (MSSA) and 1+ Klebsiella oxytoca. He was prescribed clindamycin 300 mg TID x 10 days at discharge on 12/18. Impression/Recommendations Left diabetic foot infection, possible osteomyelitis - If the bone is exposed, in the setting of such elevated inflammatory markers and purulent discharge and wound size, even with recent negative plain films and MRI, osteomyelitis is still possible. - Cefazolin IV 2 grams q 8h IV (or 6 grams given as a continuous infusion through a pump) would address both the MSSA and Klebsiella oxytoca that were isolated previously, although the quality of that specimen is unclear. It is unfortunately the only information to go on. Whether this will be successfully eradicated without surgical debridement is unclear. - Although Rocephin 2 grams daily IV can be an alternative to treat osteoarticular MSSA infections following adequate surgical debridement, with the higher likelihood of failure, I would hesitate to treat the patient with anything less than the preferred drugs for serious MSSA infections (IV antista phylococcal penicillins or first generation cephalosporins). - Agree, aim for 6 weeks of treatment. If the patient does not improve as expected, surgery needs to be revisited, not just more or expanded antibiotics. Antibiotics do not penetrate devitalized tissue or get into sizable collections of pus very well. Particularly if there is an abscess present, surgical intervention for drainage/debridement would be most critical. There is a limitation to what can be achieved with medical management alone. William Dominguez MD [facility] Infectious Diseases pager [phone]
[2019-01-04] MEDS: CLINDAMYCIN 900 MG/D5W RTU 900 MG/50 ML RTUPB IV SCH ×2 (01:00→15:42)
[2019-01-04] MEDS: HEPARIN SOD (PORCINE) 5,000 UNIT/ML 1 ML SYRINGE SUBCUT SCH ×3 (05:03→22:33)
[2019-01-04] MEDS: INSULIN LISPRO 100 UNIT/ML 3 ML VIAL SUBCUT SCH ×4 (08:00→22:31)
[2019-01-04] MEDS: SODIUM HYPOCHLORITE 0.25% SOLN 473 ML BOTTLE TP SCH ×2 (09:00→22:32)
[2019-01-04] MEDS: OXYCODONE-ACETAMINOPHEN 5-325 MG TABLET PO PRN ×2 (09:12→22:32)
[2019-01-04] MEDS: DOCUSATE SODIUM 100 MG CAPSULE PO SCH ×2 (09:13→19:57)
[2019-01-04] MEDS: AMLODIPINE BESYLATE 10 MG TABLET PO SCH (09:13)
[2019-01-04] MEDS: INSULIN GLARGINE,HUM.REC.ANLOG 300 UNIT/3 ML INSULN.PEN SUBCUT SCH ×2 (09:14→22:45)
[2019-01-04] MEDS ORDERED: LISINOPRIL 5 MG TABLET PO SCH (10:00)
--- NOTE | 2019-01-04 16:03 | PDOC PROGRESS REPORT ---
Subjective Progress Note for:: 01/04/19 Subjective:: PATRICE MORGAN is a 58 year old male with a past medical history of hypertension, diabetes, diabetic neuropathy, morbid obesity, right BKA and chronic DM foot wound to the left foot followed by the Wound Care clinic who was admitted 01/01/19 for chronic foot wound infection. The patient was seen on morning rounds. He was found resting in bed on room air. He reports that he is doing well today and has no new concerns; he does ask to be allowed to shower. He denies fever, chills, and body aches this morning (sx were present on admission). He further denies chest pain, palpitations, shortness of breath, abd pain, nausea and vomiting or discomfort to left foot. We discussed the recommendations by ID for surgical wound debridement in addition to antibiotic therapy. He confirms understanding of recommendations and even discusses why recommendations might include a toe amputation. However, he continues to decline surgical evaluation and interventions at this time. He has no other questions or concerns. No concerns per nursing. Reason For Visit: ACUTE ON CHRONIC FOOT WOUND Physical Exam Vital Signs: Temp Pulse Resp BP Pulse Ox 97.6 F 86 20 174/70 H 96 01/04/19 11:16 01/04/19 11:16 01/04/19 11:16 01/04/19 11:16 01/04/19 11:16 Intake & Output 01/03/19 01/04/19 01/05/19 06:59 06:59 06:59 Intake Total 1749 1792 Output Total 1200 975 Balance 549 817 Weight 143.1 kg 143 kg General appearance: PRESENT: no acute distress, morbidly obese, well-developed Head exam: PRESENT: atraumatic, normocephalic Eye exam: PRESENT: conjunctiva pink, EOMI, PERRLA Mouth exam: PRESENT: moist Respiratory exam: PRESENT: clear to auscultation flower, symmetrical, unlabored. ABSENT: rhonchi, wheezes Cardiovascular exam: PRESENT: RRR Vascular exam: PRESENT: normal capillary refill GI/Abdominal exam: PRESENT: normal bowel sounds, soft. ABSENT: distended, guarding, mass, organolmegaly, rebound, tenderness Extremities exam: PRESENT: full ROM, pedal edema - slight, other - Right BKA Neurological exam: PRESENT: alert, awake, oriented to person, oriented to place, oriented to time, oriented to situation, CN II-XII grossly intact. ABSENT: motor sensory deficit Psychiatric exam: PRESENT: appropriate affect, normal mood. ABSENT: homicidal ideation, suicidal ideation Skin exam: PRESENT: dry, warm, other - Left lateral foot edema and dark/purple erythema. Plantar ulceration w/ purulent, foul smelling, drainage. ABSENT: cyanosis, intact, rash Results Laboratory Results: 01/03/19 05:06 01/03/19 05:06 Impressions: Chest X-Ray 01/01/19 16:04 IMPRESSION: NO ACUTE RADIOGRAPHIC FINDING IN THE CHEST. Foot X-Ray 01/01/19 16:08 IMPRESSION: SUPERFICIAL SOFT TISSUE ULCERATION ADJACENT TO THE 5TH TOE. NO RADIOPAQUE FOREIGN BODY. CHRONIC APPEARING DEFORMITY OF THE DISTAL 5TH METATARSAL. NO DEFINITIVE RADIOGRAPHIC FINDINGS OF OSTEOMYELITIS. Assessment & Plan - Diagnosis (1) Diabetic infection of left foot Is this a current diagnosis for this admission?: Yes Plan: Acute on chronic diabetic foot infection; followed by the Wound Care Clinic. Previous wound cultures w/ MSSA. Patient previously treated with p.o. clindamycin; wound rapidly worsened after completion of course. Blood cultures negative at 48 hours. Surgery was consulted; has signed off as patient declines surgical interventions. Will apply wet-to-dry w/ dakens dressing twice daily. Will stop IV clindamycin and start Ancef per ID's recommendations. Infectious Disease was consulted for antibiotic recommendations; appreciate Dr. Dominguez's assistance. Advises Ancef 2gm every 8 hours x 6 weeks and continued attempts to arrange for surgical debridement. She advises that if this course of antibiotics fails, there would NOT be recommendations for continued/prolonged course or escalation of therapy without also addressing wound surgically. Patient has been educated that this treatment course has high probability of failure. He continues to decline surgical intervention. (2) Diabetes mellitus Qualifiers: Diabetes mellitus type: type 2 Diabetes mellitus assisted insulin use: with assisted use Diabetes mellitus complication status: with skin compl ications Diabetes mellitus complication detail: with foot ulcer Qualified Code(s): E11.621 - Type 2 diabetes mellitus with foot ulcer; L97.509 - Non- pressure chronic ulcer of other part of unspecified foot with unspecified severity; Z79.4 - computer terminal operator (current) use of insulin Is this a current diagnosis for this admission?: Yes Plan: The patient is placed on a consistent carb diet with bgl checks ACHS and Humalog for sliding scale coverage. Patient utilized NPH 40 units BID at home (nonformulary). Will place on reduced dose Lantus, 22 units BID, as patient is likely to be more compliant with dietary recommendations while admitted. The chemical educator and hospice registered nurse are consulted. Hypoglycemia protocol in place. (3) Hypertension Qualifiers: Hypertension type: essential hypertension Qualified Code(s): I10 - Essential (primary) hypertension Is this a current diagnosis for this admission?: Yes Plan: Remains hypertensive; 174/70 Continue home dose amlodipine. Will start lisinopril for HTN and renal protective properties in DM patient. Low sodium diet. (4) Morbid obesity with BMI of 45.0-49.9, adult Is this a current diagnosis for this admission?: Yes Plan: Dietary discretion and lifestyle modifications are advised. Patient has lost 8 lbs since previous admission (1 month ago); 50 lbs over last 6 months. The hospice registered nurse and chemical educator are consulted. - Time Time Spent with patient: 15-24 minutes Medications reviewed and adjusted accordingly: Yes Anticipated discharge: Home with Homehealth Within: within 48 hours
[2019-01-04] MEDS ORDERED: CLINDAMYCIN 900 MG/D5W RTU 900 MG/50 ML RTUPB IV SCH (22:00)
[2019-01-04] MEDS: CEFAZOLIN 2 GM/D5W RTU 2 GM/50 ML RTUPB IV SCH (22:32)
[2019-01-05] MEDS: CEFAZOLIN 2 GM/D5W RTU 2 GM/50 ML RTUPB IV SCH ×3 (05:43→21:37)
[2019-01-05] MEDS: HEPARIN SOD (PORCINE) 5,000 UNIT/ML 1 ML SYRINGE SUBCUT SCH ×3 (05:43→21:49)
[2019-01-05] MEDS: OXYCODONE-ACETAMINOPHEN 5-325 MG TABLET PO PRN ×3 (06:38→21:50)
[2019-01-05] MEDS: LISINOPRIL 10 MG TABLET PO SCH (09:14)
[2019-01-05] MEDS: AMLODIPINE BESYLATE 10 MG TABLET PO SCH (09:14)
[2019-01-05] MEDS: INSULIN LISPRO 100 UNIT/ML 3 ML VIAL SUBCUT SCH ×4 (09:14→21:46)
[2019-01-05] MEDS ORDERED: LISINOPRIL 5 MG TABLET PO SCH (10:00)
[2019-01-05] MEDS: INSULIN GLARGINE,HUM.REC.ANLOG 300 UNIT/3 ML INSULN.PEN SUBCUT SCH ×2 (13:04→21:35)
[2019-01-05] MEDS: DOCUSATE SODIUM 100 MG CAPSULE PO SCH ×2 (13:04→18:00)
[2019-01-05] MEDS: SODIUM HYPOCHLORITE 0.25% SOLN 473 ML BOTTLE TP SCH ×2 (13:05→21:37)
--- NOTE | 2019-01-05 14:44 | PDOC PROGRESS REPORT ---
Subjective Progress Note for:: 01/05/19 Subjective:: PATRICE MORGAN is a 58 year old male with a past medical history of hypertension, diabetes, diabetic neuropathy, morbid obesity, right BKA and chronic DM foot wound to the left foot followed by the Wound Care clinic who was admitted 01/01/19 for chronic foot wound infection. The patient was seen on morning rounds. He was found resting in the recliner on room air. He reports that he is doing well today and has no new concerns. He denies fever, chills, and body aches this morning (sx were present on admission). He further denies chest pain, palpitations, shortness of breath, abd pain, nausea and vomiting or discomfort to left foot. We again discussed the recommendations for surgical wound debridement in addition to antibiotic therapy. I expressed that I felt that the while the wound itself appeared stable, the surrounding tissue had increased erythema and edema. He confirms understanding of recommendations but again declines surgical evaluation and interventions at this time. He has no other questions or concerns. No concerns per nursing. Reason For Visit: ACUTE ON CHRONIC FOOT WOUND Physical Exam Vital Signs: Temp Pulse Resp BP Pulse Ox 98.1 F 79 16 144/66 H 100 01/05/19 12:00 01/05/19 12:00 01/05/19 12:00 01/05/19 12:00 01/05/19 12:00 Intake & Output 01/04/19 01/05/19 01/06/19 06:59 06:59 06:59 Intake Total 1792 1521 Output Total 975 3600 Balance 817 -2079 Weight 143 kg 141.4 kg General appearance: PRESENT: no acute distress, morbidly obese, well-developed Head exam: PRESENT: atraumatic, normocephalic Eye exam: PRESENT: conjunctiva pink, EOMI, PERRLA Mouth exam: PRESENT: moist Teeth exam: PRESENT: poor dentation Respiratory exam: PRESENT: clear to auscultation flower, symmetrical, unlabored. ABSENT: rhonchi, wheezes Cardiovascular exam: PRESENT: RRR. ABSENT: systolic murmur Pulses: PRESENT: +1 pedal pulses bilateral - Left GI/Abdominal exam: PRESENT: normal bowel sounds, soft. ABSENT: tenderness Rectal exam: PRESENT: deferred Extremities exam: PRESENT: full ROM, pedal edema - trace edema to Left foot; increased from yesterday, other - Right BKA Musculoskeletal exam: PRESENT: ambulatory Neurological exam: PRESENT: alert, awake, oriented to person, oriented to place, oriented to time, oriented to situation, CN II-XII grossly intact Psychiatric exam: PRESENT: appropriate affect, normal mood Skin exam: PRESENT: dry, normal color, warm, other - Left foot edema is increased, erythema is now bright in color and spreds to the dorsal aspect of the foot (outlined w/ skin marker today). Now w/ open ulceration measuring ~1.5 sm round to lateral aspect of foot with subcutaneous/fatty appearing tissue protruding out of the ulceration. Plantar ulceration is 1 cm round; scant, foul smelling, drainage is present. ABSENT: intact Results Laboratory Results: 01/03/19 05:06 01/03/19 05:06 Impressions: Chest X-Ray 01/01/19 16:04 IMPRESSION: NO ACUTE RADIOGRAPHIC FINDING IN THE CHEST. Foot X-Ray 01/01/19 16:08 IMPRESSION: SUPERFICIAL SOFT TISSUE ULCERATION ADJACENT TO THE 5TH TOE. NO RADIOPAQUE FOREIGN BODY. CHRONIC APPEARING DEFORMITY OF THE DISTAL 5TH METATARSAL. NO DEFINITIVE RADIOGRAPHIC FINDINGS OF OSTEOMYELITIS. Assessment & Plan - Diagnosis (1) Diabetic infection of left foot Is this a current diagnosis for this admission?: Yes Plan: Acute on chronic diabetic foot infection; followed by the Wound Care Clinic. Appears worsened in appearance today. Patient remains afebrile with nml WBC. Previous wound cultures w/ MSSA. Patient previously treated with p.o. clindamycin; wound rapidly worsened after completion of course. Blood cultures negative at 72 hours. Repeat CBC, CRP, and Sed Rate in the morning. Surgery was consulted; has signed off as patient declines surgical interventions . Will apply wet-to-dry w/ dakens dressing twice daily. Continue Ancef per ID's recommendations; end date 02/08/19. Infectious Disease was consulted for antibiotic recommendations; appreciate Dr. Dominguez's assistance. Advises Ancef 2gm every 8 hours x 6 weeks and continued attempts to arrange for surgical debridement. She advises that if this course of antibiotics fails, there would NOT be recommendations for continued/prolonged course or escalation of therapy without also addressing wound surgically. Patient is again educated that this treatment course has high probability of failure. It is explained that treatment failure will likely result in increased risk of higher-level amputation and/or development of life-threatening sepsis. He continues to decline surgical intervention. (2) Diabetes mellitus Qualifiers: Diabetes mellitus type: type 2 Diabetes mellitus fpc insulin use: with technician terminal and repeater use Diabetes mellitus complication status: with skin complications Diabetes mellitus complication detail: with foot ulcer Qualified Code(s): E11.621 - Type 2 diabetes mellitus with foot ulcer; L97.509 - Non-pressure chronic ulcer of other part of unspecified foot with unspecified severity; Z79.4 - long term care pharmacist (current) use of insulin Is this a current diagnosis for this admission?: Yes Plan: The patient is placed on a consistent carb diet with bgl checks ACHS and Humalog for sliding scale coverage. Patient utilized NPH 40 units BID at home (nonformulary). Will place on reduced dose Lantus, 24 units BID, as patient is likely to be more compliant with dietary recommendations while admitted. The school vocational educator and green belt are consulted. Hypoglycemia protocol in place. (3) Hypertension Qualifiers: Hypertension type: essential hypertension Qualified Code(s): I10 - Essential (primary) hypertension Is this a current diagnosis for this admission?: Yes Plan: Remains hypertensive, though improved; 174/70-> 144/66 Continue home dose amlodipine. Continue lisinopril 10 mg daily for HTN and renal protective properties in DM patient. Low sodium diet. (4) Morbid obesity with BMI of 45.0-49.9, adult Is this a current diagnosis for this admission?: Yes Plan: Dietary discretion and lifestyle modifications are advised. Patient has lost 8 lbs since previous admission (1 month ago); 50 lbs over last 6 months. The green belt and school vocational educator are consulted. - Time Time Spent with patient: 15-24 minutes Medications reviewed and adjusted accordingly: Yes Anticipated discharge: Home with Homehealth Within: within 24 hours
[2019-01-06] MEDS: HEPARIN SOD (PORCINE) 5,000 UNIT/ML 1 ML SYRINGE SUBCUT SCH ×2 (05:09→13:03)
[2019-01-06] MEDS: CEFAZOLIN 2 GM/D5W RTU 2 GM/50 ML RTUPB IV SCH ×2 (05:13→13:03)
[2019-01-06] MEDS: OXYCODONE-ACETAMINOPHEN 5-325 MG TABLET PO PRN (06:06)
[2019-01-06 06:24] LABS: HEMOGLOBIN 12.8 g/dL (13.5-17.0); RED BLOOD COUNT 4.34 10^6/uL (4.35-5.55); WHITE BLOOD COUNT 8.6 10^3/uL (4.0-10.5)
[2019-01-06 06:25] LABS: MEAN CORPUSCULAR HEMOGLOBIN 29.5 pg (27.0-33.4); MEAN CORPUSCULAR HGB CONC 34.7 g/dL (32.0-36.0); MEAN CORPUSCULAR VOLUME 85 fl (80-97); PLATELET COUNT 237 10^3/uL (150-450); RED CELL DISTRIBUTION WIDTH 12.9 % (11.5-14.0)
[2019-01-06 06:43] LABS: ANION GAP 9 (5-19); BLOOD UREA NITROGEN 14 mg/dL (7-20); C-REACTIVE PROTEIN 29.8 mg/L (<10.0); CALCIUM 9.3 mg/dL (8.4-10.2); CARBON DIOXIDE 29 mmol/L (22-30); CHLORIDE 99 mmol/L (98-107); GLUCOSE 171 mg/dL (75-110); POTASSIUM 4.1 mmol/L (3.6-5.0); SODIUM 136.5 mmol/L (137-145)
[2019-01-06 07:26] LABS: ERYTHROCYTE SEDIMENTATION RATE 71 mm/hr (0-20)
[2019-01-06] MEDS: INSULIN LISPRO 100 UNIT/ML 3 ML VIAL SUBCUT SCH ×2 (08:54→13:03)
[2019-01-06] MEDS: DOCUSATE SODIUM 100 MG CAPSULE PO SCH (09:29)
[2019-01-06] MEDS: AMLODIPINE BESYLATE 10 MG TABLET PO SCH (09:31)
[2019-01-06] MEDS: LISINOPRIL 10 MG TABLET PO SCH (09:31)
[2019-01-06] MEDS: INSULIN GLARGINE,HUM.REC.ANLOG 300 UNIT/3 ML INSULN.PEN SUBCUT SCH (09:32)
[2019-01-06] MEDS: SODIUM HYPOCHLORITE 0.25% SOLN 473 ML BOTTLE TP SCH (09:32)
[2019-01-06 13:26] VITALS: BP 144/66
--- NOTE | 2019-01-06 16:11 | RADIOLOGY REPORT (SQ) ---
EXAM DESCRIPTION: PICC INSERTION; U/S GUIDE FOR VASCULAR ACCESS; FLUORO/CV PLACEMENT COMPLETED DATE/TIME: 01/06/2019 3:35 pm REASON FOR STUDY: 6 weeks of Ancef; 6 WEEKS OF ABX; IV ABX COMPARISON: None. FLUOROSCOPY TIME: 33 seconds 2 images saved to PACS. TECHNIQUE: Fluoroscopic and ultrasound guided PICC placement. LIMITATIONS: None. PROCEDURE: After written consent and assessment were obtained, the patient was brought into the fluo roscopy room and placed supine on the table. Ultrasound evaluation of potential access sites were per formed. After successfully identifying a patent left basilic vein, the left arm was prepped and drape d in a sterile fashion along with the ultrasound probe. The entry site was anesthetized with 1% lidoc vanessa. A 21 gauge 7 cm needle was advanced through the skin and into the basilic vein under live ultra sound guidance. An ultrasound image was saved to PACS confirming access site. A .018 guide wire was then inserted through the needle and into the venous system. The needle was then removed and an 11 b lade scalpel was used to make a 1cm skin incision. A 5 fr peel-away sheath was advanced over the wir e and into the venous system. A measurement was then made using the existing wire and live fluoroscop ic guidance. The wire was then removed and trimmed. The PICC was advanced through the peel-away sheat h and into the venous system. The peel-away sheath was removed and the catheter was adhered to the pa tients arm with a stat lock. The catheter was then aspirated and flushed and a sterile bandage was pl aced over the access site. A fluoroscopic spot image was saved to PACS confirming the catheter tip w ithin the superior vena cava. IMPRESSION: SUCCESSFUL PLACEMENT OF A 5 FR DUAL LUMEN 47 CM PICC IN THE LEFT BASILIC VEIN. COMMENT: Patient medication list reviewed: Yes- Quality ID# 130:Eligible professional attests to doc umenting in the medical record they obtained, updated, or reviewed the patient's current medications. . Quality ID 145: Final reports for procedures using fluoroscopy that document radiation exposure urmila dean, or exposure time and number of fluorographic images (if radiation exposure indices are not avail able) Quality ID #76: The patient was prepped and draped using maximum sterile barrier technique including cap, mask, sterile gown, sterile gloves, a large sterile sheet, hand hygiene, and 2% Chlorhexidine fo r cutaneous antisepsis. When ultrasound is used, sterile ultrasound techniques are followed requiring sterile gel and sterile probes. TECHNICAL DOCUMENTATION: JOB ID: [id number] [employer]- All Rights Reserved rev-03/08 Reading location - IP/workstation name: [email or web address]
[2019-01-06] MEDS ORDERED: NORMAL SALINE 10 ML SDV (AFTER EACH USE) IV PRN (16:30)
[2019-01-06] MEDS ORDERED: NORMAL SALINE 10 ML SDV (SCHEDULED) IV SCH (22:00)
--- NOTE | 2019-01-07 13:19 | PDOC DISCHARGE SUMMARY ---
General - Admit/Disc Date/PCP Admission Date/Primary Care Provider: 01/03/19 10:08 TG ARANDA MD Discharge Date: 01/06/19 - Discharge Diagnosis (1) Diabetic infection of left foot Is this a current diagnosis for this admission?: Yes Summary: Acute on chronic diabetic foot infection; followed by the Wound Care Clinic. Patient remains afebrile with nml WBC. Previous wound cultures w/ MSSA. Patient previously treated with p.o. clindamycin; wound rapidly worsened after completion of course. Blood cultures negative at 5 days. CRP trended down from 222 to 29 Sed Rate down from 92 to 71 Surgery was consulted; unfortunately the patient declined all surgical interventions despite daily education on the importance or debridement. Wound dressing changes were done with dakens wet-to-dry twice daily. Infectious Disease was consulted for antibiotic recommendations; appreciate Dr. Dominguez's assistance. Advises Ancef 2gm every 8 hours x 6 weeks and continued attempts to arrange for surgical debridement. She advises that if this course of antibiotics fails, there would NOT be recommendations for continued/prolonged course or escalation of therapy without also addressing wound surgically. PICC line has been place and Home Health nursing and infusion therapy has been arranged. Antibiotic end date is 02/14/19. At discharge, the patient was again educated that this treatment course has high probability of failure. It is explained that treatment failure will likely result in increased risk of higher-level amputation and/or development of life-t hreatening sepsis. He continues to decline surgical intervention and signed the declination of care form. The patient is discharged to home in stable condition. He is advised to follow up with his PCP within 1 week and with the Wound Care Clinic as scheduled on Sunday. He is instructed to return to the emergency room immediately for any concerning symptoms. (2) Diabetes mellitus Is this a current diagnosis for this admission?: Yes Summary: A1C 7.4% Patient is instructed to resume his home medication regiment. He is encouraged to continue lifestyle modifications to obtain tighter glucose control. (3) Hypertension Is this a current diagnosis for this admission?: Yes Summary: Continue home dose amlodipine. He has been started on lisinopril 10 mg daily for HTN and renal protective properties in DM patient. Dietary and lifestyle modifications are encouraged. (4) Morbid obesity with BMI of 45.0-49.9, adult Is this a current diagnosis for this admission?: Yes Summary: Dietary discretion and lifestyle modifications are advised. Patient has lost 8 lbs since previous admission (1 month ago); 50 lbs over last 6 months. He had the oportunity to meet with the hospice educator and registered dental assistant rda. - Additional Information Resuscitation Status: Full Code Discharge Diet: Diabetic Discharge Activity: Activity As Tolerated, Balance Activity w/Rest, Slowly Increase Activity Prescriptions: Lisinopril [Prinivil 10 mg Tablet] 10 mg PO DAILY #30 tablet Oxycodone HCl/Acetaminophen [Percocet 5-325 mg Tablet] 1 tab PO Q8HP PRN #10 tablet PRN Reason: Sodium Hypochlorite [Dakin's 0.25% Soln 473 ml] 1 applic TP Q12 #1 bottle Home Medications: Amlodipine Besylate [Norvasc 10 mg Tablet] 10 mg PO DAILY 12/18/18 Glipizide [Glucotrol] 10 mg PO DAILY 12/18/18 Insulin Regular, Human [Humulin R (Reg) Insulin 100 unit/mL] 15 unit SUBCUT TID 12/18/18 NPH, Human Insulin Isophane [Novolin N (NPH) Insulin 100 unit/mL] 40 unit SUBCUT BID 12/18/18 Acetaminophen [Tylenol 325 mg Tablet] 650 mg PO Q4HP PRN tablet 01/06/19 Lisinopril [Prinivil 10 mg Tablet] 10 mg PO DAILY #30 tablet 01/06/19 Oxycodone HCl/Acetaminophen [Percocet 5-325 mg Tablet] 1 tab PO Q8HP PRN #10 tablet 01/06/19 Sodium Hypochlorite [Dakin's 0.25% Soln 473 ml] 1 applic TP Q12 #1 bottle 01/06/19 History of Present Illness History of Present Illness: Per H&P by Dr. Christine: PATRICE MORGAN is a 58 year old male with a past medical history of hypertension, diabetes, diabetic neuropathy, morbid obesity, right BKA and dietary noncompliance. Patient presents with chronic, malodorous, packed ulcer at the base of the left metatarsal head after referral from the wound care center. He has had purulent discharge without significant pain but developed subjective fever prompting his referral to the emergency department. Patient's wound culture from 2 weeks ago grew community acquired MRSA sensitive to clindamycin. He completed an oral regiment 1 week ago with return of symptoms. In the emergency room he receives empiric antibiotics and referred to the hospitalist for admission as he refuses surgical debridement. Patient insists on diabetic lifestyle and diet compliance while unwrapping a vending machine cupcake. Physical Exam Vital Signs: Temp Pulse Resp BP Pulse Ox 98.1 F 84 17 144/66 H 96 01/06/19 13:25 01/06/19 13:25 01/06/19 13:25 01/06/19 13:25 01/06/19 13:25 Intake & Output 01/06/19 01/07/19 01/08/19 06:59 06:59 06:59 Intake Total 1419 50 Output Total 2100 Balance -681 50 Weight 139.8 kg General appearance: PRESENT: no acute distress, morbidly obese, well-developed, well-nourished Head exam: PRESENT: atraumatic, normocephalic Eye exam: PRESENT: conjunctiva pink, EOMI, PERRLA. ABSENT: scleral icterus Mouth exam: PRESENT: moist, tongue midline Respiratory exam: PRESENT: clear to auscultation flower. ABSENT: rales, rhonchi, wheezes Cardiovascular exam: PRESENT: RRR. ABSENT: diastolic murmur, rubs, systolic murmur Pulses: PRESENT: +1 pedal pulses bilateral - left Vascular exam: PRESENT: normal capillary refill GI/Abdominal exam: PRESENT: normal bowel sounds, soft. ABSENT: distended, guarding, mass, organolmegaly, rebound, tenderness Rectal exam: PRESENT: deferred Extremities exam: PRESENT: full ROM, pedal edema - trace to Left, other - Right BKA. ABSENT: calf tenderness, clubbing Musculoskeletal exam: PRESENT: ambulatory Neurological exam: PRESENT: alert, awake, oriented to person, oriented to place, oriented to time, oriented to situation, CN II-XII grossly intact. ABSENT: motor sensory deficit Psychiatric exam: PRESENT: appropriate affect, normal mood. ABSENT: homicidal ideation, suicidal ideation Skin exam: PRESENT: dry, erythema - Left latera/dorsal aspect of foot, warm, other - Left foot edema is slightly increased, erythema is now bright in color and spreds to the dorsal aspect of the foot. Open wound measuring ~1.5 sm round to lateral aspect of foot with subcutaneous/fatty appearing tissue protruding out. Plantar ulceration is 1 cm round; scant, foul smelling, drainage is present.. ABSENT: cyanosis, intact, rash Results Laboratory Results: 01/06/19 06:06 01/06/19 06:06 01/01/19 16:30 Blood Blood Culture - Final NO GROWTH IN 5 DAYS 01/01/19 16:16 Blood Blood Culture - Final NO GROWTH IN 5 DAYS Impressions: Chest X-Ray 01/01/19 16:04 IMPRESSION: NO ACUTE RADIOGRAPHIC FINDING IN THE CHEST. Foot X-Ray 01/01/19 16:08 IMPRESSION: SUPERFICIAL SOFT TISSUE ULCERATION ADJACENT TO THE 5TH TOE. NO RADIOPAQUE FOREIGN BODY. CHRONIC APPEARING DEFORMITY OF THE DISTAL 5TH METATARSAL. NO DEFINITIVE RADIOGRAPHIC FINDINGS OF OSTEOMYELITIS. Guidance Fluoroscopy 01/06/19 00:00 IMPRESSION: SUCCESSFUL PLACEMENT OF A 5 FR DUAL LUMEN 47 CM PICC IN THE LEFT BASILIC VEIN. Interventional Vascular Procedure 01/06/19 00:00 IMPRESSION: SUCCESSFUL PLACEMENT OF A 5 FR DUAL LUMEN 47 CM PICC IN THE LEFT BASILIC VEIN. PICC Line Insertion 01/06/19 00:00 IMPRESSION: SUCCESSFUL PLACEMENT OF A 5 FR DUAL LUMEN 47 CM PICC IN THE LEFT BA SILIC VEIN. Qualifiers - * PATIENT BEING DISCHARGED WITH ANY OF THE FOLLOWING DIAGNOSIS: No Plan Discharge Plan: The patient is discharged to home with home health nursing for continued IV Ancef infusions and wound care. Follow up with the primary care provider within 1 week. Keep follow up appointment with the Wound Care Clinic this week. Recommend weekly CBC and BMP. Recommend CRP and Sed Rate prior to conclusion of Ancef therapy on 02/14/19. Patient has been strongly advised of the importance of wound debridement; he is aware that there is a high probability of treatment failure resulting in higher level amputation and possible sepsis/ as a result of antibiotic failure. He is instructed to return to the emergency department immediately for any concerning symptoms. Time Spent: Greater than 30 Minutes
== END 2019-01-06 17:29 | disposition home health service (06) | DRG 638 ==
LOC: ER 15:01 → OBSVTOIN 21:57 → INTOOBSV 21:57 → EH 21:57 → 5 23:35 → OBSVTOIN 01-03 10:08
PROVIDERS: ADMIT Internal Medicine; ATTEND Internal Medicine
PROC: 3E0F73Z Introduction of Anti-inflammatory into Respiratory Tract, Via Natural or Artificial Opening (ICD-10-PCS; 2019-01-02)
PROC: 02HV33Z Insertion of Infusion Device into Superior Vena Cava, Percutaneous Approach (ICD-10-PCS; principal; 2019-01-06)
PROC: B548ZZA Ultrasonography of Superior Vena Cava, Guidance (ICD-10-PCS; 2019-01-06)
PROC: B518ZZA Fluoroscopy of Superior Vena Cava, Guidance (ICD-10-PCS; 2019-01-06)
DX: E11.621 Type 2 diabetes mellitus with foot ulcer (principal); Z68.42 Body mass index [BMI] 45.0-49.9, adult; L97.521 Non-pressure chronic ulcer of other part of left foot limited to breakdown of skin; B95.61 Methicillin susceptible Staphylococcus aureus infection as the cause of diseases classified elsewhere; I10 Essential (primary) hypertension; E66.01 Morbid (severe) obesity due to excess calories; E11.40 Type 2 diabetes mellitus with diabetic neuropathy, unspecified; Z79.899 Other long term (current) drug therapy; Z79.4 Long term (current) use of insulin; Z89.511 Acquired absence of right leg below knee; Z91.11 Patient's noncompliance with dietary regimen; Z86.14 Personal history of Methicillin resistant Staphylococcus aureus infection; Z79.82 Long term (current) use of aspirin; Z88.2 Allergy status to sulfonamides
CPT/HCPCS: 36415; 36569; 71045; 76937; 77001; 80048; 80053; 81001; 82803; 82962; 83036; 83605; 85025; 85027; 85610; 85652; 85730; 86140; 87040; 87086; 87088; 87186; 87804; 93005; 93010; 96374; 99285; G0378; J0690; J1642; J1644; J1815; J2270; J2543; J3370; J3490; J7030

== ENCOUNTER 2019-01-07 16:09 | Emergency (ER) | payer MEDICARE ==
[2019-01-07 16:18] VITALS: BP 166/74
[2019-01-07] MEDS ORDERED: CEFAZOLIN 2 GM/D5W RTU 2 GM/50 ML RTUPB IV ONE (17:32)
--- NOTE | 2019-01-07 17:39 | ER Document Report ---
ED Extremity Problem, Upper - General Chief Complaint: Arm Pain Stated Complaint: LEFT ARM PAIN Time Seen by Provider: 01/07/19 16:48 Primary Care Provider: TG ARANDA MD [Primary Care Provider] - Follow up as needed TRAVEL OUTSIDE OF THE [place] IN LAST 30 DAYS: No - HPI Notes: Patient is a 58-year-old male that presents to the emergency department for chief complaint of PICC line displacement. Patient states that he is on Ancef for left foot infection. He was discharged from the hospital yesterday with PICC line in place. He did receive his morning dose however while he was at work the line became displaced. He has not had his afternoon or evening dose of the Ancef. He denies any symptoms at this time including fevers chills increased pain and increased redness to his foot. Patient is requesting his PICC line be replaced. Past Medical History: Reviewed in chart Past Surgical History: Reviewed in chart Social History: Reviewed in chart Family History: Reviewed and noncontributory for presenting illness Allergies: Reviewed, see documented allergy list. REVIEW OF SYSTEMS: CONSTITUTIONAL : No fever No chills No diaphoresis No recent illness EENT: No vision changes No congestion No sore throat CARDIOVASCULAR: No chest pain No palpitations RESPIRATORY: No shortness of breath No cough No difficulty breathing GASTROINTESTINAL: No abdominal pain No nausea No vomiting No diarrhea GENITOURINARY: No dysuria No hematuria No difficulty urinating MUSCULOSKELETAL: No back pain No leg pain No arm pain SKIN: No rashes No lesions LYMPHATIC: No swollen, enlarged glands. NEUROLOGICAL: No lightheadedness No headache No weakness No paresthesias PSYCHIATRIC: No anxiety No depression PHYSICAL EXAMINATION: Vital signs reviewed, nursing noted reviewed. GENERAL: Well-appearing, well-nourished and in no acute distress. HEAD: Atraumatic, normocephalic. EYES: Eyes appear normal, extraocular movements intact, sclera anicteric, conjunctiva are normal. ENT: nares patent, oropharynx clear without exudates. Moist mucous membranes. NECK: Normal range of motion, supple without lymphadenopathy LUNGS: Breath sounds clear to auscultation bilaterally and equal. No wheezes rales or rhonchi. HEART: Regular rate and rhythm without murmurs ABDOMEN: Soft, nontender, normoactive bowel sounds. No rebound, guarding, or rigidity. No masses appreciated. EXTREMITIES: good range of motion, bilateral pretibial edema, symmetric. NEUROLOGICAL: No focal neurological deficits. Moves all extremities spontane ously Motor and sensory grossly intact on exam. PSYCH: Normal mood, normal affect. SKIN: Warm, Dry, normal turgor, no rashes or lesions noted on exposed skin - Related Data Allergies/Adverse Reactions: sulfamethoxazole [From Bactrim] Allergy (Mild, Verified 01/01/19 15:07) trimethoprim [From Bactrim] Allergy (Mild, Verified 01/01/19 15:07) Past Medical History - Social History Smoking Status: Unknown if Ever Smoked Chew tobacco use (# tins/day): No Frequency of alcohol use: None Drug Abuse: None Family History: Reviewed & Not Pertinent Patient has suicidal ideation: No Patient has homicidal ideation: No Endocrine Medical History: Reports: Hx Diabetes Mellitus Type 2 Renal/ Medical History: Denies: Hx Peritoneal Dialysis Musculoskeletal Medical History: Reports Hx Musculoskeletal Deformity Past Surgical History: Reports: Hx Orthopedic Surgery - Right BKA - Immunizations Immunizations up to date: Yes Hx Diphtheria, Pertussis, Tetanus Vaccination: Yes Physical Exam - Vital signs Vitals: Temp Pulse Resp BP Pulse Ox 98.4 F 92 16 166/74 H 98 01/07/19 16:16 01/07/19 16:16 01/07/19 16:16 01/07/19 16:16 01/07/19 16:16 Course - Re-evaluation Re-evalutation: 01/07/19 17:36 Vitals reviewed. Nursing notes reviewed. Patient will not let me examine his left foot. He is refusing to remove his shoe or sock so I cannot further evaluate his infection or wound area. I recommended patient be admitted to the hospital to receive his IV antibiotics and have PICC line replaced tomorrow. I asked if I prescribed him an oral antibiotic until he is able to get the PICC line replaced would he take it and he states he would not be able to get it filled because he does not have any money. Patient is refusing any further workup including blood draw and he is refusing to be admitted to the hospital. He states he has to get to work tomorrow or he will lose his job. PICC line cannot be placed in the hospital at this time. They will be back tomorrow morning. I did discuss this with the steam fitter supervisor in the radiology department. They do not believe that a referral from the emergency room will get him the outpatient PICC line placed. I was unable to make an appointment for him to get the PICC line placed. Radiology advised patient be seen at the wound center first thing tomorrow and have them refer him back for PICC line placement. Patient states he will walk into the wound care center around 1030 tomorrow morning when he gets off of work. I did tell him to return to the emergency room if at any point in time for further workup. He is in agreement with this plan of care. - Vital Signs Vital signs: Temp Pulse Resp BP Pulse Ox 98.4 F 92 16 166/74 H 98 01/07/19 16:16 01/07/19 16:16 01/07/19 16:16 01/07/19 16:16 01/07/19 16:16 Discharge - Discharge Clinical Impression: Left foot infection Condition: Stable Disposition: HOME, SELF-CARE Instructions: Foot or Leg Ulcer ([facility]) Additional Instructions: Please call the wound care center first thing tomorrow morning and ask for a referral for PICC line placement Try to call the radiology department and ask if they are able to put a PICC line in with my referral provided Return to the emergency room at any point in time for further management and treatment Forms: Follow-Up Radiology Testing Referrals: TG ARANDA MD [Primary Care Provider] - Follow up as needed
== END 2019-01-07 18:36 | disposition home or self-care (01) ==
LOC: ER 16:09
DX: L08.9 Local infection of the skin and subcutaneous tissue, unspecified (principal); E11.9 Type 2 diabetes mellitus without complications; Z88.1 Allergy status to other antibiotic agents
CPT/HCPCS: 99283; 96365; J0690

== ENCOUNTER 2019-01-08 16:56 | Emergency (ER) | payer MEDICARE ==
--- NOTE | 2019-01-08 17:18 | ER Document Report ---
ED Medical Screen (RME) - General Chief Complaint: Incision Problem Stated Complaint: PIC LINE COMPLICATIONS Time Seen by Provider: 01/08/19 17:07 Primary Care Provider: TG ARANDA MD [Primary Care Provider] - Follow up as needed Notes: 58-year-old male patient comes emergency room to have PICC line replaced. He apparently was here yesterday for the same thing and was discharged home with follow-up instructions. He just got out of the wound care clinic and return to the emergency room. I have greeted and performed a rapid initial assessment of this patient. A comprehensive ED assessment and evaluation of the patient, analysis of test results and completion of the medical decision making process will be conducted by additional ED providers. TRAVEL OUTSIDE OF THE [place] IN LAST 30 DAYS: No - Related Data Allergies/Adverse Reactions: sulfamethoxazole [From Bactrim] Allergy (Mild, Verified 01/01/19 15:07) trimethoprim [From Bactrim] Allergy (Mild, Verified 01/01/19 15:07) Past Medical History Endocrine Medical History: Reports: Hx Diabetes Mellitus Type 2 Renal/ Medical History: Denies: Hx Peritoneal Dialysis Musculoskeltal Medical History: Reports Hx Musculoskeletal Deformity Past Surgical History: Reports: Hx Orthopedic Surgery - Right BKA - Immunizations Immunizations up to date: Yes Hx Diphtheria, Pertussis, Tetanus Vaccination: Yes History of Influenza Vaccine for 07/2017 - 12/2017 Season: Yes Physical Exam - Vital signs Vitals: Temp Pulse Resp BP Pulse Ox 98.1 F 88 18 149/65 H 99 01/08/19 17:11 01/08/19 17:11 01/08/19 17:11 01/08/19 17:11 01/08/19 17:11 Course - Vital Signs Vital signs: Temp Pulse Resp BP Pulse Ox 98.1 F 88 18 149/65 H 99 01/08/19 17:11 01/08/19 17:11 01/08/19 17:11 01/08/19 17:11 01/08/19 17:11 Doctor's Discharge - Discharge Referrals: TG ARANDA MD [Primary Care Provider] - Follow up as needed
--- NOTE | 2019-01-08 17:27 | ER Document Report ---
ED General - General Chief Complaint: Incision Problem Stated Complaint: PIC LINE COMPLICATIONS Time Seen by Provider: 01/08/19 17:07 Primary Care Provider: TG ARANDA MD [Primary Care Provider] - Follow up as needed TRAVEL OUTSIDE OF THE [place] IN LAST 30 DAYS: No - HPI Notes: Patient is a 58-year-old male that presents to the emergency department for chief complaint of left foot wound and PICC line displacement. Patient presents back to the emergency room hoping to get his PICC line replaced. He had PICC line dislodgment yesterday while at work. He was in the ER yesterday and received a dose of Ancef prior to going home. Patient did not want his be admitted to the hospital yesterday but states he is ready to be admitted today. He did see wound management this afternoon who debrided his left foot wound and has redressed it. Patient is scheduled to be getting Ancef 2 g and his PICC line and has not had any since yesterday afternoon. He denies any new fever, chills, chest pain, shortness of breath, nausea, vomiting or diarrhea. Patient states the pain in his left foot is minimal currently. Past Medical History: Diabetes, hypertension Past Surgical History: Right BKA Social History: Reviewed in chart Family History: Reviewed and noncontributory for presenting illness Allergies: Reviewed, see documented allergy list. REVIEW OF SYSTEMS: CONSTITUTIONAL : No fever No chills No diaphoresis No recent illness EENT: No vision changes No congestion No sore throat CARDIOVASCULAR: No chest pain No palpitations RESPIRATORY: No shortness of breath No cough No difficulty breathing GASTROINTESTINAL: No abdominal pain No nausea No vomiting No diarrhea GENITOURINARY: No dysuria No hematuria No difficulty urinating MUSCULOSKELETAL: No back pain No leg pain No arm pain SKIN: No rashes Left foot wound LYMPHATIC: No swollen, enlarged glands. NEUROLOGICAL: No lightheadedness No headache No weakness No paresthesias PSYCHIATRIC: No anxiety No depression PHYSICAL EXAMINATION: Vital signs reviewed, nursing noted reviewed. GENERAL: Well-appearing, well-nourished and in no acute distress. HEAD: Atraumatic, normocephalic. EYES: Eyes appear normal, extraocular movements intact, sclera anicteric, conjunctiva are normal. ENT: nares patent, oropharynx clear without exudates. Moist mucous membranes. NECK: Normal range of motion, supple without lymphadenopathy LUNGS: Breath sounds clear to auscultation bilaterally and equal. No wheezes rales or rhonchi. HEART: Regular rate and rhythm without murmurs ABDOMEN: Soft, nontender, normoactive bowel sounds. No rebound, guarding, or rigidity. No masses appreciated. EXTREMITIES: Clean dry dressing on left foot, chronic venous stasis color ch anges to left lower extremity, nontender, good range of motion. NEUROLOGICAL: No focal neurological deficits. Moves all extremities spontaneously Motor and sensory grossly intact on exam. PSYCH: Normal mood, normal affect. SKIN: Warm, Dry, normal turgor, no rashes or lesions noted on exposed skin - Related Data Allergies/Adverse Reactions: sulfamethoxazole [From Bactrim] Allergy (Mild, Verified 01/01/19 15:07) trimethoprim [From Bactrim] Allergy (Mild, Verified 01/01/19 15:07) Past Medical History - Social History Smoking Status: Never Smoker Family History: Reviewed & Not Pertinent Patient has suicidal ideation: No Patient has homicidal ideation: No Endocrine Medical History: Reports: Hx Diabetes Mellitus Type 2 Renal/ Medical History: Denies: Hx Peritoneal Dialysis Musculoskeletal Medical History: Reports Hx Musculoskeletal Deformity Past Surgical History: Reports: Hx Orthopedic Surgery - Right BKA - Immunizations Immunizations up to date: Yes Hx Diphtheria, Pertussis, Tetanus Vaccination: Yes Physical Exam - Vital signs Vitals: Temp Pulse Resp BP Pulse Ox 98.1 F 88 18 149/65 H 99 01/08/19 17:11 01/08/19 17:11 01/08/19 17:11 01/08/19 17:11 01/08/19 17:11 Course - Re-evaluation Re-evalutation: 01/08/19 17:36 Patient is well-appearing and in no acute distress. He has a dressing that was placed by wound management at 330 this afternoon on his left foot. The dressing is clean, dry and intact. I did attempt to assist patient in obtaining a PICC line as an outpatient yesterday which he was unable to accomplish. PICC team is no longer present in the hospital today and will return tomorrow. I discussed patient's case with Dr. David who will admit him to the hospital for PICC line placement tomorrow. Patient given a dose of Ancef IV in the emergency room. - Vital Signs Vital signs: Temp Pulse Resp BP Pulse Ox 98.1 F 88 18 149/65 H 99 01/08/19 17:11 01/08/19 17:11 01/08/19 17:11 01/08/19 17:11 01/08/19 17:11 Discharge - Discharge Clinical Impression: Foot infection Condition: Stable Disposition: ADMITTED OBSERVATION Admitting Provider: Hospitalist Unit Admitted: Medical Floor Referrals: TG ARANDA MD [Primary Care Provider] - Follow up as needed
[2019-01-08] MEDS ORDERED: CEFAZOLIN 2 GM/D5W RTU 2 GM/50 ML RTUPB IV SCH (18:00)
[2019-01-08 20:38] VITALS: BP 152/74
== END 2019-01-08 20:38 | disposition admitted as inpatient to this hospital (09) ==
LOC: ER 16:56 → EH 17:53 → UNDOADMOB 17:53 → ER 20:38
DX: L08.9 Local infection of the skin and subcutaneous tissue, unspecified (principal); E11.9 Type 2 diabetes mellitus without complications; I10 Essential (primary) hypertension; Z98.890 Other specified postprocedural states; Z88.1 Allergy status to other antibiotic agents
CPT/HCPCS: 99284; 96365; J0690

== ENCOUNTER → 2019-01-09 | Day surgery (SDC) | payer MEDICARE ==
--- NOTE | 2019-01-09 15:41 | RADIOLOGY REPORT (SQ) ---
EXAM DESCRIPTION: PICC INSERTION; FLUORO/CV PLACEMENT; U/S GUIDE FOR VASCULAR ACCESS COMPLETED DATE/TIME: 01/09/2019 1:40 pm REASON FOR STUDY: LONG-TERM IV ANTIBIOTICS; IV ABX COMPARISON: Previous PICC 01/06/2019 was pulled out FLUOROSCOPY TIME: 18 seconds 1 ultrasound and 3 digital fluoroscopic images saved to PACS. TECHNIQUE: Fluoroscopic and ultrasound guided PICC placement. LIMITATIONS: None. PROCEDURE: After written consent and assessment were obtained, the patient was brought into the fluo roscopy room and placed supine on the table. Ultrasound evaluation of potential access sites were per formed. After successfully identifying a patent left basilic vein, the left arm was prepped and drape d in a sterile fashion along with the ultrasound probe. The entry site was anesthetized with 1% lidoc vanessa. A 21 gauge 7 cm needle was advanced through the skin and into the basilic vein under live ultra sound guidance. An ultrasound image was saved to PACS confirming access site. A .018 guide wire was then inserted through the needle and into the venous system. The needle was then removed and an 11 b lade scalpel was used to make a 1cm skin incision. A 5 fr peel-away sheath was advanced over the wir e and into the venous system. A measurement was then made using the existing wire and live fluoroscop ic guidance. The wire was then removed and trimmed. The PICC was advanced through the peel-away sheat h and into the venous system. The peel-away sheath was removed and the catheter was adhered to the pa tients arm with a stat lock. The catheter was then aspirated and flushed and a sterile bandage was pl aced over the access site. A fluoroscopic spot image was saved to PACS confirming the catheter tip w ithin the superior vena cava. IMPRESSION: SUCCESSFUL PLACEMENT OF A 5 FR DUAL LUMEN 47 CM PICC IN THE LEFT BASILIC VEIN. COMMENT: Patient medication list reviewed: Yes- Quality ID# 130:Eligible professional attests to doc umenting in the medical record they obtained, updated, or reviewed the patient's current medications. . Quality ID 145: Final reports for procedures using fluoroscopy that document radiation exposure urmila dean, or exposure time and number of fluorographic images (if radiation exposure indices are not avail able) Quality ID #76: The patient was prepped and draped using maximum sterile barrier technique including cap, mask, sterile gown, sterile gloves, a large sterile sheet, hand hygiene, and 2% Chlorhexidine fo r cutaneous antisepsis. When ultrasound is used, sterile ultrasound techniques are followed requiring sterile gel and sterile probes. TECHNICAL DOCUMENTATION: JOB ID: [id number] [employer]- All Rights Reserved rev-03/08 Reading location - IP/workstation name: [email or web address]
== END ==
LOC: RAD 12:38
PROVIDERS: ATTEND Emergency Medicine
DX: Z79.2 Long term (current) use of antibiotics (principal)
CPT/HCPCS: 36569; 77001; 76937; J1642

== ENCOUNTER 2019-01-14 13:19 | Inpatient (IN) | payer MEDICARE ==
[2019-01-14] MEDS ORDERED: MAGNESIUM HYDROXIDE SUSP 30 ML UDCUP PO PRN (15:19)
[2019-01-14] MEDS ORDERED: MAG HYDROX/AL HYDROX/SIMETH SUSP 30 ML UDCUP PO PRN (15:19)
[2019-01-14] MEDS ORDERED: IPRATROPIUM/ALBUTEROL 0.5-2.5 MG/3 ML AMPUL NEB PRN (15:19)
[2019-01-14] MEDS ORDERED: ONDANSETRON HCL INJ/PF 4 MG/2 ML SDV IV PRN (15:19)
[2019-01-14] MEDS ORDERED: GLUCAGON,HUMAN RECOMB 1 MG INJ IM PRN (15:26)
[2019-01-14] MEDS ORDERED: DEXTROSE 50%-WATER 25 GM/50 ML DISP.SYRIN IV PRN ×4 (15:26→20:23)
[2019-01-14] MEDS ORDERED: DEXTROSE 40% GEL 15 GM TUBE PO PRN ×4 (15:26→20:23)
--- NOTE | 2019-01-14 16:12 | RADIOLOGY REPORT (SQ) ---
EXAM DESCRIPTION: FOOT LEFT COMPLETE COMPLETED DATE/TIME: 01/14/2019 3:59 pm REASON FOR STUDY: Eval for osteo; acute/chronic DM foot wound COMPARISON: 01/01/2019 NUMBER OF VIEWS: Three views. TECHNIQUE: AP, lateral and oblique radiographic images acquired of the left foot. LIMITATIONS: None. FINDINGS: MINERALIZATION: Normal. BONES: No fracture or dislocation. Chronic deformity of the 5th digit. JOINTS: Stable in appearance. SOFT TISSUES: Subcutaneous gas has increased since prior study. The ulcer extends to the distal 5th metatarsal. No periostitis. OTHER: No other significant finding. IMPRESSION: Soft tissue ulcer which has penetrated to the level distal 5th metatarsal. No conventio nal radiographic evidence of osteomyelitis. TECHNICAL DOCUMENTATION: JOB ID: [id number] [employer]- All Rights Reserved Reading location - IP/workstation name: [email or web address]
[2019-01-14 16:16] LABS: ABSOLUTE BASOPHILS # (AUTO) 0.1 10^3/uL (0.0-0.2); ABSOLUTE EOSINOPHILS # (AUTO) 0.1 10^3/uL (0.0-0.6); ABSOLUTE LYMPHOCYTES (AUTO) 1.4 10^3/uL (0.5-4.7); ABSOLUTE MONOCYTES (AUTO) 0.4 10^3/uL (0.1-1.4); ABSOLUTE NEUT (AUTO) 4.4 10^3/uL (1.7-8.2); BASOPHILS % (AUTO) 0.9 % (0-2); HEMATOCRIT 34.4 % (37.9-51.0); HEMOGLOBIN 11.9 g/dL (13.5-17.0); LYMPHOCYTES % (AUTO) 22.4 % (13-45); MEAN CORPUSCULAR HEMOGLOBIN 29.7 pg (27.0-33.4); MEAN CORPUSCULAR HGB CONC 34.5 g/dL (32.0-36.0); MEAN CORPUSCULAR VOLUME 86 fl (80-97); MONOCYTES % (AUTO) 6.4 % (3-13); PLATELET COUNT 216 10^3/uL (150-450); RED BLOOD COUNT 3.99 10^6/uL (4.35-5.55); RED CELL DISTRIBUTION WIDTH 12.6 % (11.5-14.0); SEGMENTED NEUTROPHILS % (AUTO) 69.3 % (42-78); TOTAL CELLS COUNTED % (AUTO) 100 %; WHITE BLOOD COUNT 6.3 10^3/uL (4.0-10.5)
[2019-01-14 17:24] LABS: ERYTHROCYTE SEDIMENTATION RATE 76 mm/hr (0-20)
[2019-01-14] MEDS: INSULIN LISPRO 100 UNIT/ML 3 ML VIAL SUBCUT SCH ×2 (17:43→22:24)
--- NOTE | 2019-01-14 18:53 | PDOC H&P ---
History of Present Illness Admission Date/PCP: 01/14/19 13:19 TG ARANDA MD Patient complains of: worsening foot wound History of Present Illness: PATRICE MORGAN is a 58 year old male with a past medical history significant for hypertension, diabetes, diabetic neuropathy, morbid obesity, right BKA, and 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 The patient is seen upon arrival to the fifth floor. He reports that he did have difficulty with his PICC line being accidentally removed resulting in 2 missed doses of Ancef, but otherwise has been compliant with his outpatient anti biotic regiment and wound care follow-up. The patient reports that at his recent wound care visit, the provider was able to explore his wound "to the bone." Patient states that he understands that he has failed antibiotics exclusively and now requires a likely amputation of a portion of his foot. He is agreeable to evaluation by surgery and recommended surgical intervention. He does report increased pain of his foot, but denies incidences of fever, chills, body aches. He reports continued compliance with his dietary restrictions and insulin regiment. He has no other questions or concerns today. No concerns per nursing. Past Medical History Cardiac Medical History: Reports: Hyperlipidema, Hypertension Denies: Congestive Heart Failure, Coronary Artery Disease Pulmonary Medical History: Reports: None EENT Medical History: Reports: None Neurological Medical History: Reports: None Endocrine Medical History: Reports: Diabetes Mellitus Type 2, Obesity Renal/ Medical History: Reports: None Malignancy Medical History: Reports: None GI Medical History: Reports: Gastroesophageal Reflux Disease Musculoskeltal Medical History: Reports: None Skin Medical History: Reports: None Psychiatric Medical History: Denies: Alcohol Dependency, Depression, General Anxiety Disorder, Tobacco Dependency Hematology: Reports: Anemia Infectious Medical History: Reports: None Past Surgical History Past Surgical History: Reports: Orthopedic Surgery - Right BKA Social History Information Source: Patient Lives with: Spouse/Significant other Smoking Status: Former Smoker Frequency of Alcohol Use: None Hx Recreational Drug Use: No Drugs: None Hx Prescription Drug Abuse: No - Advance Directive Resuscitation Status: Full Code Family History Family History: Reviewed & Not Pertinent Parental Family History Reviewed: Yes Children Family History Reviewed: Yes Sibling(s) Family History Reviewed.: Yes Medication/Allergy Home Medications: Amlodipine Besylate [Norvasc 10 mg Tablet] 10 mg PO DAILY 01/14/19 Furosemide [Lasix 40 mg Tablet] 40 mg PO DAILY 01/14/19 Glipizide [Glucotrol 10 mg Tablet] 10 mg PO BID 01/14/19 Insulin Regular, Human [Novolin R (Reg) Insulin 100 unit/mL] 15 units SQ MEALS 01/14/19 Lisinopril [Zestril] 20 mg PO DAILY 01/14/19 Lovastatin 40 mg PO DAILY 01/14/19 Metformin HCl [Glucophage XR 500 mg Tablet] 500 mg PO BID 01/14/19 NPH, Human Insulin Isophane [Novolin N (NPH) Insulin 100 unit/mL] 40 unit SQ Q12 01/14/19 Allergies/Adverse Reactions: sulfamethoxazole [From Bactrim] Allergy (Mild, Verified 01/01/19 15:07) trimethoprim [From Bactrim] Allergy (Mild, Verified 01/01/19 15:07) Review of Systems Constitutional: ABSENT: chills, fever(s), headache(s), weight gain, weight loss Eyes: ABSENT: visual disturbances Ears: ABSENT: hearing changes Cardiovascular: ABSENT: chest pain, dyspnea on exertion, edema, orthropnea, palpitations Respiratory: ABSENT: cough, hemoptysis Gastrointestinal: ABSENT: abdominal pain, constipation, diarrhea, hematemesis, hematochezia, nausea, vomiting Genitourinary: ABSENT: dysuria, hematuria Musculoskeletal: ABSENT: joint swelling Integumentary: PRESENT: as per HPI, wounds. ABSENT: rash Neurological: ABSENT: abnormal gait, abnormal speech, confusion, dizziness, focal weakness, syncope Psychiatric: ABSENT: anxiety, depression, homidical ideation, suicidal ideation Endocrine: ABSENT: cold intolerance, heat intolerance, polydipsia, polyuria Hematologic/Lymphatic: ABSENT: easy bleeding, easy bruising Physical Exam Vital Signs: Temp Pulse Resp BP Pulse Ox 98.1 F 88 18 142/92 H 99 01/14/19 13:55 01/14/19 13:55 01/14/19 13:55 01/14/19 13:55 01/14/19 13:55 Intake & Output 01/13/19 01/14/19 01/15/19 06:59 06:59 06:59 Weight 264.4 kg General appearance: PRESENT: no acute distress, morbidly obese - None, well- developed, well-nourished Head exam: PRESENT: atraumatic, normocephalic Eye exam: PRESENT: conjunctiva pink, EOMI, PERRLA. ABSENT: scleral icterus Ear exam: PRESENT: normal external ear exam Mouth exam: PRESENT: moist, tongue midline Neck exam: ABSENT: carotid bruit, JVD, lymphadenopathy, thyromegaly Respiratory exam: PRESENT: clear to auscultation flower, symmetrical, unlabored. ABSENT: rales, rhonchi, wheezes Cardiovascular exam: PRESENT: RRR, +S1, +S2. ABSENT: diastolic murmur, rubs, systolic murmur Pulses: PRESENT: other - +1 pedal pulse (left) Vascular exam: PRESENT: normal capillary refill GI/Abdominal exam: PRESENT: normal bowel sounds, soft. ABSENT: distended, guarding, mass, organolmegaly, rebound, tenderness Rectal exam: PRESENT: deferred Extremities exam: PRESENT: full ROM, pedal edema - Trace left pedal edema. ABSENT: calf tenderness, clubbing Neurological exam: PRESENT: alert, awake, oriented to person, oriented to place, oriented to time, oriented to situation, CN II-XII grossly intact. ABSENT: motor sensory deficit Psychiatric exam: PRESENT: appropriate affect, normal mood. ABSENT: homicidal ideation, suicidal ideation Skin exam: PRESENT: dry, erythema - Left lateral/dorsal extending to midfoot, warm, other - Open wound measuring ~0.5 cm round to lateral aspect of foot with granulation tissue present. Plantar ulceration is 1 cm round with 1 cm macerated tissue border; copious foul-smelling serous drainage present. ABSENT: cyanosis, rash Results Laboratory Results: 01/14/19 15:57 01/14/19 15:57 WBC 6.3 RBC 3.99 L Hgb 11.9 L Hct 34.4 L MCV 86 MCH 29.7 MCHC 34.5 RDW 12.6 Plt Count 216 Seg Neutrophils % 69.3 Lymphocytes % 22.4 Monocytes % 6.4 Eosinophils % 1.0 Basophils % 0.9 Absolute Neutrophils 4.4 Absolute Lymphocytes 1.4 Absolute Monocytes 0.4 Absolute Eosinophils 0.1 Absolute Basophils 0.1 Impressions: Foot X-Ray 01/14/19 00:00 IMPRESSION: Soft tissue ulcer which has penetrated to the level distal 5th metatarsal. No conventional radiographic evidence of osteomyelitis. Assessment and Plan - Diagnosis (1) Diabetic infection of left foot Is this a current diagnosis for this admission?: Yes Plan: Acute on chronic diabetic foot infection; followed by the wound care clinic. During the last admission, the patient was offered multiple opportunities to meet with the surgical service to discuss debridement. Unfortunately, the patient continued to decline surgical intervention and opted to be discharged home on IV Ancef despite high probability of treatment failure. Infectious disease was consulted with recommendations for Ancef 2 g every 8 hours x 6 weeks. Patient is approximately 10 days into the recommended course of therapy and presents from his wound care clinic with worsening cellulitis and concern for development of osteomyelitis. WBC is normal. CRP is pending. Sed rate is 76; up slightly from 71 at discharge on 01/06/19. Previous wound cultures with MSSA. Blood cultures pending. The patient is admitted to the medical floor. We will continue IV Ancef 2 g every 8 hours. Surgery is consulted; appreciate their evaluation recommendations. Continue wet-to-dry dressing changes twice daily and as needed. (2) Diabetes mellitus Qualifiers: Diabetes mellitus type: type 2 Diabetes mellitus marine oil terminal superintendent insulin use: with marine oil terminal superintendent use Diabetes mellitus complication status: with skin complications Diabetes mellitus complication detail: with foot ulcer Qualified Code(s): E11.621 - Type 2 diabetes mellitus with foot ulcer; L97.509 - Non-pressure chronic ulcer of other part of unspecified foot with unspecified severity; Z79.4 - terminal operator (current) use of insulin Is this a current diagnosis for this admission?: Yes Plan: A1c 7.4%. He is placed on a consistent carb diet. Start low-dose Lantus 24 units twice daily (on NPH 40 units twice daily at home) to prevent hypoglycemia due to likely increase dietary compliance while admitted. Accu-Cheks before meals and at bedtime with Humalog for sliding scale coverage. Registered dietitian and music educator consulted. Hypoglycemia protocol is in place. (3) Hypertension Qualifiers: Hypertension type: essential hypertension Qualified Code(s): I10 - Essential (primary) hypertension Is this a current diagnosis for this admission?: Yes Plan: Low-sodium diet. Continue home dose amlodipine and lisinopril. (4) Morbid obesity with BMI of 45.0-49.9, adult Is this a current diagnosis for this admission?: Yes Plan: Dietary discretion and lifestyle modifications are advised. Registered dietitian and music educator consulted. - Time Time Spent with patient: 35 or more minutes Medications reviewed and adjusted accordingly: Yes Anticipated discharge: Home with Homehealth
[2019-01-14 19:03] LABS: ALANINE AMINOTRANSFERASE 26 U/L (21-72); ALBUMIN 3.6 g/dL (3.5-5.0); ALKALINE PHOSPHATASE 79 U/L (38-126); ANION GAP 9 (5-19); ASPARTATE AMINO TRANSFERASE 17 U/L (17-59); BILIRUBIN,DIRECT 0.2 mg/dL (0.0-0.4); BILIRUBIN,TOTAL 0.5 mg/dL (0.2-1.3); BLOOD UREA NITROGEN 16 mg/dL (7-20); C-REACTIVE PROTEIN 41.6 mg/L (<10.0); CALCIUM 9.4 mg/dL (8.4-10.2); CARBON DIOXIDE 32 mmol/L (22-30); CHLORIDE 95 mmol/L (98-107); GLUCOSE 269 mg/dL (75-110); POTASSIUM 4.5 mmol/L (3.6-5.0); SODIUM 135.8 mmol/L (137-145)
--- NOTE | 2019-01-14 20:22 | PDOC CONSULTATION ---
History of Present Illness Admission Date/PCP: 01/14/19 13:19 TG ARANDA MD Patient complains of: Nonhealing left foot ulcer History of Present Illness: PATRICE MORGAN is a 58 year old male diabetic with history of right below the knee amputation now with several week history of nonhealing left foot ulcer that had been treated with at home IV antibiotics for the last couple of weeks. He apparently had fevers and chills couple of weeks ago that improved with IV antibiotics. The left foot ulcer however has not healed and has had persistent purulent discharge. Patient was seen by his foot doctor and was noted with palpable bone at the base of the ulcer and was subsequently referred to the emergency department. Patient states that he otherwise feels reasonably well. He does have some sensation in his left foot and does have some pain. No fevers or chills in the last several days. Patient has long-standing chronic venous insufficiency of his left leg. He has a history of right below the knee amputation done several years ago and he has been ambulating well with his right prosthetic leg. His job demands mobility and prolonged standing. Past Medical History Cardiac Medical History: Reports: Hyperlipidema, Hypertension Denies: Congestive Heart Failure, Coronary Artery Disease Pulmonary Medical History: Reports: None EENT Medical History: Reports: None Neurological Medical History: Reports: None Endocrine Medical History: Reports: Diabetes Mellitus Type 2, Obesity Renal/ Medical History: Reports: None Malignancy Medical History: Reports: None GI Medical History: Reports: Gastroesophageal Reflux Disease Musculoskeltal Medical History: Reports: None Skin Medical History: Reports: None Psychiatric Medical History: Denies: Alcohol Dependency, Depression, General Anxiety Disorder, Tobacco Dependency Hematology: Reports: Anemia Infectious Medical History: Reports: None Past Surgical History Past Surgical History: Reports: Orthopedic Surgery - Right BKA, Other - Jaw surgery in the remote past Social History Lives with: Spouse/Significant other Smoking Status: Former Smoker Frequency of Alcohol Use: None Hx Recreational Drug Use: No Drugs: None Hx Prescription Drug Abuse: No - Advance Directive Resuscitation Status: Full Code Family History Family History: Reviewed & Not Pertinent Parental Family History Reviewed: No Children Family History Reviewed: No Sibling(s) Family History Reviewed.: No Medication/Allergy Home Medications: Amlodipine Besylate [Norvasc 10 mg Tablet] 10 mg PO DAILY 01/14/19 Furosemide [Lasix 40 mg Tablet] 40 mg PO DAILY 01/14/19 Glipizide [Glucotrol 10 mg Tablet] 10 mg PO BID 01/14/19 Insulin Regular, Human [Novolin R (Reg) Insulin 100 unit/mL] 15 units SQ MEALS 01/14/19 Lisinopril [Zestril] 20 mg PO DAILY 01/14/19 Lovastatin 40 mg PO DAILY 01/14/19 Metformin HCl [Glucophage XR 500 mg Tablet] 500 mg PO BID 01/14/19 NPH, Human Insulin Isophane [Novolin N (NPH) Insulin 100 unit/mL] 40 unit SQ Q12 01/14/19 Allergies/Adverse Reactions: sulfamethoxazole [From Bactrim] Allergy (Mild, Verified 01/01/19 15:07) trimethoprim [From Bactrim] Allergy (Mild, Verified 01/01/19 15:07) Physical Exam Vital Signs: Temp Pulse Resp BP Pulse Ox 98.1 F 88 18 142/92 H 99 01/14/19 13:55 01/14/19 13:55 01/14/19 13:55 01/14/19 13:55 01/14/19 13:55 Intake & Output 01/13/19 01/14/19 01/15/19 06:59 06:59 06:59 Weight 264.4 kg General appearance: PRESENT: no acute distress, cooperative Eye exam: PRESENT: conjunctiva pink Respiratory exam: PRESENT: clear to auscultation flower Cardiovascular exam: PRESENT: RRR GI/Abdominal exam: PRESENT: other - Soft, nondistended, nontender to palpation. Extremities exam: PRESENT: other - Right below the knee amputation. Left lower leg with chronic venous stasis changes with discoloration and thickening. Ulcer present at couple of centimeters proximal to the base of the fifth metatarsal with palpable bone with seropurulent discharge. Much smaller ulcer at the dorsum of the left lateral foot at the level of the plantar ulcer. Diffuse erythema in this area. No crepitus felt. Neurological exam: PRESENT: alert, awake Psychiatric exam: PRESENT: appropriate affect Skin exam: PRESENT: warm Results Laboratory Results: 01/14/19 15:57 01/14/19 15:57 01/14/19 01/14/19 15:57 15:57 WBC 6.3 RBC 3.99 L Hgb 11.9 L Hct 34.4 L MCV 86 MCH 29.7 MCHC 34.5 RDW 12.6 Plt Count 216 Seg Neutrophils % 69.3 Lymphocytes % 22.4 Monocytes % 6.4 Eosinophils % 1.0 Basophils % 0.9 Absolute Neutrophils 4.4 Absolute Lymphocytes 1.4 Absolute Monocytes 0.4 Absolute Eosinophils 0.1 Absolute Basophils 0.1 Sodium 135.8 L Potassium 4.5 Chloride 95 L Carbon Dioxide 32 H Anion Gap 9 BUN 16 Creatinine 0.81 Est GFR ( Amer) > 60 Est GFR (Non-Af Amer) > 60 Glucose 269 H Calcium 9.4 Total Bilirubin 0.5 AST 17 ALT 26 Alkaline Phosphatase 79 C-Reactive Protein 41.6 H Total Protein 8.0 Albumin 3.6 Impressions: Foot X-Ray 01/14/19 00:00 IMPRESSION: Soft tissue ulcer which has penetrated to the level distal 5th metatarsal. No conventional radiographic evidence of osteomyelitis. Assessment & Plan - Diagnosis (1) Osteomyelitis of left foot Is this a current diagnosis for this admission?: Yes Plan: Osteomyelitis of the left fifth metatarsal head. Patient would strongly benefit from fifth toe transmetatarsal amputation and foot debridement. I have discussed with the patient the nature of the surgery and the risk and benefits including poor wound healing, infection, bleeding, need for additional jaquelin geries, possible eventual limb loss. Patient understands and agrees to proceed. Patient ate dinner tonight. If anesthesia is willing to let me operate late tonight, will proceed with the surgery tonight. If not, we will have the procedure done in the morning.
[2019-01-14] MEDS ORDERED: GLUCAGON,HUMAN RECOMB 1 MG INJ SUBCUT PRN (20:23)
[2019-01-14] MEDS: OXYCODONE-ACETAMINOPHEN 5-325 MG TABLET PO PRN (20:58)
[2019-01-14] MEDS ORDERED: CEFAZOLIN 2 GM/D5W RTU 2 GM/50 ML RTUPB IV SCH (22:00)
[2019-01-14] MEDS: FAMOTIDINE 20 MG TABLET PO SCH (22:04)
[2019-01-14] MEDS: ATORVASTATIN CALCIUM 10 MG TABLET PO SCH (22:04)
[2019-01-14] MEDS: CEFAZOLIN SODIUM 2 GM in DEXTROSE 5%-WATER 100 ML IV SCH (22:23)
[2019-01-14] MEDS: HEPARIN SOD (PORCINE) 5,000 UNIT/ML 1 ML SYRINGE SUBCUT SCH (22:23)
[2019-01-14] MEDS: INSULIN GLARGINE,HUM.REC.ANLOG 1,000 UNIT/10 ML VIAL SUBCUT SCH (22:24)
[2019-01-15] MEDS: CEFAZOLIN SODIUM 2 GM in DEXTROSE 5%-WATER 100 ML IV SCH ×3 (05:35→22:33)
[2019-01-15] MEDS: HEPARIN SOD (PORCINE) 5,000 UNIT/ML 1 ML SYRINGE SUBCUT SCH ×3 (05:36→22:34)
[2019-01-15] MEDS: OXYCODONE-ACETAMINOPHEN 5-325 MG TABLET PO PRN ×3 (05:41→20:44)
[2019-01-15] MEDS: INSULIN LISPRO 100 UNIT/ML 3 ML VIAL SUBCUT SCH ×4 (08:42→22:32)
[2019-01-15] MEDS ORDERED: (PENDING PHARMACY ID) (Lovastatin [Lovastatin] 40 MG) PO SCH (10:00)
[2019-01-15] MEDS ORDERED: (PENDING PHARMACY ID) (Lisinopril [Zestril] 20 MG) PO SCH (10:00)
[2019-01-15] MEDS ORDERED: LIDOCAINE 1% INJ-PF (10 MG/ML) 30 ML SDV ONE (11:28)
[2019-01-15] MEDS ORDERED: BUPIVACAINE HCL 0.25 % INJ/PF (2.5 MG/1 ML) 30 ML VIAL ONE (11:28)
[2019-01-15] MEDS ORDERED: MIDAZOLAM 2 MG/2 ML INJ ONE (12:16)
[2019-01-15] MEDS ORDERED: FENTANYL CITRATE INJ/PF 100 MCG/2 ML AMPUL ONE (12:16)
[2019-01-15] MEDS ORDERED: MORPHINE SULFATE 10 MG/ML INJ ONE (12:16)
[2019-01-15] MEDS ORDERED: PROPOFOL INJ 200 MG/20 ML VIAL IV ONE (12:17)
[2019-01-15] MEDS: INSULIN GLARGINE,HUM.REC.ANLOG 1,000 UNIT/10 ML VIAL SUBCUT SCH ×2 (12:19→22:38)
[2019-01-15] MEDS ORDERED: MEPERIDINE HCL/PF INJ 25 MG/1 ML DISP.SYRIN IV PRN (12:44)
[2019-01-15] MEDS ORDERED: PROMETHAZINE HCL INJ 25 MG/1 ML VIAL IV PRN ×2 (12:44)
[2019-01-15] MEDS ORDERED: FENTANYL CITRATE INJ/PF 100 MCG/2 ML AMPUL IV PRN ×3 (12:44)
[2019-01-15] MEDS ORDERED: DIPHENHYDRAMINE HCL 50 MG/ML VIAL IV PRN (12:44)
[2019-01-15] MEDS ORDERED: MORPHINE SULFATE 10 MG/ML INJ IV PRN (12:44)
[2019-01-15] MEDS: LISINOPRIL 10 MG TABLET PO SCH (14:40)
[2019-01-15] MEDS: FUROSEMIDE 40 MG TABLET PO SCH (14:40)
[2019-01-15] MEDS: DOCUSATE SODIUM 100 MG CAPSULE PO SCH (14:40)
[2019-01-15] MEDS: AMLODIPINE BESYLATE 10 MG TABLET PO SCH (14:40)
[2019-01-15] MEDS: NORMAL SALINE 1000 ML 1,000 ML IV PRN (14:43)
[2019-01-15] MEDS: FAMOTIDINE 20 MG TABLET PO SCH ×2 (14:51→22:33)
--- NOTE | 2019-01-15 17:32 | PDOC PROGRESS REPORT ---
Subjective Progress Note for:: 01/15/19 Subjective:: PATRICE MORGAN is a 58 year old male with a past medical history significant for hypertension, diabetes, diabetic neuropathy, morbid obesity, right BKA, and 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 The patient is seen on morning rounds. He is found resting in bed comfortably on room air. His only complaint at present is being hungry due to his n.p.o. status; scheduled to have fifth left transmetatarsal amputation today by Dr. Staples. Patient denies fever, chills, chest pain, dyspnea, cough, abdominal pain, nausea vomiting and diarrhea. He has no other questions or concerns at this time. No concerns per nursing. Reason For Visit: CELLULITIS Physical Exam Vital Signs: Temp Pulse Resp BP Pulse Ox 97.8 F 84 18 150/78 H 95 01/15/19 15:13 01/15/19 15:34 01/15/19 15:34 01/15/19 15:13 01/15/19 15:34 Intake & Output 01/14/19 01/15/19 01/16/19 06:59 06:59 06:59 Intake Total 200 650 Output Total 750 25 Balance -550 625 Weight 118.7 kg General appearance: PRESENT: no acute distress, cooperative, obese, well-developed, well-nourished Head exam: PRESENT: atraumatic, normocephalic Eye exam: PRESENT: conjunctiva pink, EOMI, PERRLA. ABSENT: scleral icterus Mouth exam: PRESENT: moist, tongue midline Respiratory exam: PRESENT: clear to auscultation flower, symmetrical, unlabored. ABSENT: rales, rhonchi, wheezes Cardiovascular exam: PRESENT: RRR. ABSENT: diastolic murmur, rubs, systolic murmur Pulses: PRESENT: other - +1 pedal pulse on left; BKA on right Vascular exam: PRESENT: normal capillary refill GI/Abdominal exam: PRESENT: normal bowel sounds, soft. ABSENT: distended, guarding, mass, organolmegaly, rebound, tenderness Rectal exam: PRESENT: deferred Extremities exam: PRESENT: full ROM, pedal edema - Trace left pedal edema, other - BKA on right. ABSENT: calf tenderness, clubbing Neurological exam: PRESENT: alert, awake, oriented to person, oriented to place, oriented to time, oriented to situation, CN II-XII grossly intact. ABSENT: motor sensory deficit Psychiatric exam: PRESENT: appropriate affect, normal mood. ABSENT: homicidal ideation, suicidal ideation Skin exam: PRESENT: dry, warm, other - Chronic foot wound to left foot not visualized; clean dry dressing in place at present.. ABSENT: cyanosis, rash Results Laboratory Results: 01/14/19 15:57 01/14/19 15:57 01/14/19 15:57 Sodium 135.8 L Potassium 4.5 Chloride 95 L Carbon Dioxide 32 H Anion Gap 9 BUN 16 Creatinine 0.81 Est GFR ( Amer) > 60 Est GFR (Non-Af Amer) > 60 Glucose 269 H Calcium 9.4 Total Bilirubin 0.5 AST 17 ALT 26 Alkaline Phosphatase 79 C-Reactive Protein 41.6 H Total Protein 8.0 Albumin 3.6 Impressions: Foot X-Ray 01/14/19 00:00 IMPRESSION: Soft tissue ulcer which has penetrated to the level distal 5th metatarsal. No conventional radiographic evidence of osteomyelitis. Assessment and Plan - Diagnosis (1) Diabetic infection of left foot Is this a current diagnosis for this admission?: Yes Plan: Acute on chronic diabetic foot infection; followed by the wound care clinic. During the last admission, the patient was offered multiple opportunities to meet with the surgical service to discuss debridement. Unfortunately, the patient continued to decline surgical intervention and opted to be discharged home on IV Ancef despite high probability of treatment failure. Infectious disease was consulted with recommendations for Ancef 2 g every 8 hours x 6 weeks. Patient is approximately 10 days into the recommended course of therapy and presents from his wound care clinic with worsening cellulitis and concern for development of osteomyelitis. WBC is normal. CRP 222-> 29-> 41.6 Sed rate 92-> 71-> 76 Previous wound cultures with MSSA. Blood cultures negative at 24 hours. Wound culture (01/15/2019) pending The patient is admitted to the medical floor. We will continue IV Ancef 2 g every 8 hours. Surgery is consulted; appreciate their evaluation recommendations. Anticipate partial amputation of left fifth metatarsal today. Post surgical wound care per surgery's expertise. Analgesics as needed. (2) Diabetes mellitus Qualifiers: Diabetes mellitus type: type 2 Diabetes mellitus chiller hand insulin use: with chiller hand use Diabetes mellitus complication status: with skin complications Diabetes mellitus complication detail: with foot ulcer Qualified Code(s): E11.621 - Type 2 diabetes mellitus with foot ulcer; L97.509 - Non-pressure chronic ulcer of other part of unspecified foot with unspecified severity; Z79.4 - travel writer (current) use of insulin Is this a current diagnosis for this admission?: Yes Plan: A1c 7.4%. He is placed on a consistent carb diet. Continue low-dose Lantus 24 units twice daily (on NPH 40 units twice daily at home) to prevent hypoglycemia due to likely increase dietary compliance while admitted. Accu-Cheks before meals and at bedtime with Humalog for sliding scale coverage. Registered dietitian and gaming investigator consulted. Hypoglycemia protocol is in place. (3) Hypertension Qualifiers: Hypertension type: essential hypertension Qualified Code(s): I10 - Essential (primary) hypertension Is this a current diagnosis for this admission?: Yes Plan: Low-sodium diet. Continue home dose amlodipine and lisinopril. (4) Morbid obesity with BMI of 45.0-49.9, adult Is this a current diagnosis for this admission?: Yes Plan: Dietary discretion and lifestyle modifications are advised. Registered dietitian and gaming investigator consulted. - Time Time Spent with patient: 15-24 minutes Medications reviewed and adjusted accordingly: Yes Anticipated discharge: Home with Homehealth
--- NOTE | 2019-01-15 18:00 | PDOC PROGRESS REPORT ---
Subjective Progress Note for:: 01/15/19 Subjective:: This is a 58-year-old male with osteomyelitis of the left fifth toe and metatarsal. Previously he has refused surgical intervention, however he is now ready for surgery. Reason For Visit: CELLULITIS Physical Exam Vital Signs: Temp Pulse Resp BP Pulse Ox 97.8 F 86 17 140/83 H 98 01/15/19 17:29 01/15/19 17:29 01/15/19 17:29 01/15/19 17:29 01/15/19 17:29 Intake & Output 01/14/19 01/15/19 01/16/19 06:59 06:59 06:59 Intake Total 200 650 Output Total 750 25 Balance -550 625 Weight 118.7 kg General appearance: PRESENT: no acute distress, cooperative Head exam: PRESENT: atraumatic, normocephalic Eye exam: PRESENT: EOMI, PERRLA Neck exam: ABSENT: meningismus, tenderness, thyromegaly, tracheal deviation Respiratory exam: PRESENT: unlabored. ABSENT: chest wall tenderness, tachypnea, wheezes GI/Abdominal exam: PRESENT: soft. ABSENT: distended, tenderness Rectal exam: PRESENT: deferred Extremities exam: PRESENT: other - BKA on the right. Left foot with ulcer on the plantar surface at the fifth metatarsal head. There is purulent material emanating from the wound. Neurological exam: PRESENT: alert, awake, oriented to person, oriented to place, oriented to time, oriented to situation Psychiatric exam: ABSENT: agitated, anxious, depressed Focused psych exam: ABSENT: delusional Skin exam: ABSENT: cyanosis, erythema, jaundice Results Laboratory Results: 01/14/19 15:57 01/14/19 15:57 01/14/19 15:57 Sodium 135.8 L Potassium 4.5 Chloride 95 L Carbon Dioxide 32 H Anion Gap 9 BUN 16 Creatinine 0.81 Est GFR ( Amer) > 60 Est GFR (Non-Af Amer) > 60 Glucose 269 H Calcium 9.4 Total Bilirubin 0.5 AST 17 ALT 26 Alkaline Phosphatase 79 C-Reactive Protein 41.6 H Total Protein 8.0 Albumin 3.6 Impressions: Foot X-Ray 01/14/19 00:00 IMPRESSION: Soft tissue ulcer which has penetrated to the level distal 5th metatarsal. No conventional radiographic evidence of osteomyelitis. Assessment & Plan - Diagnosis (1) Osteomyelitis of left foot Qualifiers: Osteomyelitis type: chronic, with draining sinus Qualified Code(s): M86.472 - Chronic osteomyelitis with draining sinus, left ankle and foot Is this a current diagnosis for this admission?: Yes (2) Diabetic infection of left foot Is this a current diagnosis for this admission?: Yes - Plan Summary Plan Summary: This is a 58-year-old male with a severe diabetic foot infection. He has o steomyelitis of the left fifth toe and left fifth metatarsal head. I recommended amputation of left fifth toe with excision of the fifth metatarsal in an effort to remove any infection. The patient has agreed to this. Risks/benefits discussed, informed consent obtained, and all questions answered.
--- NOTE | 2019-01-15 18:06 | Operative Report ---
Nonrecallable Operative Report DATE OF SURGERY: 01/15/19 PREOPERATIVE DIAGNOSIS: Osteomyelitis of the left foot POSTOPERATIVE DIAGNOSIS: Same OPERATION: Amputation of the left fifth toe and metatarsal. SURGEON: RODRIGUEZ FONTENOT ANESTHESIA: LMAC TISSUE REMOVED OR ALTERED: Left fifth toe and metatarsal COMPLICATIONS: None apparent ESTIMATED BLOOD LOSS: 20 cc PROCEDURE: Drains/implants: Betadine soaked Kerlix. Procedure in detail: After informed consent was obtained, the patient was brought to the operating room and laid in the supine position. The area of the left foot was prepped and draped in a normal sterile fashion. An incision was created around the left fifth toe and extended down to the ulcer beneath the metatarsal of the left fifth toe. The incision was then carried laterally to expose the length of the fifth metatarsal. The toe and metatarsal were then freed from the surrounding soft tissues. The fifth toe and fifth metatarsal were removed from the patient completely. Next, attention was turned to debridement of any infected or nonviable tissue. Skin, fatty soft tissue, and muscle were debrided sharply and excisionally with a 10 blade scalpel. After all nonviable tissue was removed, hemostasis was achieved. This was done using suture ligations of 3-0 Vicryl as well as electrocautery. Once this was completed, the proximal soft tissues were closed using 2-0 Vicryl suture in [id number] fashion. The area of the forefoot was left open and packed with a Betadine soaked Kerlix. The foot was then wrapped with Kerlix and Coban. The procedure was at this time concluded. All sponge, instrument, and needle counts were correct x2. Condition: Fair.
[2019-01-15] MEDS: ATORVASTATIN CALCIUM 10 MG TABLET PO SCH (22:33)
[2019-01-16] MEDS: NORMAL SALINE 1000 ML 1,000 ML IV PRN (03:50)
[2019-01-16] MEDS: HEPARIN SOD (PORCINE) 5,000 UNIT/ML 1 ML SYRINGE SUBCUT SCH ×3 (06:10→23:23)
[2019-01-16] MEDS: CEFAZOLIN SODIUM 2 GM in DEXTROSE 5%-WATER 100 ML IV SCH ×3 (06:10→23:25)
[2019-01-16 06:58] LABS: HEMATOCRIT 35.1 % (37.9-51.0); MEAN CORPUSCULAR HEMOGLOBIN 29.5 pg (27.0-33.4); MEAN CORPUSCULAR HGB CONC 34.2 g/dL (32.0-36.0); MEAN CORPUSCULAR VOLUME 86 fl (80-97); PLATELET COUNT 213 10^3/uL (150-450); RED BLOOD COUNT 4.08 10^6/uL (4.35-5.55); RED CELL DISTRIBUTION WIDTH 12.6 % (11.5-14.0); WHITE BLOOD COUNT 6.8 10^3/uL (4.0-10.5)
[2019-01-16] MEDS: OXYCODONE-ACETAMINOPHEN 5-325 MG TABLET PO PRN ×3 (07:00→23:42)
[2019-01-16 07:18] LABS: ANION GAP 11 (5-19); BLOOD UREA NITROGEN 12 mg/dL (7-20); CALCIUM 8.5 mg/dL (8.4-10.2); CARBON DIOXIDE 26 mmol/L (22-30); CHLORIDE 96 mmol/L (98-107); GLUCOSE 202 mg/dL (75-110); POTASSIUM 3.9 mmol/L (3.6-5.0)
[2019-01-16] MEDS: LISINOPRIL 10 MG TABLET PO SCH (12:30)
[2019-01-16] MEDS: DOCUSATE SODIUM 100 MG CAPSULE PO SCH (12:31)
[2019-01-16] MEDS: FAMOTIDINE 20 MG TABLET PO SCH ×2 (12:31→23:24)
[2019-01-16] MEDS: AMLODIPINE BESYLATE 10 MG TABLET PO SCH (12:31)
[2019-01-16] MEDS: INSULIN GLARGINE,HUM.REC.ANLOG 1,000 UNIT/10 ML VIAL SUBCUT SCH ×2 (12:31→23:24)
[2019-01-16] MEDS: FUROSEMIDE 40 MG TABLET PO SCH (12:31)
[2019-01-16] MEDS: INSULIN LISPRO 100 UNIT/ML 3 ML VIAL SUBCUT SCH ×4 (12:32→23:24)
--- NOTE | 2019-01-16 12:48 | PDOC PROGRESS REPORT ---
Subjective Progress Note for:: 01/16/19 Subjective:: No complaints. Reason For Visit: CELLULITIS Physical Exam Vital Signs: Temp Pulse Resp BP Pulse Ox 98.8 F 92 18 147/68 H 95 01/16/19 11:12 01/16/19 11:12 01/16/19 11:12 01/16/19 11:12 01/16/19 11:12 Intake & Output 01/15/19 01/16/19 01/17/19 06:59 06:59 06:59 Intake Total 200 2696 Output Total 750 525 Balance -550 2171 Weight 118.7 kg 114 kg 114 kg Extremities exam: PRESENT: other - Left foot wound appears very clean. No necrotic tissue. No bleeding. No purulent drainage. The packing was all re moved and repacked. Results Laboratory Results: 01/16/19 06:15 01/16/19 06:15 01/16/19 01/16/19 06:15 06:15 WBC 6.8 RBC 4.08 L Hgb 12.0 L Hct 35.1 L MCV 86 MCH 29.5 MCHC 34.2 RDW 12.6 Plt Count 213 Sodium 133.0 L Potassium 3.9 Chloride 96 L Carbon Dioxide 26 Anion Gap 11 BUN 12 Creatinine 0.68 Est GFR ( Amer) > 60 Est GFR (Non-Af Amer) > 60 Glucose 202 H Calcium 8.5 Impressions: Foot X-Ray 01/14/19 00:00 IMPRESSION: Soft tissue ulcer which has penetrated to the level distal 5th metatarsal. No conventional radiographic evidence of osteomyelitis. Assessment & Plan - Diagnosis (1) Osteomyelitis of left foot Qualifiers: Osteomyelitis type: chronic, with draining sinus Qualified Code(s): M86.472 - Chronic osteomyelitis with draining sinus, left ankle and foot Is this a current diagnosis for this admission?: Yes Plan: Status post fifth toe and metatarsal amputation. Wound looks good. Will start normal saline wet-to-dry dressing changes twice daily. We will switch over to a wound VAC in the next few days. Physical therapy started. Will increase weightbearing status in the next few days.
--- NOTE | 2019-01-16 17:56 | PDOC PROGRESS REPORT ---
Subjective Progress Note for:: 01/16/19 Subjective:: PATRICE MORGAN is a 58 year old male with a past medical history significant for hypertension, diabetes, diabetic neuropathy, morbid obesity, right BKA, and 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 The patient is seen on morning rounds. He is found resting in bed comfortably on room air. He reports slight increase in left foot pain following amputation of his fifth metatarsal yesterday. He reports that he was hesitant to work with physical therapy today due to fear of causing the wound to bleed. He was encouraged to continue mobility with physical therapy's assistance as his jaquelin hernan had recommended toe touching. He does ask to have his diet liberalized; otherwise, he has no new complaints or concerns. Patient denies fever, chills, chest pain, dyspnea, cough, abdominal pain, nausea vomiting and diarrhea. No concerns per nursing. Reason For Visit: CELLULITIS Physical Exam Vital Signs: Temp Pulse Resp BP Pulse Ox 99.0 F 127 H 21 H 123/68 96 01/16/19 15:30 01/16/19 15:30 01/16/19 15:30 01/16/19 15:30 01/16/19 15:30 Intake & Output 01/15/19 01/16/19 01/17/19 06:59 06:59 06:59 Intake Total 200 2696 502 Output Total 829 062 8124 Balance -550 2171 -898 Weight 118.7 kg 114 kg 114 kg General appearance: PRESENT: no acute distress, cooperative, obese, well- developed, well-nourished Head exam: PRESENT: atraumatic, normocephalic Eye exam: PRESENT: conjunctiva pink, EOMI, PERRLA. ABSENT: scleral icterus Mouth exam: PRESENT: moist, tongue midline Neck exam: ABSENT: carotid bruit, JVD, lymphadenopathy, thyromegaly Respiratory exam: PRESENT: clear to auscultation flower, symmetrical, unlabored. ABSENT: rales, rhonchi, wheezes Cardiovascular exam: PRESENT: RRR, +S1, +S2. ABSENT: diastolic murmur, rubs, systolic murmur Vascular exam: PRESENT: normal capillary refill GI/Abdominal exam: PRESENT: normal bowel sounds, soft. ABSENT: distended, guarding, mass, organolmegaly, rebound, tenderness Rectal exam: PRESENT: deferred Extremities exam: PRESENT: full ROM, other - Right BKA. ABSENT: calf tenderness, clubbing, pedal edema Neurological exam: PRESENT: alert, awake, oriented to person, oriented to place, oriented to time, oriented to situation, CN II-XII grossly intact. ABSENT: motor sensory deficit Psychiatric exam: PRESENT: appropriate affect, normal mood. ABSENT: homicidal ideation, suicidal ideation Skin exam: PRESENT: dry, warm, other - Left fifth toe and metatarsal amputation; surgical dressing in place (when not directly visualized) no erythema, edema, warmth noted to left lower extremity.. ABSENT: cyanosis, rash Results Laboratory Results: 01/16/19 06:15 01/16/19 06:15 01/16/19 01/16/19 06:15 06:15 WBC 6.8 RBC 4.08 L Hgb 12.0 L Hct 35.1 L MCV 86 MCH 29.5 MCHC 34.2 RDW 12.6 Plt Count 213 Sodium 133.0 L Potassium 3.9 Chloride 96 L Carbon Dioxide 26 Anion Gap 11 BUN 12 Creatinine 0.68 Est GFR ( Amer) > 60 Est GFR (Non-Af Amer) > 60 Glucose 202 H Calcium 8.5 Impressions: Foot X-Ray 01/14/19 00:00 IMPRESSION: Soft tissue ulcer which has penetrated to the level distal 5th me tatarsal. No conventional radiographic evidence of osteomyelitis. Assessment and Plan - Diagnosis (1) Diabetic infection of left foot Is this a current diagnosis for this admission?: Yes Plan: Now postop day #1 left fifth toe and metatarsal amputation. Acute on chronic diabetic foot infection; followed by the wound care clinic. During the last admission, the patient was offered multiple opportunities to meet with the surgical service to discuss debridement. Unfortunately, the brit ent continued to decline surgical intervention and opted to be discharged home on IV Ancef despite high probability of treatment failure. Infectious disease was consulted with recommendations for Ancef 2 g every 8 hours x 6 weeks. Patient is approximately 10 days into the recommended course of therapy and presents from his wound care clinic with worsening cellulitis and concern for development of osteomyelitis. WBC remains normal. CRP 222-> 29-> 41.6 Sed rate 92-> 71-> 76 Previous wound cultures with MSSA. Blood cultures (set obtained from PICC line) growing gram-positive cocci. Wound culture (01/15/2019) growing gram-negative rods The patient is admitted to the medical floor. We will continue IV Ancef 2 g every 8 hours. Surgery is consulted; appreciate their evaluation recommendations. Anticipate partial amputation of left fifth metatarsal today. Post surgical wound care per surgery's expertise. Physical therapy is consulted. Analgesics as needed. (2) Diabetes mellitus Qualifiers: Diabetes mellitus type: type 2 Diabetes mellitus mcc insulin use: with powersaw supervisor use Diabetes mellitus complication status: with skin complications Diabetes mellitus complication detail: with foot ulcer Qualified Code(s): E11.621 - Type 2 diabetes mellitus with foot ulcer; L97.509 - Non-pressure chronic ulcer of other part of unspecified foot with unspecified severity; Z79.4 - [employer] (current) use of insulin Is this a current diagnosis for this admission?: Yes Plan: A1c 7.4%. He is placed on a consistent carb diet. Continue low-dose Lantus 24 units twice daily (on NPH 40 units twice daily at home) to prevent hypoglycemia due to likely increase dietary compliance while admitted. Accu-Cheks before meals and at bedtime with Humalog for sliding scale coverage. Registered dietitian and chemical educator consulted. Hypoglycemia protocol is in place. (3) Hypertension Qualifiers: Hypertension type: essential hypertension Qualified Code(s): I10 - Essential (primary) hypertension Is this a current diagnosis for this admission?: Yes Plan: Low-sodium diet. Continue home dose amlodipine and lisinopril. (4) Morbid obesity with BMI of 45.0-49.9, adult Is this a current diagnosis for this admission?: Yes Plan: Dietary discretion and lifestyle modifications are advised. Registered dietitian and chemical educator consulted. (5) Hyponatremia Is this a current diagnosis for this admission?: Yes Plan: Patient was admitted with sodium of 135; has trended down slightly to 133. He was noted to have mild hyponatremia during his last visit as well. This is likely related to his low sodium diet and Lasix use. At this time, sodium is not clinically significant. However, we will continue to trend with daily chemistries. (6) Gram-positive bacteremia Is this a current diagnosis for this admission?: Yes Plan: Blood culture 01/14/2019 (PICC line) growing gram-positive cocci in cluster. Blood culture 01/14/2019 (peripheral draw) is negative at 48 hours. Previous wound cultures were positive for MSSA. Patient is appropriately on Ancef. Current wound culture is positive for gram-negative rods. We will repeat blood cultures today from both PICC and peripheral site. Continue antibiotics as above; will adjust as cultures and sensitivities result. - Time Time Spent with patient: 15-24 minutes Medications reviewed and adjusted accordingly: Yes Anticipated discharge: Home with Homehealth - Inpatient Certification Based on my medical assessment, after consideration of the patient's comorbidities, presenting symptoms, or acuity I expect that the services needed warrant INPATIENT care.: Yes I certify that my determination is in accordance with my understanding of Medicare's requirements for reasonable and necessary INPATIENT services [42 CFR 412.3e].: Yes Medical Necessity: Need for IV Antibiotics, Need for Surgery, Risk of Diagnosis Which Will Require Inpatient Eval/Care/Monitoring
[2019-01-16] MEDS: ACETAMINOPHEN 325 MG TABLET PO PRN (18:34)
[2019-01-16] MEDS: ATORVASTATIN CALCIUM 10 MG TABLET PO SCH (23:24)
[2019-01-17 05:01] LABS: HEMATOCRIT 34.5 % (37.9-51.0); HEMOGLOBIN 11.8 g/dL (13.5-17.0); MEAN CORPUSCULAR HEMOGLOBIN 29.3 pg (27.0-33.4); MEAN CORPUSCULAR HGB CONC 34.3 g/dL (32.0-36.0); MEAN CORPUSCULAR VOLUME 86 fl (80-97); PLATELET COUNT 229 10^3/uL (150-450); RED BLOOD COUNT 4.04 10^6/uL (4.35-5.55); RED CELL DISTRIBUTION WIDTH 12.6 % (11.5-14.0); WHITE BLOOD COUNT 7.1 10^3/uL (4.0-10.5)
[2019-01-17] MEDS: HEPARIN SOD (PORCINE) 5,000 UNIT/ML 1 ML SYRINGE SUBCUT SCH ×3 (05:13→21:23)
[2019-01-17] MEDS: CEFAZOLIN SODIUM 2 GM in DEXTROSE 5%-WATER 100 ML IV SCH ×3 (05:14→21:22)
[2019-01-17 05:20] LABS: ANION GAP 9 (5-19); BLOOD UREA NITROGEN 11 mg/dL (7-20); CALCIUM 8.8 mg/dL (8.4-10.2); CARBON DIOXIDE 29 mmol/L (22-30); CHLORIDE 99 mmol/L (98-107); GLUCOSE 180 mg/dL (75-110); POTASSIUM 3.7 mmol/L (3.6-5.0); SODIUM 136.9 mmol/L (137-145)
[2019-01-17] MEDS: NORMAL SALINE 1000 ML 1,000 ML IV PRN (06:13)
[2019-01-17] MEDS: ACETAMINOPHEN 325 MG TABLET PO PRN (06:20)
[2019-01-17] MEDS: INSULIN LISPRO 100 UNIT/ML 3 ML VIAL SUBCUT SCH ×4 (08:22→21:47)
[2019-01-17] MEDS: AMLODIPINE BESYLATE 10 MG TABLET PO SCH (09:15)
[2019-01-17] MEDS: DOCUSATE SODIUM 100 MG CAPSULE PO SCH (09:15)
[2019-01-17] MEDS: FUROSEMIDE 40 MG TABLET PO SCH (09:15)
[2019-01-17] MEDS: LISINOPRIL 10 MG TABLET PO SCH (09:15)
[2019-01-17] MEDS: FAMOTIDINE 20 MG TABLET PO SCH ×2 (09:16→21:23)
[2019-01-17] MEDS: INSULIN GLARGINE,HUM.REC.ANLOG 1,000 UNIT/10 ML VIAL SUBCUT SCH ×2 (09:21→21:47)
[2019-01-17] MEDS ORDERED: NORMAL SALINE INJ/PF 0.9% 10 ML SDV IV PRN (10:43)
--- NOTE | 2019-01-17 17:27 | PDOC PROGRESS REPORT ---
Subjective Progress Note for:: 01/17/19 Subjective:: comfortable Reason For Visit: CELLULITIS Physical Exam Vital Signs: Temp Pulse Resp BP Pulse Ox 98.1 F 99 20 154/69 H 98 01/17/19 15:55 01/17/19 15:55 01/17/19 15:55 01/17/19 15:55 01/17/19 15:55 Intake & Output 01/16/19 01/17/19 01/18/19 06:59 06:59 06:59 Intake Total 2696 2488 Output Total 525 2280 Balance 2171 208 Weight 114 kg 117.8 kg General appearance: PRESENT: no acute distress Head exam: PRESENT: normocephalic Eye exam: PRESENT: PERRLA Mouth exam: PRESENT: moist Neck exam: PRESENT: full ROM Respiratory exam: PRESENT: clear to auscultation flower Cardiovascular exam: PRESENT: RRR Pulses: PRESENT: +2 pedal pulses bilateral GI/Abdominal exam: PRESENT: soft Rectal exam: PRESENT: deferred Musculoskeletal exam: PRESENT: full ROM Neurological exam: PRESENT: alert, awake, oriented to person, oriented to place, oriented to time Psychiatric exam: PRESENT: agitated Results Laboratory Results: 01/17/19 04:30 01/17/19 04:30 01/17/19 01/17/19 04:30 04:30 WBC 7.1 RBC 4.04 L Hgb 11.8 L Hct 34.5 L MCV 86 MCH 29.3 MCHC 34.3 RDW 12.6 Plt Count 229 Sodium 136.9 L Potassium 3.7 Chloride 99 Carbon Dioxide 29 Anion Gap 9 BUN 11 Creatinine 0.63 Est GFR ( Amer) > 60 Est GFR (Non-Af Amer) > 60 Glucose 180 H Calcium 8.8 01/14/19 15:57 Blood Blood Culture - Final Staphylococcus Epidermidis Impressions: Foot X-Ray 01/14/19 00:00 IMPRESSION: Soft tissue ulcer which has penetrated to the level distal 5th metatarsal. No conventional radiographic evidence of osteomyelitis. Assessment & Plan - Plan Summary Plan Summary: pt wants to go home currently left foot sp 5th metatarsal amp for gangrene wound base still dusky despite palp strong dp pulse cannot express any pus, but mild cellulitis on dorsal forefoot, improved per pt recommend, cont iv abx dressing changes
[2019-01-17] MEDS: OXYCODONE-ACETAMINOPHEN 5-325 MG TABLET PO PRN (17:40)
--- NOTE | 2019-01-17 17:51 | PDOC PROGRESS REPORT ---
Subjective Progress Note for:: 01/17/19 Subjective:: PATRICE MORGAN is a 58 year old male with a past medical history significant for hypertension, diabetes, diabetic neuropathy, morbid obesity, right BKA, and 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 The patient is seen on morning rounds. He is found up in the recliner, resting comfortably on room air. He reports slight increase in left foot pain following amputation of his fifth metatarsal yesterday. He is still concerned about weight bearing to that foot. Advised he would see PT again today. Patient denies fever, chills, chest pain, dyspnea, cough, abdominal pain, nausea vomiting and diarrhea. He denies any other questions or concerns at this time. No concerns per nursing. Reason For Visit: CELLULITIS Physical Exam Vital Signs: Temp Pulse Resp BP Pulse Ox 98.1 F 99 20 154/69 H 98 01/17/19 15:55 01/17/19 15:55 01/17/19 15:55 01/17/19 15:55 01/17/19 15:55 Intake & Output 01/16/19 01/17/19 01/18/19 06:59 06:59 06:59 Intake Total 2696 2488 Output Total 525 2280 Balance 2171 208 Weight 114 kg 117.8 kg General appearance: PRESENT: no acute distress, cooperative, obese, well- developed, well-nourished Head exam: PRESENT: atraumatic, normocephalic Eye exam: PRESENT: conjunctiva pink, EOMI, PERRLA. ABSENT: scleral icterus Mouth exam: PRESENT: moist, tongue midline Neck exam: ABSENT: carotid bruit, JVD, lymphadenopathy, thyromegaly Respiratory exam: PRESENT: clear to auscultation flower, symmetrical, unlabored. ABSENT: rales, rhonchi, wheezes Cardiovascular exam: PRESENT: RRR. ABSENT: diastolic murmur, rubs, systolic murmur Vascular exam: PRESENT: normal capillary refill GI/Abdominal exam: PRESENT: normal bowel sounds, soft. ABSENT: distended, guarding, mass, organolmegaly, rebound, tenderness Rectal exam: PRESENT: deferred Extremities exam: PRESENT: full ROM. ABSENT: calf tenderness, clubbing, pedal edema Neurological exam: PRESENT: alert, awake, oriented to person, oriented to place, oriented to time, oriented to situation, CN II-XII grossly intact. ABSENT: motor sensory deficit Psychiatric exam: PRESENT: appropriate affect, normal mood. ABSENT: homicidal ideation, suicidal ideation Skin exam: PRESENT: dry, warm, other - s/p left fifth metatarsal amputation; naik rgical wound not visualized, dressing in place with old serosanguineous drainage.. ABSENT: cyanosis, rash Results Laboratory Results: 01/17/19 04:30 01/17/19 04:30 01/17/19 01/17/19 04:30 04:30 WBC 7.1 RBC 4.04 L Hgb 11.8 L Hct 34.5 L MCV 86 MCH 29.3 MCHC 34.3 RDW 12.6 Plt Count 229 Sodium 136.9 L Potassium 3.7 Chloride 99 Carbon Dioxide 29 Anion Gap 9 BUN 11 Creatinine 0.63 Est GFR ( Amer) > 60 Est GFR (Non-Af Amer) > 60 Glucose 180 H Calcium 8.8 01/14/19 15:57 Blood Blood Culture - Final Staphylococcus Epidermidis Impressions: Foot X-Ray 01/14/19 00:00 IMPRESSION: Soft tissue ulcer which has penetrated to the level distal 5th metatarsal. No conventional radiographic evidence of osteomyelitis. Assessment and Plan - Diagnosis (1) Diabetic infection of left foot Is this a current diagnosis for this admission?: Yes Plan: Now postop day #2 left fifth toe and metatarsal amputation. Acute on chronic diabetic foot infection; followed by the wound care clinic. During the last admission, the patient was offered multiple opportunities to meet with the surgical service to discuss debridement. Unfortunately, the patient continued to decline surgical intervention and opted to be discharged home on IV Ancef despite high probability of treatment failure. Infectious disease was consulted with recommendations for Ancef 2 g every 8 hours x 6 weeks. Patient is approximately 10 days into the recommended course of therapy and presents from his wound care clinic with worsening cellulitis and concern for development of osteomyelitis. WBC remains normal. CRP 222-> 29-> 41.6 Sed rate 92-> 71-> 76 Previous wound cultures with MSSA. Blood cultures (set obtained from PICC line) grew staph epidermidis. Have repeated blood cultures to confirm contaminant. Wound culture (01/15/2019) Pseudomonas and gram-positive cocci. The patient is admitted to the medical floor. We will continue IV Ancef 2 g every 8 hours. Surgery is consulted; appreciate their evaluation recommendations. Post surgical wound care per surgery's expertise. Physical therapy is consulted. Analgesics as needed. (2) Diabetes mellitus Qualifiers: Diabetes mellitus type: type 2 Diabetes mellitus ocean [employer] intermediary insulin use: with fpc use Diabetes mellitus complication status: with skin com plications Diabetes mellitus complication detail: with foot ulcer Qualified Code(s): E11.621 - Type 2 diabetes mellitus with foot ulcer; L97.509 - Non- pressure chronic ulcer of other part of unspecified foot with unspecified severity; Z79.4 - jail (current) use of insulin Is this a current diagnosis for this admission?: Yes Plan: A1c 7.4%. He is placed on a consistent carb diet. Continue low-dose Lantus 26 units twice daily (on NPH 40 units twice daily at home) to prevent hypoglycemia due to likely increase dietary compliance while admitted. Accu-Cheks before meals and at bedtime with Humalog for sliding scale coverage. Registered dietitian and art educator consulted. Hypoglycemia protocol is in place. (3) Hypertension Qualifiers: Hypertension type: essential hypertension Qualified Code(s): I10 - Essential (primary) hypertension Is this a current diagnosis for this admission?: Yes Plan: Low-sodium diet. Continue home dose amlodipine and lisinopril. (4) Morbid obesity with BMI of 45.0-49.9, adult Is this a current diagnosis for this admission?: Yes Plan: Dietary discretion and lifestyle modifications are advised. Registered dietitian and art educator consulted. (5) Hyponatremia Is this a current diagnosis for this admission?: Yes Plan: Improved; Na 135-> 133-> 136.9 He was noted to have mild hyponatremia during his last visit as well. This is likely related to his low sodium diet and Lasix use. At this time, sodium is not clinically significant. However, we will continue to trend with daily chemistries. (6) Gram-positive bacteremia Is this a current diagnosis for this admission?: Yes Plan: Blood culture 01/14/2019 (PICC line) grew staph epi. Blood culture 01/14/2019 (peripheral draw) is negative at 72 hours. Previous wound cultures were positive for MSSA. Patient is appropriately on Ancef. Current wound culture is positive for pseudomonas and gram positive cocci. Repeat blood cultures to confirm staph epi as contaminant Continue antibiotics as above; will adjust as cultures and sensitivities result. - Time Time Spent with patient: 15-24 minutes Medications reviewed and adjusted accordingly: Yes Anticipated discharge: Home with Homehealth
[2019-01-17] MEDS: CLONAZEPAM 1 MG TABLET PO PRN (21:23)
[2019-01-17] MEDS: ATORVASTATIN CALCIUM 10 MG TABLET PO SCH (21:23)
[2019-01-17] MEDS: TRAZODONE HCL 50 MG TABLET PO SCH (21:23)
[2019-01-17] MEDS: NORMAL SALINE INJ/PF 0.9% 10 ML SDV IV SCH (21:24)
[2019-01-17] MEDS: ZOLPIDEM TARTRATE 5 MG TABLET PO PRN (23:03)
[2019-01-18] MEDS: OXYCODONE-ACETAMINOPHEN 5-325 MG TABLET PO PRN ×3 (05:48→22:06)
[2019-01-18] MEDS: NORMAL SALINE 1000 ML 1,000 ML IV PRN ×2 (05:49→22:10)
[2019-01-18] MEDS: HEPARIN SOD (PORCINE) 5,000 UNIT/ML 1 ML SYRINGE SUBCUT SCH ×3 (05:49→22:07)
[2019-01-18] MEDS: CEFAZOLIN SODIUM 2 GM in DEXTROSE 5%-WATER 100 ML IV SCH ×3 (05:49→22:07)
[2019-01-18] MEDS: INSULIN LISPRO 100 UNIT/ML 3 ML VIAL SUBCUT SCH ×4 (08:24→22:06)
[2019-01-18] MEDS: LISINOPRIL 10 MG TABLET PO SCH (09:42)
[2019-01-18] MEDS: AMLODIPINE BESYLATE 10 MG TABLET PO SCH (09:42)
[2019-01-18] MEDS: FAMOTIDINE 20 MG TABLET PO SCH ×2 (09:42→22:08)
[2019-01-18] MEDS: FUROSEMIDE 40 MG TABLET PO SCH (09:42)
[2019-01-18] MEDS: DOCUSATE SODIUM 100 MG CAPSULE PO SCH (09:43)
[2019-01-18] MEDS: NORMAL SALINE INJ/PF 0.9% 10 ML SDV IV SCH ×2 (09:43→22:05)
[2019-01-18] MEDS: INSULIN GLARGINE,HUM.REC.ANLOG 1,000 UNIT/10 ML VIAL SUBCUT SCH ×2 (09:44→22:07)
--- NOTE | 2019-01-18 12:13 | PDOC PROGRESS REPORT ---
Subjective Progress Note for:: 01/18/19 Reason For Visit: CELLULITIS Physical Exam Vital Signs: Temp Pulse Resp BP Pulse Ox 98.0 F 86 20 134/62 H 91 L 01/18/19 07:30 01/18/19 07:30 01/18/19 07:30 01/18/19 07:30 01/18/19 07:30 Intake & Output 01/17/19 01/18/19 01/19/19 06:59 06:59 06:59 Intake Total 2488 2843 Output Total 2280 1220 Balance 208 -557 Weight 117.8 kg 117 kg Results Laboratory Results: 01/17/19 04:30 01/17/19 04:30 01/14/19 15:57 Blood Blood Culture - Final Staphylococcus Epidermidis Impressions: Foot X-Ray 01/14/19 00:00 IMPRESSION: Soft tissue ulcer which has penetrated to the level distal 5th metatarsal. No conventional radiographic evidence of osteomyelitis. Assessment & Plan - Diagnosis (1) Osteomyelitis of left foot Qualifiers: Osteomyelitis type: chronic, with draining sinus Qualified Code(s): M86.472 - Chronic osteomyelitis with draining sinus, left ankle and foot Is this a current diagnosis for this admission?: Yes (2) Diabetic infection of left foot Is this a current diagnosis for this admission?: Yes - Plan Summary Plan Summary: This is a 58-year-old male status post amputation of the left fifth toe and fifth metatarsal. Patient is doing reasonably well today. His wound appears clean, without signs of purulence or active infection. There is some granulation tissue present. I have discussed treatment options with the patient. He believes the wound VAC may be beneficial, and I agree. I will place a wound VAC on his foot today. I will ask social services designee to arrange for a home wound VAC. Plan for discharge after home wound VAC is arranged.
--- NOTE | 2019-01-18 13:00 | PDOC PROGRESS REPORT ---
Subjective Progress Note for:: 01/18/19 Subjective:: PATRICE MORGAN is a 58 year old male with a past medical history significant for hypertension, diabetes, diabetic neuropathy, morbid obesity, right BKA, and 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 The patient is seen on morning rounds. He is found resting in bed comfortably on room air. He reports that he is feeling well today; pain is well controlled and he slept better overnight. He tells me that surgery is arranging for a wound vac. Patient denies fever, chills, chest pain, dyspnea, cough, abdominal pain, nausea vomiting and diarrhea. He denies any other questions or concerns at this time. No concerns per nursing. Reason For Visit: CELLULITIS Physical Exam Vital Signs: Temp Pulse Resp BP Pulse Ox 98.0 F 86 20 134/62 H 91 L 01/18/19 07:30 01/18/19 07:30 01/18/19 07:30 01/18/19 07:30 01/18/19 07:30 Intake & Output 01/17/19 01/18/19 01/19/19 06:59 06:59 06:59 Intake Total 2488 2843 Output Total 2280 3400 Balance 208 -557 Weight 117.8 kg 117 kg General appearance: PRESENT: no acute distress, morbidly obese, well-developed, well-nourished Head exam: PRESENT: atraumatic, normocephalic Eye exam: PRESENT: conjunctiva pink, EOMI, PERRLA. ABSENT: scleral icterus Mouth exam: PRESENT: moist, tongue midline Respiratory exam: PRESENT: clear to auscultation flower, symmetrical, unlabored. ABSENT: rales, rhonchi, wheezes Cardiovascular exam: PRESENT: RRR. ABSENT: diastolic murmur, rubs, systolic murmur Vascular exam: PRESENT: normal capillary refill Rectal exam: PRESENT: deferred Extremities exam: PRESENT: full ROM, other - BKA right. ABSENT: calf tenderness, clubbing, pedal edema Neurological exam: PRESENT: alert, awake, oriented to person, oriented to place, oriented to time, oriented to situation, CN II-XII grossly intact. ABSENT: motor sensory deficit Psychiatric exam: PRESENT: appropriate affect, normal mood. ABSENT: homicidal ideation, suicidal ideation Skin exam: PRESENT: dry, warm, other - Dressing to left foot in place; no erythema or edema noted from mid-foot proximally. Otherwise, did not visualize foot/wound.. ABSENT: cyanosis, rash Results Laboratory Results: 01/17/19 04:30 01/17/19 04:30 01/15/19 13:08 Foot - Left Gram Stain - Final 01/15/19 13:08 Foot - Left Wound Culture - Final Pseudomonas Aeruginosa Enterococcus Faecalis(Group D) No Anaerobic Organisms 01/14/19 15:57 Blood Blood Culture - Final Staphylococcus Epidermidis Impressions: Foot X-Ray 01/14/19 00:00 IMPRESSION: Soft tissue ulcer which has penetrated to the level distal 5th metatarsal. No conventional radiographic evidence of osteomyelitis. Assessment and Plan - Diagnosis (1) Diabetic infection of left foot Is this a current diagnosis for this admission?: Yes Plan: Now postop day #3 left fifth toe and metatarsal amputation. Acute on chronic diabetic foot infection; followed by the wound care clinic. During the last admission, the patient was offered multiple opportunities to meet with the surgical service to discuss debridement. Unfortunately, the patient continued to decline surgical intervention and opted to be discharged home on IV Ancef despite high probability of treatment failure. Infectious disease was consulted with recommendations for Ancef 2 g every 8 hours x 6 weeks. Patient is approximately 10 days into the recommended course of therapy and presents from his wound care clinic with worsening cellulitis and concern for development of osteomyelitis. WBC remains normal. CRP 222-> 29-> 41.6 Sed rate 92-> 71-> 76 Previous wound cultures with MSSA. Blood cultures (set obtained from PICC line) grew staph epidermidis. Repeat are negative at 24 hours; likely contaminant. Wound culture (01/15/2019) Pseudomonas and enterococcus The patient is admitted to the medical floor. We will continue IV Ancef 2 g every 8 hours. Will discuss w/ Surgery; likely will not require continued antibiotics at discharge. Surgery is consulted; appreciate their evaluation recommendations. Post surgical wound care per surgery's expertise. Physical therapy is consulted. Analgesics as needed. (2) Diabetes mellitus Qualifiers: Diabetes mellitus type: type 2 Diabetes mellitus local intermodal truck driver insulin use: with local intermodal truck driver use Diabetes mellitus complication status: with skin complications Diabetes mellitus complication detail: with foot ulcer Qualified Code(s): E11.621 - Type 2 diabetes mellitus with foot ulcer; L97.509 - Non-pressure chronic ulcer of other part of unspecified foot with unspecified severity; Z79.4 - watermelon inspector (current) use of insulin Is this a current diagnosis for this admission?: Yes Plan: A1c 7.4%. He is placed on a consistent carb diet. Continue low-dose Lantus 26 units twice daily (on NPH 40 units twice daily at home) to prevent hypoglycemia due to likely increase dietary compliance while admitted. Accu-Cheks before meals and at bedtime with Humalog for sliding scale coverage. Registered dietitian and special educator consulted. Hypoglycemia protocol is in place. (3) Hypertension Qualifiers: Hypertension type: essential hypertension Qualified Code(s): I10 - Essential (primary) hypertension Is this a current diagnosis for this admission?: Yes Plan: Acceptable blood pressures. Low-sodium diet. Continue home dose amlodipine and lisinopril. (4) Morbid obesity with BMI of 45.0-49.9, adult Is this a current diagnosis for this admission?: Yes Plan: Dietary discretion and lifestyle modifications are advised. Registered dietitian and special educator consulted. (5) Hyponatremia Is this a current diagnosis for this admission?: Yes Plan: Improved; Na 135-> 133-> 136.9 He was noted to have mild hyponatremia during his last visit as well. This is likely related to his low sodium diet and Lasix use. At this time, sodium is not clinically significant. However, we will continue to trend with daily chemistries. (6) Gram-positive bacteremia Is this a current diagnosis for this admission?: Yes Plan: Blood culture 01/14/2019 (PICC line) grew staph epi. Blood culture 01/14/2019 (peripheral draw) is negative at 72 hours. Previous wound cultures were positive for MSSA. Patient is appropriately on Ancef. Current wound culture is positive for pseudomonas and gram positive cocci. Repeat blood cultures are negative at 24 hours; staph epi was likely a contaminant Continue antibiotics as above; will adjust as cultures and sensitivities result. - Time Time Spent with patient: 15-24 minutes Medications reviewed and adjusted accordingly: Yes Anticipated discharge: Home with Homehealth Within: within 48 hours
--- NOTE | 2019-01-18 16:18 | Operative Report ---
Nonrecallable Operative Report DATE OF SURGERY: 01/18/19 PREOPERATIVE DIAGNOSIS: Diabetic foot, large wound to the left lateral foot POSTOPERATIVE DIAGNOSIS: Same as above OPERATION: Placement of negative pressure wound management device. Wound measures 6.5 cm x 3.5 cm x 1.5 cm. SURGEON: RODRIGUEZ FONTENOT ANESTHESIA: Other - None TISSUE REMOVED OR ALTERED: None COMPLICATIONS: None apparent ESTIMATED BLOOD LOSS: None PROCEDURE: Drains/implants: Wound VAC to left foot. Procedure in detail: Patient was laid in the supine position in the hospital room. The left lateral foot was cleaned. The wound was inspected. The wound measured 6.5 x 3.5 x 1.5 cm. The wound bed was healthy with exposed muscle and tendon. There was no necrotic tissue or purulence. The wound VAC sponge was cut to an appropriate size. The sponge was placed into the wound and the occlusive dressing was placed over top of the wound. The wound VAC was then placed to 75 mmHg suction. Good seal was achieved. Procedure at this time was concluded. All sponge, instrument, and needle counts were correct x2. Condition: Fair.
[2019-01-18] MEDS: TRAZODONE HCL 50 MG TABLET PO SCH (22:08)
[2019-01-18] MEDS: ATORVASTATIN CALCIUM 10 MG TABLET PO SCH (22:08)
[2019-01-18] MEDS: ZOLPIDEM TARTRATE 5 MG TABLET PO PRN (23:57)
[2019-01-19] MEDS: HEPARIN SOD (PORCINE) 5,000 UNIT/ML 1 ML SYRINGE SUBCUT SCH ×3 (06:10→23:09)
[2019-01-19] MEDS: CEFAZOLIN SODIUM 2 GM in DEXTROSE 5%-WATER 100 ML IV SCH ×3 (06:13→23:05)
[2019-01-19] MEDS: INSULIN LISPRO 100 UNIT/ML 3 ML VIAL SUBCUT SCH ×4 (08:43→23:10)
[2019-01-19] MEDS: DOCUSATE SODIUM 100 MG CAPSULE PO SCH (09:52)
[2019-01-19] MEDS: FAMOTIDINE 20 MG TABLET PO SCH ×2 (09:53→23:11)
[2019-01-19] MEDS: LISINOPRIL 10 MG TABLET PO SCH (09:53)
[2019-01-19] MEDS: FUROSEMIDE 40 MG TABLET PO SCH (09:53)
[2019-01-19] MEDS: NORMAL SALINE INJ/PF 0.9% 10 ML SDV IV SCH ×2 (09:53→23:11)
[2019-01-19] MEDS: AMLODIPINE BESYLATE 10 MG TABLET PO SCH (09:54)
[2019-01-19] MEDS: INSULIN GLARGINE,HUM.REC.ANLOG 1,000 UNIT/10 ML VIAL SUBCUT SCH ×2 (09:56→23:09)
--- NOTE | 2019-01-19 11:27 | PDOC PROGRESS REPORT ---
Subjective Progress Note for:: 01/19/19 Reason For Visit: CELLULITIS Physical Exam Vital Signs: Temp Pulse Resp BP Pulse Ox 98.1 F 86 18 175/67 H 97 01/19/19 09:17 01/19/19 09:17 01/19/19 09:17 01/19/19 09:17 01/19/19 09:17 Intake & Output 01/18/19 01/19/19 01/20/19 06:59 06:59 06:59 Intake Total 2843 2333 236 Output Total 3400 2900 Balance -557 -567 236 Weight 117 kg 117.2 kg Results Laboratory Results: 01/17/19 04:30 01/17/19 04:30 01/15/19 13:08 Foot - Left Gram Stain - Final 01/15/19 13:08 Foot - Left Wound Culture - Final Pseudomonas Aeruginosa Enterococcus Faecalis(Group D) No Anaerobic Organisms Impressions: Foot X-Ray 01/14/19 00:00 IMPRESSION: Soft tissue ulcer which has penetrated to the level distal 5th metatarsal. No conventional radiographic evidence of osteomyelitis. Assessment & Plan - Diagnosis (1) Osteomyelitis of left foot Qualifiers: Osteomyelitis type: chronic, with draining sinus Qualified Code(s): M86.472 - Chronic osteomyelitis with draining sinus, left ankle and foot Is this a current diagnosis for this admission?: Yes (2) Diabetic infection of left foot Is this a current diagnosis for this admission?: Yes - Plan Summary Plan Summary: Is a 58-year-old male status post amputation of his left fifth toe and metatarsal. The patient reports he is doing well. A wound VAC was placed yesterday, which appears to be working appropriately. We are awaiting home wound VAC approval. Plan for discharge once home wound VAC is arranged. He should continue to follow up with the wound care clinic after discharge. Continue antibiotics as previously scheduled. I will see the patient again on an as-needed basis. Please renotify with questions or concerns.
[2019-01-19] MEDS: OXYCODONE-ACETAMINOPHEN 5-325 MG TABLET PO PRN ×2 (11:48→20:23)
--- NOTE | 2019-01-19 14:07 | PDOC PROGRESS REPORT ---
Subjective Progress Note for:: 01/19/19 Subjective:: PATRICE MORGAN is a 58 year old male with a past medical history significant for hypertension, diabetes, diabetic neuropathy, morbid obesity, right BKA, and 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 The patient is seen on morning rounds. He is found resting in bed comfortably on room air. He reports that he is feeling well today; pain is well controlled and he slept better overnight. Wound VAC is in place; looking forward to receiving home wound VAC and discharged home soon as possible. We discussed surgery's recommendations to continue Ancef as previously arranged. Patient tells me that he understands that he will need to be available to meet with a home health nursing for wound care. Reports that this should not be difficult as he will not be able to work while he has the wound VAC and so other than his upcoming move to a new residence, there should be no scheduling di fficulties. Patient denies fever, chills, chest pain, dyspnea, cough, abdominal pain, nausea vomiting and diarrhea. He denies any other questions or concerns at this time. No concerns per nursing. Reason For Visit: CELLULITIS Physical Exam Vital Signs: Temp Pulse Resp BP Pulse Ox 98.0 F 87 16 145/65 H 92 01/19/19 10:56 01/19/19 10:56 01/19/19 10:56 01/19/19 10:56 01/19/19 10:56 Intake & Output 01/18/19 01/19/19 01/20/19 06:59 06:59 06:59 Intake Total 2843 2333 236 Output Total 3400 2900 Balance -557 -567 236 Weight 117 kg 117.2 kg General appearance: PRESENT: no acute distress, cooperative, obese, well- developed, well-nourished Head exam: PRESENT: atraumatic, normocephalic Eye exam: PRESENT: conjunctiva pink, EOMI, PERRLA. ABSENT: scleral icterus Mouth exam: PRESENT: moist, tongue midline Neck exam: ABSENT: carotid bruit, JVD, lymphadenopathy, thyromegaly Respiratory exam: PRESENT: clear to auscultation flower, symmetrical, unlabored. ABSENT: rales, rhonchi, wheezes Cardiovascular exam: PRESENT: RRR. ABSENT: diastolic murmur, rubs, systolic murmur Pulses: PRESENT: normal dorsalis pedis pul - Lt foot Vascular exam: PRESENT: normal capillary refill Rectal exam: PRESENT: deferred Extremities exam: PRESENT: full ROM, other - Toe and metatarsal amputation; wound VAC in place, dark erythema to dorsal aspect of foot extending to midfoot (improved). No edema.. ABSENT: calf tenderness, clubbing, pedal edema Neurological exam: PRESENT: alert, awake, oriented to person, oriented to place, oriented to time, oriented to situation, CN II-XII grossly intact. ABSENT: motor sensory deficit Psychiatric exam: PRESENT: normal mood, other - Tearful; patient expresses that he feels continued judgment that he is noncompliant. He discusses feeling overwhelmed regarding financial and living situation. Does express multiple t imes his intention to remain compliant with recommendations and follow-up appointments.. ABSENT: homicidal ideation, suicidal ideation Skin exam: PRESENT: dry, warm. ABSENT: cyanosis, rash Results Laboratory Results: 01/17/19 04:30 01/17/19 04:30 01/15/19 13:08 Foot - Left Gram Stain - Final 01/15/19 13:08 Foot - Left Wound Culture - Final Pseudomonas Aeruginosa Enterococcus Faecalis(Group D) No Anaerobic Organisms Impressions: Foot X-Ray 01/14/19 00:00 IMPRESSION: Soft tissue ulcer which has penetrated to the level distal 5th metatarsal. No conventional radiographic evidence of osteomyelitis. Assessment and Plan - Diagnosis (1) Diabetic infection of left foot Is this a current diagnosis for this admission?: Yes Plan: Now postop day #4 left fifth toe and metatarsal amputation. Acute on chronic diabetic foot infection; followed by the wound care clinic. During the last admission, the patient was offered multiple opportunities to meet with the surgical service to discuss debridement. Unfortunately, the patient continued to decline surgical intervention and opted to be discharged home on IV Ancef despite high probability of treatment failure. Infectious disease was consulted with recommendations for Ancef 2 g every 8 hours x 6 weeks. Patient is approximately 10 days into the recommended course of therapy and presents from his wound care clinic with worsening cellulitis and concern for development of osteomyelitis. WBC remains normal. CRP 222-> 29-> 41.6 Sed rate 92-> 71-> 76 Previous wound cultures with MSSA. Blood cultures (set obtained from PICC line) grew staph epidermidis. Repeat are negative at 24 hours; likely contaminant. Wound culture (01/15/2019) Pseudomonas and enterococcus The patient is admitted to the medical floor. We will continue IV Ancef 2 g every 8 hours. Patient to continue on discharge; end date February 14. Surgery is consulted; appreciate their evaluation recommendations. Post surgical wound care per surgery's expertise. To be discharged with wound VAC; follow-up in the [facility] in 1 week. Physical therapy is consulted. Analgesics as needed. (2) Diabetes mellitus Qualifiers: Diabetes mellitus type: type 2 Diabetes mellitus chcf insulin use: with terminal system operator use Diabetes mellitus complication status: with skin complications Diabetes mellitus complication detail: with foot ulcer Qu alified Code(s): E11.621 - Type 2 diabetes mellitus with foot ulcer; L97.509 - Non-pressure chronic ulcer of other part of unspecified foot with unspecified severity; Z79.4 - terminal supervisor (current) use of insulin Is this a current diagnosis for this admission?: Yes Plan: A1c 7.4%. He is placed on a consistent carb diet. Continue low-dose Lantus 26 units twice daily (on NPH 40 units twice daily at home) to prevent hypoglycemia due to likely increase dietary compliance while admitted. Accu-Cheks before meals and at bedtime with Humalog for sliding scale coverage. Registered dietitian and staff educator consulted. Hypoglycemia protocol is in place. (3) Hypertension Qualifiers: Hypertension type: essential hypertension Qualified Code(s): I10 - Essential (primary) hypertension Is this a current diagnosis for this admission?: Yes Plan: Acceptable blood pressures. Low-sodium diet. Continue home dose amlodipine and lisinopril. (4) Morbid obesity with BMI of 45.0-49.9, adult Is this a current diagnosis for this admission?: Yes Plan: Dietary discretion and lifestyle modifications are advised. Registered dietitian and staff educator consulted. (5) Hyponatremia Is this a current diagnosis for this admission?: Yes Plan: Improved; Na 135-> 133-> 136.9 He was noted to have mild hyponatremia during his last visit as well. This is likely related to his low sodium diet and Lasix use. At this time, sodium is not clinically significant. However, we will continue to trend with daily chemistries. (6) Gram-positive bacteremia Is this a current diagnosis for this admission?: Yes Plan: Ruled out; determined to be a contaminant. Blood culture 01/14/2019 (PICC line) grew staph epi. Blood culture 01/14/2019 (peripheral draw) is negative at 72 hours. Previous wound cultures were positive for MSSA. Patient is appropriately on Ancef. Current wound culture is positive for pseudomonas and gram positive cocci. Repeat blood cultures are negative at 48 hours; staph epi was likely a contami nant Continue antibiotics as above. - Time Time Spent with patient: 35 or more minutes Medications reviewed and adjusted accordingly: Yes Anticipated discharge: Home with Homehealth Within: Other - Once wound VAC arrangements are in place.
[2019-01-19] MEDS: TRAZODONE HCL 50 MG TABLET PO SCH (23:11)
[2019-01-19] MEDS: ATORVASTATIN CALCIUM 10 MG TABLET PO SCH (23:11)
[2019-01-19] MEDS: CLONAZEPAM 1 MG TABLET PO PRN (23:21)
[2019-01-20] MEDS: ZOLPIDEM TARTRATE 5 MG TABLET PO PRN (00:03)
[2019-01-20] MEDS: CEFAZOLIN SODIUM 2 GM in DEXTROSE 5%-WATER 100 ML IV SCH ×2 (06:21→13:27)
[2019-01-20] MEDS: HEPARIN SOD (PORCINE) 5,000 UNIT/ML 1 ML SYRINGE SUBCUT SCH ×2 (06:22→13:27)
[2019-01-20] MEDS: INSULIN LISPRO 100 UNIT/ML 3 ML VIAL SUBCUT SCH ×2 (08:55→12:43)
[2019-01-20] MEDS: OXYCODONE-ACETAMINOPHEN 5-325 MG TABLET PO PRN (08:59)
[2019-01-20] MEDS: DOCUSATE SODIUM 100 MG CAPSULE PO SCH (09:24)
[2019-01-20] MEDS: FUROSEMIDE 40 MG TABLET PO SCH (10:01)
[2019-01-20] MEDS: AMLODIPINE BESYLATE 10 MG TABLET PO SCH (10:01)
[2019-01-20] MEDS: LISINOPRIL 10 MG TABLET PO SCH (10:01)
[2019-01-20] MEDS: FAMOTIDINE 20 MG TABLET PO SCH (10:01)
[2019-01-20] MEDS: NORMAL SALINE INJ/PF 0.9% 10 ML SDV IV SCH (10:02)
[2019-01-20] MEDS: INSULIN GLARGINE,HUM.REC.ANLOG 1,000 UNIT/10 ML VIAL SUBCUT SCH (10:03)
[2019-01-20] MEDS ORDERED: ONDANSETRON HCL INJ/PF 4 MG/2 ML SDV IV PRN (14:00)
[2019-01-20 14:46] VITALS: BP 139/69
--- NOTE | 2019-01-21 15:20 | PDOC DISCHARGE SUMMARY ---
General - Admit/Disc Date/PCP Admission Date/Primary Care Provider: 01/14/19 13:19 TG ARANDA MD Discharge Date: 01/20/19 - Discharge Diagnosis (1) Diabetic infection of left foot Is this a current diagnosis for this admission?: Yes Summary: Now postop day #5 left fifth toe and metatarsal amputation. During the last admission, patient declined surgical intervention and opted to be discharged home on IV Ancef despite high probability of treatment failure. Infectious disease was consulted with recommendations for Ancef 2 g every 8 hours x 6 weeks; end date 02/14/19 WBC remains normal. CRP 222-> 29-> 41.6 Sed rate 92-> 71-> 76 Previous wound cultures with MSSA. Wound culture (01/15/2019) Pseudomonas and enterococcus Blood cultures remain negative. The patient was admitted to the medical floor. His IV Ancef 2 g every 8 hours was continued; to continue on discharge with end date of February 14. Surgery was consulted; now post op 5th toe and metatarsal amputation. To be discharged with wound VAC; patient is aware of importance of Home Health wound care. He reports that he does not foresee any difficulty in being available for appointments (does not intend to work while Wound vac is in place) At discharge, the patient is in stable condition. He is advised to follow up with his PCP within 1 week He is to follow-up in the [facility] in 1 week. He is to follow up with [facility] as scheduled; they were contacted and informed that the patient was provided a 1 week prescription for Percocet 5/325 for management of post operative pain. He will continue with Home Health nursing for PICC care and Wound Vac dressing changes. He is instructed to return to the emergency department as needed for concerning symptoms. (2) Diabetes mellitus Is this a current diagnosis for this admission?: Yes Summary: A1c 7.4%. Patient is instructed to resume his home insulin regiment. He is encouraged to continue dietary changes to support continued weight loss and obtain tighter glucose control. (3) Hypertension Is this a current diagnosis for this admission?: Yes Summary: Acceptable blood pressures on home medication regiment. Continue home dose amlodipine and lisinopril. (4) Morbid obesity with BMI of 45.0-49.9, adult Is this a current diagnosis for this admission?: Yes Summary: Dietary discretion and lifestyle modifications are advised. Patient has lost ~50 lbs in 6 months; he is encouraged to remain active and to continue dietary compliance. (5) Hyponatremia Is this a current diagnosis for this admission?: Yes Summary: Improved; Na 135-> 133-> 136.9 He was noted to have mild hyponatremia during his last visit as well. This is likely related to his low sodium diet and Lasix use. At this time, sodium is not clinically significant. (6) Gram-positive bacteremia Is this a current diagnosis for this admission?: Yes Summary: Ruled out; determined to be a contaminant. Blood culture 01/14/2019 (PICC line) grew staph epi. Blood culture 01/14/2019 (peripheral draw) is negative at 5 days. Previous wound cultures were positive for MSSA. Patient is appropriately on Ancef. Current wound culture is positive for pseudomonas and enterococcus faecalis Repeat blood cultures are negative at 4 days; staph epi was likely a contaminant Continue antibiotics as above. - Additional Information Resuscitation Status: Full Code Discharge Diet: Cardiac, Diabetic Discharge Activity: Activity As Tolerated, Balance Activity w/Rest Prescriptions: Clonazepam [Klonopin 1 mg Tablet] 0.5 mg PO Q12HP PRN #10 tablet PRN Reason: Oxycodone HCl/Acetaminophen [Percocet 5-325 mg Tablet] 1 tab PO Q6HP PRN #25 tab PRN Reason: For Pain Trazodone HCl [Desyrel 50 mg Tablet] 50 mg PO QHS #30 tablet Home Medications: Amlodipine Besylate [Norvasc 10 mg Tablet] 10 mg PO DAILY 01/14/19 Furosemide [Lasix 40 mg Tablet] 40 mg PO DAILY 01/14/19 Glipizide [Glucotrol 10 mg Tablet] 10 mg PO BID 01/14/19 Insulin Regular, Human [Novolin R (Reg) Insulin 100 unit/mL] 15 units SQ MEALS 01/14/19 Lisinopril [Zestril] 20 mg PO DAILY 01/14/19 Lovastatin 40 mg PO DAILY 01/14/19 Metformin HCl [Glucophage XR 500 mg Tablet] 500 mg PO BID 01/14/19 NPH, Human Insulin Isophane [Novolin N (NPH) Insulin 100 unit/mL] 40 unit SQ Q12 01/14/19 Acetaminophen [Tylenol 325 mg Tablet] 650 mg PO Q4HP PRN tablet 01/19/19 Cefazolin Sodium [Ancef Inj 1 gm Vial] 2 gm IV Q8 vial 01/19/19 Clonazepam [Klonopin 1 mg Tablet] 0.5 mg PO Q12HP PRN #10 tablet 01/19/19 Normal Saline [NaCl 0.9% Inj/Pf 10 ml Sdv] 10 ml IV .AFTER EACH USE PRN vial 01/19/19 Normal Saline [NaCl 0.9% Inj/Pf 10 ml Sdv] 10 ml IV Q12 vial 01/19/19 Trazodone HCl [Desyrel 50 mg Tablet] 50 mg PO QHS #30 tablet 01/19/19 Oxycodone HCl/Acetaminophen [Percocet 5-325 mg Tablet] 1 tab PO Q6HP PRN #25 tab 01/20/19 History of Present Illness History of Present Illness: PATRICE MORGAN is a 58 year old male with a past medical history significant for hypertension, diabetes, diabetic neuropathy, morbid obesity, right BKA, and 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 The patient is seen upon arrival to the fifth floor. He reports that he did have difficulty with his PICC line being accidentally removed resulting in 2 missed doses of Ancef, but otherwise has been compliant with his outpatient antibiotic regiment and wound care follow-up. The patient reports that at his recent wound care visit, the provider was able to explore his wound "to the bone." Patient states that he understands that he has failed antibiotics exclusively and now requires a likely amputation of a portion of his foot. He is agreeable to evaluation by surgery and recommended surgical intervention. He does report increased pain of his foot, but denies incidences of fever, chills, body aches. He reports continued compliance with his dietary restrictions and insulin regiment. He has no other questions or concerns today. No concerns per nursing. Physical Exam Vital Signs: Temp Pulse Resp BP Pulse Ox 97.9 F 101 H 16 139/69 H 97 01/20/19 14:44 01/20/19 14:44 01/20/19 14:44 01/20/19 14:44 01/20/19 14:44 Intake & Output 01/20/19 01/21/19 01/22/19 06:59 06:59 06:59 Intake Total 1672 Output Total 1500 Balance 172 Weight 116.7 kg General appearance: PRESENT: no acute distress, cooperative, obese, well- developed, well-nourished Head exam: PRESENT: atraumatic, normocephalic Eye exam: PRESENT: conjunctiva pink, EOMI, PERRLA. ABSENT: scleral icterus Mouth exam: PRESENT: moist, tongue midline Neck exam: ABSENT: carotid bruit, JVD, lymphadenopathy, thyromegaly Respiratory exam: PRESENT: clear to auscultation flower, symmetrical, unlabored. ABSENT: rales, rhonchi, wheezes Cardiovascular exam: PRESENT: RRR. ABSENT: diastolic murmur, rubs, systolic murmur Pulses: PRESENT: normal dorsalis pedis pul Vascular exam: PRESENT: normal capillary refill GI/Abdominal exam: PRESENT: normal bowel sounds, soft. ABSENT: distended, guarding, mass, organolmegaly, rebound, tenderness Rectal exam: PRESENT: deferred Extremities exam: PRESENT: full ROM, other - Rt BKA; Lt 5th toe and metatarsal amputation; wound VAC in place, dark erythema to dorsal aspect of foot extending to midfoot (improved). ABSENT: calf tenderness, clubbing, pedal edema Neurological exam: PRESENT: alert, awake, oriented to person, oriented to place, oriented to time, oriented to situation, CN II-XII grossly intact. ABSENT: motor sensory deficit Psychiatric exam: PRESENT: appropriate affect, normal mood. ABSENT: homicidal ideation, suicidal ideation Skin exam: PRESENT: dry, warm. ABSENT: cyanosis, intact, rash Results Laboratory Results: 01/17/19 04:30 01/17/19 04:30 Impressions: Foot X-Ray 01/14/19 00:00 IMPRESSION: Soft tissue ulcer which has penetrated to the level distal 5th metatarsal. No conventional radiographic evidence of osteomyelitis. Qualifiers - * PATIENT BEING DISCHARGED WITH ANY OF THE FOLLOWING DIAGNOSIS: No Plan Discharge Plan: Follow up with your primary care provider within 1 week. Follow up with the Wound Care Clinic within 1 week. Follow up with [facility] as scheduled. Take medications as prescribed. Continue following a diabetic diet and working toward continued weight loss. Make every effort to be available to Home Health agency for PICC line care and wound Vac dressing changes. Return to the Emergency Room as needed for concerning symptoms. Time Spent: Greater than 30 Minutes
== END 2019-01-20 16:14 | disposition home health service (06) | DRG 617 ==
LOC: 5 13:19
PROVIDERS: ADMIT Hospitalist; ATTEND Hospitalist
PROC: 3E0F73Z Introduction of Anti-inflammatory into Respiratory Tract, Via Natural or Artificial Opening (ICD-10-PCS; 2019-01-14)
PROC: 0Y6N0ZF Detachment at Left Foot, Partial 5th Ray, Open Approach (ICD-10-PCS; principal; 2019-01-15 12:00)
PROC: 0Y9 Anatomical Regions, Lower Extremities, Drainage (ICD-10-PCS; 2019-01-18)
DX: E11.621 Type 2 diabetes mellitus with foot ulcer (principal); L03.116 Cellulitis of left lower limb; Z68.42 Body mass index [BMI] 45.0-49.9, adult; M86.472 Chronic osteomyelitis with draining sinus, left ankle and foot; R78.81 Bacteremia; E87.1 Hypo-osmolality and hyponatremia; L97.528 Non-pressure chronic ulcer of other part of left foot with other specified severity; E78.5 Hyperlipidemia, unspecified; I10 Essential (primary) hypertension; K21.9 Gastro-esophageal reflux disease without esophagitis; D64.9 Anemia, unspecified; E11.40 Type 2 diabetes mellitus with diabetic neuropathy, unspecified; E66.01 Morbid (severe) obesity due to excess calories; B95.2 Enterococcus as the cause of diseases classified elsewhere; B96.5 Pseudomonas (aeruginosa) (mallei) (pseudomallei) as the cause of diseases classified elsewhere; Z89.511 Acquired absence of right leg below knee; Z87.891 Personal history of nicotine dependence; Z79.899 Other long term (current) drug therapy; Z79.4 Long term (current) use of insulin; Z88.2 Allergy status to sulfonamides; Z88.3 Allergy status to other anti-infective agents
CPT/HCPCS: 01480; 36415; 80048; 80053; 82962; 85025; 85027; 85652; 86140; 87040; 87070; 87075; 87077; 87186; 87205; 88304; J0690; J1642; J1644; J1815; J2250; J2270; J2704; J3010; J3490; J7030

== ENCOUNTER 2019-02-04 18:46 | Emergency (ER) | payer MEDICARE ==
[2019-02-04 21:28] VITALS: BP 129/57
--- NOTE | 2019-02-04 21:28 | ER Document Report ---
ED Extremity Problem, Lower - General Chief Complaint: Foot Pain Stated Complaint: WOUND CHECK Time Seen by Provider: 02/04/19 21:22 Primary Care Provider: TG ARANDA MD [Primary Care Provider] - Follow up as needed Mode of Arrival: Ambulatory Information source: Patient Notes: Patient is a 50-year-old male comes emergency room today complaining of left foot problems. Patient had a left little toe removed approximately [address] Staples. He had a wound VAC installed at the time and has been doing well with it until today. Patient states that it started making noise today and home health came out for their first visit to him today and said yes that there was a problem. They contacted the company who placed the wound VAC they came out and checked machines and found that everything was okay but gave him some new stuff and re-changed to the closing now. It is continue to leak and at that time everyone left and patient was concerned because his foot has been healing so well he does not want to lose his leg. This started making noise again he contacted the home health again they stated that they actually just picked him up today and do not have any order so there is nothing they can do for him now. They told him that he could take off the wound VAC and go to wet-to-dry dressings or go to the ER. So patient is come to the ER because he is not able to reach down to his feet. He states he has had some low-grade fevers off and on for the past couple of days he also states that he has a appointment with wound care this coming Sunday for the first time. He states he has talked to them and they have told him that he does not need to be on antibiotics at this point with a low-grade fever until they can evaluate. Patient is here tonight basically to have the wound VAC examined and/or taken off and wet-to-dry dressings applied. TRAVEL OUTSIDE OF THE [place] IN LAST 30 DAYS: No - HPI Patient complains to provider of: Swelling. No: Injury - Actually Where: Home Onset/Duration: Sudden Quality of pain: Achy Severity: Moderate Pain Level: 3 Recent injury: No Exacerbated by: Movement, Walking Relieved by: Nothing - Related Data Allergies/Adverse Reactions: sulfamethoxazole [From Bactrim] Allergy (Mild, Verified 02/04/19 19:00) trimethoprim [From Bactrim] Allergy (Mild, Verified 02/04/19 19:00) Past Medical History - General Information source: Patient - Social History Smoking Status: Unknown if Ever Smoked Cigarette use (# per day): No Chew tobacco use (# tins/day): No Smoking Education Provided: No Frequency of alcohol use: None Family History: Reviewed & Not Pertinent - Past Medical History Cardiac Medical History: Reports: Hx Hypercholesterolemia, Hx Hypertension Denies: Hx Congestive Heart Failure, Hx Coronary Artery Disease Endocrine Medical History: Reports: Hx Diabetes Mellitus Type 2 Renal/ Medical History: Denies: Hx Peritoneal Dialysis GI Medical History: Reports: Hx Gastroesophageal Reflux Disease Musculoskeletal Medical History: Reports Hx Musculoskeletal Deformity Psychiatric Medical History: Denies: Hx Depression Past Surgical History: Reports: Hx Orthopedic Surgery - Right BKA, Other - Jaw surgery in the remote past - Immunizations Immunizations up to date: Yes Hx Diphtheria, Pertussis, Tetanus Vaccination: Yes Review of Systems - Review of Systems Constitutional: No symptoms reported EENT: No symptoms reported Cardiovascular: No symptoms reported Respiratory: No symptoms reported Gastrointestinal: No symptoms reported Genitourinary: No symptoms reported Male Genitourinary: No symptoms reported Musculoskeletal: No symptoms reported Skin: See HPI, Other - Hemovac malfunction Hematologic/Lymphatic: No symptoms reported Neurological/Psychological: No symptoms reported, See HPI Physical Exam - Vital signs Vitals: Temp Pulse Resp BP Pulse Ox 99.3 F 103 H 18 129/57 H 99 02/04/19 19:50 02/04/19 19:50 02/04/19 19:50 02/04/19 19:50 02/04/19 19:50 Interpretation: Tachycardic - Notes Notes: PHYSICAL EXAMINATION: GENERAL: Well-appearing, well-nourished and in no acute distress. HEAD: Atraumatic, normocephalic. EYES: Pupils equal round and reactive to light, extraocular movements intact, sclera anicteric, conjunctiva are normal. LUNGS: Breath sounds clear to auscultation bilaterally and equal. No wheezes rales or rhonchi. HEART: Regular rate and rhythm without murmurs Musculoskeletal: Examination patient's area of concern is his left lower extremity unable to do physical exam on it now because of the wrapping. There is mild edema on the ankle and lower leg 1+. No other examination can be conducted at this time will be in wrap. NEUROLOGICAL: Normal speech, normal gait. Normal sensory, motor exams PSYCH: Normal mood, normal affect. SKIN: Warm, Dry, normal turgor, no rashes or lesions noted. Course - Re-evaluation Re-evalutation: 02/04/19 21:27 I have greeted and performed a rapid initial assessment of this patient. A comprehensive ED assessment and evaluation of the patient, analysis of test results and completion of the medical decision making process will be conducted by additional ED providers. Dictation of this chart was performed using voice recognition software; therefore, there may be some unintended grammatical errors. - Vital Signs Vital signs: Temp Pulse Resp BP Pulse Ox 99.3 F 103 H 18 129/57 H 99 02/04/19 19:50 02/04/19 19:50 02/04/19 19:50 02/04/19 19:50 02/04/19 19:50 Discharge - Discharge Clinical Impression: Cellulitis Qualifiers: Site of cellulitis: extremity Site of cellulitis of extremity: lower extremity Laterality: left Qualified Code(s): L03.116 - Cellulitis of left lower limb Disposition: HOME, SELF-CARE Referrals: TG ARANDA MD [Primary Care Provider] - Follow up as needed
== END 2019-02-04 23:21 | disposition left against medical advice (07) ==
LOC: ER 18:46
DX: L03.116 Cellulitis of left lower limb (principal); R50.9 Fever, unspecified; I10 Essential (primary) hypertension; E11.9 Type 2 diabetes mellitus without complications; Z89.422 Acquired absence of other left toe(s); Z89.511 Acquired absence of right leg below knee
CPT/HCPCS: 99281

== ENCOUNTER → 2019-02-06 | Outpatient (CLI) | payer MEDICARE ==
--- NOTE | 2019-02-07 08:53 | XCELERA REPORT ---
[address] [address] Lower Extremity Venous Evaluation Procedure: A bilateral duplex scan of the lower extremity veins was performed. The evaluation included responses to compression and other maneuvers with patient in the supine and standing positions to assess venous insufficiency. Right Sided Venous Evaluation Slow blood flow noted in veins, especially deep, almost Rouleaux formation. Deep venous system evaluation shows patent veins with no obstruction or significant reflux identified. Saphena Femoral junction: no reflux. Femoral vein reflux: no reflux. Greater Saphenous vein, Proximal thigh: reflux: no reflux. Greater Saphenous vein, Distal thigh: reflux: no reflux. Below Knee amputation. Left Sided Venous Evaluation Deep venous system evaluatiion shows patent veins with no obstruction or significant reflux identified. Sapheno Femoral junction: no reflux. Femoral vein reflux: no reflux. Greater Saphenous vein, Proximal thigh: reflux: no reflux. Greater Saphenous vein, Distal thigh: reflux: no reflux. Greater Saphenous vein, Proximal below knee: reflux: no reflux. Distally, bandaging. No significant Perforators identified. Interpretation Summary No duplex evidence of DVT or obstruction in the bilateral lower extremities. Presence of right Below knee amputation, bandaging on left noted. No significant reflux identified in deep or superficial veins. Slow venous flow in right lower extremity, is suggestive of proximal obstruction. Appropriate evaluation such as venogram may be indicated. Name: PATRICE MORGAN Age: 58 yrs Gender: Male : 1960 Patient Status: Outpatient Patient Location: Study Date: 02/06/2019 10:43 AM Reason For Study: LT FOOT ULCER Ordering Physician: IWONA LAST Performed By: Kiko Adan : IWONA LAST > Colton Newman
--- NOTE | 2019-02-09 13:19 | XCELERA REPORT ---
[address] [address] Lower Extremity Arterial Evaluation Name: PATRICE MORGAN Age: 58 yrs Gender: Male : 1960 Patient Status: Outpatient Patient Location: Study Date: 02/06/2019 10:19 AM Procedure: A color flow and duplex scan of the lower extremity arteries was performed bilaterally with velocity and waveform anaylsis. Reason For Study: LT FOOT ULCER Ordering Physician: IWONA LAST Performed By: Kiko Adan Measurements and Calculations Right Left SKIN FORMER PSV 176.0 175.5 cm/sec Prox PFA PSV -157.1 85.9 cm/sec Prox SFA PSV 139.2 197.6 cm/sec Mid SFA PSV -115.2 -203.3cm/sec Dist SFA PSV -80.5 -177.2cm/sec Prox Pop A PSV 34.2 146.7 cm/sec Dist KAUSHAL PSV 118.8 cm/sec Dist QUALITATIVE FIELD COORDINATOR PSV 116.9 cm/sec Devaughn Pedis PSV -256.5cm/sec Right Side Arterial Evaluation Normal velocity and triphasic waveforms noted in the Common Femoral artery . Biphasic with mildly diminished velocity in the Popliteal. Below knee amputation. Left Side Arterial Evaluation Normal velocity and triphasic waveforms noted from the Common Femoral artery to the Posterior Tibial artery . Biphasic with normal velocity in the Anterior Tibial. Collateral with increased velocity in Dorsalis Pedis. Ankle Brachial index not obtained due to bandaging. Interpretation Summary Mild hemodynamically significant lesions in the left lower extremity only, on duplex imaging, at rest. Stenosis in the left Dorsalis Pedis, apparently compensated by collateral flow. Right Below knee amputation. : IWONA LAST > Colton Newman
== END ==
LOC: SP 10:14
PROVIDERS: ATTEND Preventive Medicine Undersea and Hyperbaric Medicine
DX: L97.524 Non-pressure chronic ulcer of other part of left foot with necrosis of bone (principal)
CPT/HCPCS: 93925; 93970

== ENCOUNTER → 2019-02-13 | Outpatient (CLI) | payer MEDICARE ==
[2019-02-13 12:57] LABS: ABSOLUTE EOSINOPHILS # (AUTO) 0.1 10^3/uL (0.0-0.6); ABSOLUTE LYMPHOCYTES (AUTO) 1.5 10^3/uL (0.5-4.7); ABSOLUTE MONOCYTES (AUTO) 0.5 10^3/uL (0.1-1.4); BASOPHILS % (AUTO) 0.4 % (0-2); EOSINOPHILS % (AUTO) 1.8 % (0-6); HEMATOCRIT 34.3 % (37.9-51.0); HEMOGLOBIN 11.7 g/dL (13.5-17.0); LYMPHOCYTES % (AUTO) 17.8 % (13-45); MEAN CORPUSCULAR HEMOGLOBIN 28.3 pg (27.0-33.4); MEAN CORPUSCULAR HGB CONC 34.2 g/dL (32.0-36.0); MEAN CORPUSCULAR VOLUME 83 fl (80-97); MONOCYTES % (AUTO) 6.2 % (3-13); PLATELET COUNT 338 10^3/uL (150-450); RED BLOOD COUNT 4.15 10^6/uL (4.35-5.55); RED CELL DISTRIBUTION WIDTH 14.2 % (11.5-14.0); SEGMENTED NEUTROPHILS % (AUTO) 73.8 % (42-78); TOTAL CELLS COUNTED % (AUTO) 100 %; WHITE BLOOD COUNT 8.2 10^3/uL (4.0-10.5)
--- NOTE | 2019-02-13 13:25 | RADIOLOGY REPORT (SQ) ---
EXAM DESCRIPTION: FOOT LEFT COMPLETE COMPLETED DATE/TIME: 02/13/2019 12:44 pm REASON FOR STUDY: NON-PRS CHRONIC ULCER OTH PRT LEFT FOOT W NECROSIS OF BONE L97.524 NON-PRS CHRONI C ULCER OTH PRT LEFT FOOT W NECROSIS O COMPARISON: 01/14/2019, 01/01/2019, 12/18/2018 left foot films NUMBER OF VIEWS: Three views. TECHNIQUE: AP, lateral and oblique radiographic images acquired of the left foot. LIMITATIONS: None. FINDINGS: Since the prior films, patient has undergone amputation of the 5th toe and 5th metatarsal. In the lateral left foot soft tissues, a persistent skin ulcer is present with a amorphous soft tis lobito calcification deep to the ulcer. There is periosteal new bone formation along the 4th metatarsal diaphysis worrisome for osteomyelitis of the 4th metatarsal. Further disorganization of the left foot, with Charcot appearance, with lateral and dorsal subluxatio n of the 2nd 3rd and 4th metatarsals at the tarsometatarsal joint. Diffuse forefoot soft tissue swelling. IMPRESSION: Findings worrisome for osteomyelitis of the 4th metatarsal Charcot foot with tarsometatarsal joint subluxation TECHNICAL DOCUMENTATION: JOB ID: [id number] [employer]- All Rights Reserved Reading location - IP/workstation name: [email or web address]
[2019-02-13 13:26] LABS: ALANINE AMINOTRANSFERASE 25 U/L (21-72); ALBUMIN 3.3 g/dL (3.5-5.0); ALKALINE PHOSPHATASE 87 U/L (38-126); ANION GAP 9 (5-19); ASPARTATE AMINO TRANSFERASE 23 U/L (17-59); BILIRUBIN,DIRECT 0.4 mg/dL (0.0-0.4); BILIRUBIN,TOTAL 0.5 mg/dL (0.2-1.3); BLOOD UREA NITROGEN 18 mg/dL (7-20); C-REACTIVE PROTEIN 53.6 mg/L (<10.0); CALCIUM 9.5 mg/dL (8.4-10.2); CARBON DIOXIDE 31 mmol/L (22-30); CHLORIDE 98 mmol/L (98-107); GLUCOSE 133 mg/dL (75-110); POTASSIUM 4.5 mmol/L (3.6-5.0); SODIUM 138.3 mmol/L (137-145); TOTAL PROTEIN 7.3 g/dL (6.3-8.2)
[2019-02-13 13:46] LABS: ERYTHROCYTE SEDIMENTATION RATE 103 mm/hr (0-20)
== END ==
LOC: OD 12:26
PROVIDERS: ATTEND Preventive Medicine Undersea and Hyperbaric Medicine
DX: L97.524 Non-pressure chronic ulcer of other part of left foot with necrosis of bone (principal)
CPT/HCPCS: 36415; 80053; 85025; 85652; 86140

== ENCOUNTER → 2019-03-24 | Outpatient (CLI) | payer MEDICARE ==
[2019-03-24 17:36] LABS: ABSOLUTE EOSINOPHILS # (AUTO) 0.1 10^3/uL (0.0-0.6); ABSOLUTE LYMPHOCYTES (AUTO) 1.4 10^3/uL (0.5-4.7); ABSOLUTE MONOCYTES (AUTO) 0.5 10^3/uL (0.1-1.4); ABSOLUTE NEUT (AUTO) 6.6 10^3/uL (1.7-8.2); BASOPHILS % (AUTO) 0.3 % (0-2); EOSINOPHILS % (AUTO) 1.3 % (0-6); HEMATOCRIT 34.5 % (37.9-51.0); HEMOGLOBIN 11.4 g/dL (13.5-17.0); LYMPHOCYTES % (AUTO) 16.8 % (13-45); MEAN CORPUSCULAR HEMOGLOBIN 26.3 pg (27.0-33.4); MEAN CORPUSCULAR HGB CONC 33.1 g/dL (32.0-36.0); MEAN CORPUSCULAR VOLUME 79 fl (80-97); MONOCYTES % (AUTO) 5.3 % (3-13); PLATELET COUNT 269 10^3/uL (150-450); RED BLOOD COUNT 4.34 10^6/uL (4.35-5.55); RED CELL DISTRIBUTION WIDTH 15.7 % (11.5-14.0); SEGMENTED NEUTROPHILS % (AUTO) 76.3 % (42-78); TOTAL CELLS COUNTED % (AUTO) 100 %; WHITE BLOOD COUNT 8.6 10^3/uL (4.0-10.5)
[2019-03-24 18:05] LABS: ALANINE AMINOTRANSFERASE 26 U/L (21-72); ALBUMIN 3.7 g/dL (3.5-5.0); ALKALINE PHOSPHATASE 115 U/L (38-126); ANION GAP 12 (5-19); ASPARTATE AMINO TRANSFERASE 23 U/L (17-59); BILIRUBIN,DIRECT 0.3 mg/dL (0.0-0.4); BILIRUBIN,TOTAL 0.6 mg/dL (0.2-1.3); BLOOD UREA NITROGEN 18 mg/dL (7-20); C-REACTIVE PROTEIN 15.6 mg/L (<10.0); CARBON DIOXIDE 30 mmol/L (22-30); CHLORIDE 98 mmol/L (98-107); GLUCOSE 221 mg/dL (75-110); POTASSIUM 4.7 mmol/L (3.6-5.0); SODIUM 140.3 mmol/L (137-145); TOTAL PROTEIN 7.6 g/dL (6.3-8.2)
[2019-03-24 18:19] LABS: ERYTHROCYTE SEDIMENTATION RATE 81 mm/hr (0-20)
--- NOTE | 2019-03-25 13:35 | RADIOLOGY REPORT (SQ) ---
EXAM DESCRIPTION: FOOT LEFT COMPLETE COMPLETED DATE/TIME: 03/24/2019 5:18 pm REASON FOR STUDY: NON-PRS CHRONIC ULCER OTH PRT LEFT FOOT W NECROSIS OF BONE L97.524 NON-PRS CHRONI C ULCER OTH PRT LEFT FOOT W NECROSIS O E11.621 TYPE 2 DIABETES MELLITUS WITH FOOT ULCER COMPARISON: None. NUMBER OF VIEWS: Three views. TECHNIQUE: AP, lateral and oblique radiographic images acquired of the left foot. LIMITATIONS: None. FINDINGS: MINERALIZATION: Osteopenia. BONES: No acute fracture dislocation. There is marked deformity of the 5th metatarsal. Unusual appe arance of the 5th metatarsal. Cannot exclude osteomyelitis. JOINTS: Charcot joints are present in the tarsal metatarsal joints. SOFT TISSUES: Soft tissue swelling. OTHER: No other significant finding. IMPRESSION: Cannot exclude osteomyelitis in the 5th metatarsal. Charcot joints in the tarsal metata rsal joints. TECHNICAL DOCUMENTATION: JOB ID: [id number] [employer]- All Rights Reserved Reading location - IP/workstation name: [email or web address]
== END ==
LOC: WC 16:43
PROVIDERS: ATTEND Preventive Medicine Undersea and Hyperbaric Medicine
DX: E11.621 Type 2 diabetes mellitus with foot ulcer (principal); L97.524 Non-pressure chronic ulcer of other part of left foot with necrosis of bone; M85.872 Other specified disorders of bone density and structure, left ankle and foot
CPT/HCPCS: 36415; 80053; 83036; 85025; 85652; 86140

== ENCOUNTER → 2019-04-25 | Outpatient (CLI) | payer MEDICARE ==
[2019-04-25 14:18] LABS: ABSOLUTE EOSINOPHILS # (AUTO) 0.1 10^3/uL (0.0-0.6); ABSOLUTE LYMPHOCYTES (AUTO) 1.2 10^3/uL (0.5-4.7); ABSOLUTE MONOCYTES (AUTO) 0.5 10^3/uL (0.1-1.4); ABSOLUTE NEUT (AUTO) 4.2 10^3/uL (1.7-8.2); BASOPHILS % (AUTO) 0.5 % (0-2); EOSINOPHILS % (AUTO) 1.9 % (0-6); HEMATOCRIT 38.2 % (37.9-51.0); HEMOGLOBIN 12.6 g/dL (13.5-17.0); LYMPHOCYTES % (AUTO) 20.5 % (13-45); MEAN CORPUSCULAR HEMOGLOBIN 26.5 pg (27.0-33.4); MEAN CORPUSCULAR HGB CONC 32.8 g/dL (32.0-36.0); MEAN CORPUSCULAR VOLUME 81 fl (80-97); MONOCYTES % (AUTO) 7.9 % (3-13); PLATELET COUNT 203 10^3/uL (150-450); RED BLOOD COUNT 4.73 10^6/uL (4.35-5.55); RED CELL DISTRIBUTION WIDTH 17.6 % (11.5-14.0); SEGMENTED NEUTROPHILS % (AUTO) 69.2 % (42-78); TOTAL CELLS COUNTED % (AUTO) 100 %; WHITE BLOOD COUNT 6.1 10^3/uL (4.0-10.5)
--- NOTE | 2019-04-25 14:47 | RADIOLOGY REPORT (SQ) ---
EXAM DESCRIPTION: FOOT LEFT COMPLETE COMPLETED DATE/TIME: 04/25/2019 2:18 pm REASON FOR STUDY: ULCER L97.524 NON-PRS CHRONIC ULCER OTH PRT LEFT FOOT W NECROSIS O COMPARISON: 12/18/2018, 01/01/2019, 01/14/2019, 02/13/2019, 03/24/2019 left foot films NUMBER OF VIEWS: Three views. TECHNIQUE: AP, lateral and oblique radiographic images acquired of the left foot. LIMITATIONS: Foot is immobilized in a fiberglass splint FINDINGS: Persistent soft tissue ulcer over the 5th MTP joint region, ulcer is coated in radiopaque ointment. Increase in bony density of the 5th metatarsal as compared to 03/24/2019, likely reflects healing osteo myelitis. Post prior 5th toe amputation. Charcot foot with fragmentation, joint space irregularity, subluxation of the metatarsals with respec t to the tarsal bones. Healing callus is seen around the base of the 1st metatarsal. These findings are similar compared to multiple previous studies. IMPRESSION: Increase in bony density of the 5th metatarsal likely reflects healing osteomyelitis. Further callus formation around Lisfranc deformities from Charcot foot at the tarsometatarsal joints TECHNICAL DOCUMENTATION: JOB ID: [id number] [employer]- All Rights Reserved Reading location - IP/workstation name: [email or web address]
[2019-04-25 14:49] LABS: ALANINE AMINOTRANSFERASE 22 U/L (21-72); ALBUMIN 4.1 g/dL (3.5-5.0); ALKALINE PHOSPHATASE 75 U/L (38-126); ANION GAP 10 (5-19); ASPARTATE AMINO TRANSFERASE 24 U/L (17-59); BILIRUBIN,DIRECT 0.2 mg/dL (0.0-0.4); BILIRUBIN,TOTAL 0.8 mg/dL (0.2-1.3); BLOOD UREA NITROGEN 14 mg/dL (7-20); C-REACTIVE PROTEIN 17.1 mg/L (<10.0); CALCIUM 9.4 mg/dL (8.4-10.2); CARBON DIOXIDE 31 mmol/L (22-30); CHLORIDE 100 mmol/L (98-107); GLUCOSE 218 mg/dL (75-110); POTASSIUM 4.3 mmol/L (3.6-5.0); SODIUM 140.5 mmol/L (137-145); TOTAL PROTEIN 7.7 g/dL (6.3-8.2)
[2019-04-25 14:59] LABS: ERYTHROCYTE SEDIMENTATION RATE 45 mm/hr (0-20)
== END ==
LOC: WC 13:47
PROVIDERS: ATTEND Nurse Practitioner Family
DX: L97.524 Non-pressure chronic ulcer of other part of left foot with necrosis of bone (principal); A52.16 Charcot's arthropathy (tabetic)
CPT/HCPCS: 36415; 80053; 85025; 85652; 86140

== ENCOUNTER → 2019-07-10 | Outpatient (CLI) | payer MEDICARE ==
[2019-07-10 15:41] LABS: ABSOLUTE EOSINOPHILS # (AUTO) 0.1 10^3/uL (0.0-0.6); ABSOLUTE LYMPHOCYTES (AUTO) 1.1 10^3/uL (0.5-4.7); ABSOLUTE MONOCYTES (AUTO) 0.3 10^3/uL (0.1-1.4); ABSOLUTE NEUT (AUTO) 4.1 10^3/uL (1.7-8.2); BASOPHILS % (AUTO) 0.3 % (0-2); EOSINOPHILS % (AUTO) 1.4 % (0-6); HEMATOCRIT 41.3 % (37.9-51.0); LYMPHOCYTES % (AUTO) 19.1 % (13-45); MEAN CORPUSCULAR HEMOGLOBIN 28.3 pg (27.0-33.4); MEAN CORPUSCULAR HGB CONC 33.9 g/dL (32.0-36.0); MEAN CORPUSCULAR VOLUME 83 fl (80-97); MONOCYTES % (AUTO) 5.5 % (3-13); PLATELET COUNT 164 10^3/uL (150-450); RED BLOOD COUNT 4.95 10^6/uL (4.35-5.55); RED CELL DISTRIBUTION WIDTH 13.6 % (11.5-14.0); SEGMENTED NEUTROPHILS % (AUTO) 73.7 % (42-78); TOTAL CELLS COUNTED % (AUTO) 100 %; WHITE BLOOD COUNT 5.6 10^3/uL (4.0-10.5)
[2019-07-10 16:12] LABS: ALBUMIN 4.1 g/dL (3.5-5.0); ALKALINE PHOSPHATASE 66 U/L (38-126); ANION GAP 10 (5-19); ASPARTATE AMINO TRANSFERASE 24 U/L (17-59); BILIRUBIN,DIRECT 0.3 mg/dL (0.0-0.4); BLOOD UREA NITROGEN 13 mg/dL (7-20); CALCIUM 9.2 mg/dL (8.4-10.2); CARBON DIOXIDE 29 mmol/L (22-30); CHLORIDE 99 mmol/L (98-107); GLUCOSE 264 mg/dL (75-110); POTASSIUM 4.1 mmol/L (3.6-5.0); TOTAL PROTEIN 7.2 g/dL (6.3-8.2)
[2019-07-10 16:19] LABS: C-REACTIVE PROTEIN < 5.0 mg/L (<10.0)
[2019-07-10 16:22] LABS: ERYTHROCYTE SEDIMENTATION RATE 11 mm/hr (0-20)
--- NOTE | 2019-07-10 16:37 | RADIOLOGY REPORT (SQ) ---
EXAM DESCRIPTION: FOOT LEFT COMPLETE COMPLETED DATE/TIME: 07/10/2019 3:30 pm REASON FOR STUDY: NON-PRS CHRONIC ULCER OTH PRT LEFT FOOT W NECROSIS OF BONE E11.621 TYPE 2 DIABETE S MELLITUS WITH FOOT ULCER L97.524 NON-PRS CHRONIC ULCER OTH PRT LEFT FOOT W NECROSIS O COMPARISON: None. NUMBER OF VIEWS: Three views. TECHNIQUE: AP, lateral and oblique radiographic images acquired of the left foot. LIMITATIONS: None. FINDINGS: MINERALIZATION: Normal. BONES: Charcot foot. Amputation of 5th digit. No definite acute osteomyelitis. JOINTS: Charcot foot. SOFT TISSUES: No soft tissue swelling. No foreign body. OTHER: No other significant finding. IMPRESSION: No definite acute osteomyelitis is appreciated. TECHNICAL DOCUMENTATION: JOB ID: [id number]- All Rights Reserved Reading location - IP/workstation name: [email or web address]
== END ==
LOC: WC 14:51
PROVIDERS: ATTEND Preventive Medicine Undersea and Hyperbaric Medicine
DX: E11.621 Type 2 diabetes mellitus with foot ulcer (principal); L97.524 Non-pressure chronic ulcer of other part of left foot with necrosis of bone
CPT/HCPCS: 36415; 80053; 83036; 85025; 85652; 86140